=== PATIENT | female | born 1955 | race Caucasian/White ===

== ENCOUNTER 2019-03-24 08:15 | Outpatient (CLI) | payer MEDICARE, MEDICAID, SELFPAY ==
[2019-03-24 09:05] LABS: Basophils % 0.5 %; Eosinophils # 0.3 10^3/uL (0.0-0.8); Eosinophils % 5.1 %; Hematocrit 36.4 % (37.0-47.0); Hemoglobin 12.1 g/dL (11.5-15.3); Lymphocytes # 1.3 10^3/uL (0.8-4.8); Lymphocytes % 23.1 %; Mean Corpuscular HGB Conc 33.2 g/dL (30.0-36.0); Mean Corpuscular Hemoglobin 28.8 pg (28.0-34.0); Mean Corpuscular Volume 86.7 fL (81-99); Mean Platelet Volume 12.1 fL (7.4-10.4); Monocytes # 0.4 10^3/uL (0.2-0.9); Monocytes % 6.7 %; Neutrophils # 3.5 10^3/uL (1.8-7.7); Neutrophils % 64.4 %; Nucleated Red Blood Cells % 0 %; Platelet Count 80 10^3/cmm (130-400); Red Cell Distribution Width 13.5 % (12.1-15.1); White Blood Count 5.5 10^3/uL (4.0-10.0)
[2019-03-24 09:22] LABS: Creatinine Urine, Random 49 mg/dL (28-217)
[2019-03-24 09:24] LABS: Microalbum Creatinine Ratio Ur 20 mg/dL (0-20); Microalbumin Random Urine 1 ug/dL (0-20)
[2019-03-24 09:30] LABS: Alanine Aminotransferase 36 U/L (0-33); Albumin Level 3.7 g/dL (3.5-5.2); Alkaline Phosphatase 116 IU/L (35-105); Anion Gap 15.2 (5-19); Aspartate Amino Transferase 44 U/L (0-32); Blood Urea Nitrogen 9 mg/dL (8-23); Calcium 10.5 mg/Dl (8.8-10.2); Carbon Dioxide 25 mmol/L (22-29); Chloride 101 mmol/L (98-107); Chol HDL Ratio 4.71 mg/dL (0.0-4.40); Cholesterol 226 mg/dL (0-200); Globulin 3.2 g/dL (1.3-4.6); Glomerular Filtration Rate 125.4 mL/min (90-130); Glucose 188 mg/dL (74-106); HDL Cholesterol 48 mg/dL (60-100); LDL Cholesterol Calculated 142 mg/dL (50-129); LDL HDL Ratio 2.96 RATIO (0.00-3.22); Potassium 4.2 mmol/L (3.5-5.1); Sodium 137 mmol/L (136-145); Thyroid Stimulating Hormone 1.77 uIU/mL (0.27-4.20); Total Bilirubin 0.4 mg/dL (0.15-1.2); Total Protein 6.9 g/dL (6.6-8.7); Triglycerides 178 mg/dL (0-150)
[2019-03-25 09:23] LABS: Estmated Average Glucose 203; Hemoglobin A1C 8.7 % (4.0-6.0)
== END 2019-03-24 08:16 | disposition home or self-care (01) ==
LOC: LAB 08:20
PROVIDERS: Family Provider Family Medicine; PCP Family Medicine; Visit Provider Family Medicine
DX: D64.9 Anemia, unspecified (principal); E11.9 Type 2 diabetes mellitus without complications; E03.9 Hypothyroidism, unspecified; E78.00 Pure hypercholesterolemia, unspecified
CPT/HCPCS: 36415; 80053; 80061; 82044; 83036; 84443; 85025

== ENCOUNTER 2019-06-24 09:18 | Outpatient (CLI) | payer MEDICARE, MEDICAID, SELFPAY ==
[2019-06-24 10:08] LABS: Hematocrit 36.6 % (37.0-47.0); Hemoglobin 11.9 g/dL (11.5-15.3); Mean Corpuscular HGB Conc 32.5 g/dL (30.0-36.0); Mean Corpuscular Hemoglobin 29.7 pg (28.0-34.0); Mean Corpuscular Volume 91.3 fL (81-99); Mean Platelet Volume 12.6 fL (7.4-10.4); Platelet Count 79 10^3/cmm (130-400); Red Blood Count 4.01 10^6/uL (4.1-5.3); Red Cell Distribution Width 13.4 % (12.1-15.1); White Blood Count 5.8 10^3/uL (4.0-10.0)
[2019-06-24 10:30] LABS: Alanine Aminotransferase 32 U/L (0-33); Albumin Level 3.9 g/dL (3.5-5.2); Alkaline Phosphatase 91 IU/L (35-105); Anion Gap 15.3 (5-19); Aspartate Amino Transferase 48 U/L (0-32); Blood Urea Nitrogen 6 mg/dL (8-23); Calcium 9.6 mg/dL (8.5-10.5); Carbon Dioxide 24 mmol/L (22-29); Chloride 102 mmol/L (98-107); Chol HDL Ratio 4.44 mg/dL (0.0-4.40); Cholesterol 213 mg/dL (0-200); Globulin 3.2 g/dL (1.3-4.6); Glomerular Filtration Rate 125.4 mL/min (90-130); Glucose 171 mg/dL (65-115); HDL Cholesterol 48 mg/dL (60-100); LDL Cholesterol Calculated 140 mg/dL (50-129); Osmolality Calculated 284 mOsm/kg (285-295); Potassium 4.3 mmol/L (3.5-5.1); Sodium 137 mmol/L (136-145); Thyroid Stimulating Hormone 1.07 uIU/mL (0.27-4.20); Total Bilirubin 0.4 mg/dL (0.15-1.2); Total Protein 7.1 g/dL (6.6-8.7); Triglycerides 126 mg/dL (0-150); VLDL Cholestrol Calculation 25 mg/dL (0-30)
[2019-06-24 10:46] LABS: Absolute Eosinophils 0.1 10^3/cmm (0.0-0.7); Absolute Segmented Neutrophil 3.7 10/cmm (1.6-7.1); Eosinophils 3 %; Lymphocytes 32 %; Monocytes Absolute 0.1 10^3/cmm (0.1-0.6); Platelet Estimate Decreased (Normal); Segmented Neutrophils 64 %; Total Cells Counted 100 (0-100)
[2019-06-24 11:03] LABS: Estmated Average Glucose 163; Hemoglobin A1C 7.3 % (4.0-6.0)
== END 2019-06-24 09:19 | disposition home or self-care (01) ==
PROVIDERS: Family Provider Family Medicine; PCP Family Medicine; Visit Provider Family Medicine
DX: D64.9 Anemia, unspecified (principal); E11.9 Type 2 diabetes mellitus without complications; E03.9 Hypothyroidism, unspecified; E78.00 Pure hypercholesterolemia, unspecified
CPT/HCPCS: 80053; 80061; 83036; 84443; 85007; 85027

== ENCOUNTER 2019-07-21 09:53 | Outpatient (CLI) | payer MEDICARE, MEDICAID, SELFPAY ==
--- NOTE | 2019-07-21 10:02 | US_ITS ---
WS: [id number] ULTRASOUND ABDOMEN LIMITED CLINICAL INFORMATION: CIRRHOSIS OF LIVER COMPARISON: Ultrasound January 18, 2019 FINDINGS: Technically difficult examination. Hepatomegaly with trace perihepatic fluid. Size: Enlarged Craniocaudal length: 17.9 cm. Echogenicity: Coarse echogenicity Surface nodularity: Present Mass (size and location): 1.5 x 1.0 hypoechoic ill-defined nodule left hepatic lobe is unchanged. Bile ducts Intrahepatic ducts: Normal. Common bile duct diameter: 0.5 cm. Gallbladder Cholecystectomy Pancreas Normal as visualized. Right kidney: Normal. Hydronephrosis: None. Size: 10.1 cm x 4.1 cm x 5.1 cm. Abdominal aorta and IVC Visualized portions are normal. Ascites: None. US/US abdomen limited [id number] IMPRESSION: 1. Hepatomegaly with coarse hepatic echogenicity consistent with hepatocellula r disease. Slightly cirrhotic configuration. 2. Trace perihepatic ascites. 3. Stable small hypoechoic nodule along the left hepatic lobe measuring 1.5 x 1.0 cm again is ill-defined and not significantly changed. 4. Prior cholecystectomy. 5. Portal vein and splenic vein appear patent. 6. No hydronephrosis in right kidney.
== END 2019-07-21 09:54 | disposition home or self-care (01) ==
LOC: RAD 09:58
PROVIDERS: PCP Family Medicine; Visit Provider Internal Medicine Gastroenterology
DX: K74.60 Unspecified cirrhosis of liver (principal); R16.0 Hepatomegaly, not elsewhere classified
CPT/HCPCS: 76705

== ENCOUNTER 2019-12-24 09:53 | Outpatient (CLI) | payer MEDICARE, MEDICAID, SELFPAY ==
[2019-12-24 10:21] LABS: Basophils # 0.1 10^3/uL (0.0-0.1); Basophils % 0.7 %; Eosinophils # 0.3 10^3/uL (0.0-0.8); Eosinophils % 3.8 %; Hematocrit 38.1 % (37.0-47.0); Hemoglobin 12.2 g/dL (11.5-15.3); Lymphocytes # 1.2 10^3/uL (0.8-4.8); Lymphocytes % 17.1 %; Mean Corpuscular Hemoglobin 29.5 pg (28.0-34.0); Mean Platelet Volume 12.1 fL (7.4-10.4); Monocytes # 0.6 10^3/uL (0.2-0.9); Monocytes % 7.8 %; Neutrophils # 4.97 10^3/uL (1.8-7.7); Neutrophils % 70.3 %; Nucleated Red Blood Cells % 0 %; Platelet Count 97 10^3/cmm (130-400); Red Blood Count 4.14 10^6/uL (4.1-5.3); Red Cell Distribution Width 13.9 % (12.1-15.1); White Blood Count 7.1 10^3/uL (4.0-10.0)
[2019-12-24 10:41] LABS: Anion Gap 13.4 (5-19); Blood Urea Nitrogen 8 mg/dL (8-23); Calcium 9.7 mg/dL (8.5-10.5); Carbon Dioxide 24 mmol/L (22-29); Chloride 106 mmol/L (98-107); Glucose 128 mg/dL (65-115); Osmolality Calculated 288 mOsm/kg (285-295); Potassium 4.4 mmol/L (3.5-5.1); Sodium 139 mmol/L (136-145)
[2019-12-24 11:51] LABS: Estmated Average Glucose 154
== END 2019-12-24 09:54 | disposition home or self-care (01) ==
LOC: LAB 10:04
PROVIDERS: PCP Family Medicine; Visit Provider Family Medicine
DX: D64.9 Anemia, unspecified (principal); K74.60 Unspecified cirrhosis of liver; D61.818 Other pancytopenia; E11.9 Type 2 diabetes mellitus without complications
CPT/HCPCS: 36415; 80048; 83036; 85025

== ENCOUNTER 2020-01-14 17:50 | Emergency (ER) | payer MEDICARE, MEDICAID, SELFPAY ==
[2020-01-14 17:59] VITALS: BP 153/80; PULSE 72; RESP 16; TEMP 36.8; O2SAT 96; BMI 40.4
[2020-01-14 18:24] LABS: Basophils % 0.4 %; Eosinophils # 0.3 10^3/uL (0.0-0.8); Eosinophils % 3.4 %; Hematocrit 37.2 % (37.0-47.0); Hemoglobin 12.1 g/dL (11.5-15.3); Lymphocytes # 1.2 10^3/uL (0.8-4.8); Mean Corpuscular HGB Conc 32.5 g/dL (30.0-36.0); Mean Corpuscular Hemoglobin 29.2 pg (28.0-34.0); Mean Corpuscular Volume 89.9 fL (81-99); Mean Platelet Volume 11.3 fL (7.4-10.4); Monocytes # 0.6 10^3/uL (0.2-0.9); Monocytes % 6.9 %; Neutrophils # 6.04 10^3/uL (1.8-7.7); Neutrophils % 73.9 %; Nucleated Red Blood Cells % 0 %; Platelet Count 116 10^3/cmm (130-400); Red Blood Count 4.14 10^6/uL (4.1-5.3); Red Cell Distribution Width 13.6 % (12.1-15.1); White Blood Count 8.2 10^3/uL (4.0-10.0)
[2020-01-14 18:39] LABS: Alanine Aminotransferase 34 U/L (0-33); Albumin Level 4.1 g/dL (3.5-5.2); Alkaline Phosphatase 92 IU/L (35-105); Aspartate Amino Transferase 52 U/L (0-32); Blood Urea Nitrogen 9 mg/dL (8-23); Calcium 9.5 mg/dL (8.5-10.5); Carbon Dioxide 26 mmol/L (22-29); Chloride 102 mmol/L (98-107); Globulin 2.6 g/dL (1.3-4.6); Glomerular Filtration Rate 101.3 mL/min (90-130); Glucose 109 mg/dL (65-115); Lipase 40 U/L (13-60); Osmolality Calculated 283 mOsm/kg (285-295); Sodium 137 mmol/L (136-145); Total Bilirubin 0.7 mg/dL (0.15-1.2); Total Protein 6.7 g/dL (6.6-8.7)
--- NOTE | 2020-01-14 20:13 | W.ED.ABDPA2 ---
HPI - Abdominal Pain General: Chief Complaint: Abdominal Pain Stated Complaint: adominal pain, swelling Time Seen by Provider: 01/14/20 19:59 Source: patient Mode of arrival: ambulatory Limitations: no limitations History of Present Illness: HPI narrative: 64-year-old female states she has been having abdominal pain over the last month. States the pain is been diffuse and cramping and worsening over the last 3 days. She denies any fever. Patient denies any vomiting or diarrhea. She denies any worsening or improving factors. She states her pain is currently a 5 out of 10. MD elicited complaint: abdominal pain Associated Symptoms: Denies chills, dysuria and fever(s) Review of Systems Const: Denies: fever(s), chills, body aches or change in appetite Eyes: Denies: blurry vision or eye discomfort ENMT: Denies: throat pain or dental pain Card: Denies: chest pain Resp: Denies: dyspnea GI: Reports: abdominal pain : Denies: dysuria Musc: Denies: neck pain or back pain Skin/Breast: Denies: rash Neuro: Denies: headache(s) Psych: Denies: depression Prabhu/Lymph: Denies: easy bruising All/Imm: Denies: urticaria Physical Exam Const: COMMON NORMALS: no acute distress, patient oriented x3 and healthy appearing HENMT: COMMON NORMALS: normocephalic and atraumatic HEAD & SCALP: normocephalic and atraumatic Eye: COMMON NORMALS: Equal, round and reactive pupils present and EOMs intact bilaterally PUPIL: Yes Equal, round and reactive pupils present Neck/C-Spine: COMMON NORMALS: full ROM and supple Chest: COMMONS NORMALS: normal inspection of the chest and normal palpation of entire chest wall Resp: COMMON NORMALS: normal respiratory effort, No retractions, No use of accessory muscles and clear to auscultation bilaterally AUSCULTATION: clear to auscultation bilaterally Cardio: COMMON NORMALS: regular rate, regular rhythm and No murmurs present (Cardio) RATE: regular rate RHYTHM: regular rhythm GI: COMMON NORMALS: Normal to inspection, nondistended, normoactive bowel sounds present, non-tender and no masses PALPATION: Yes Tenderness to palpation present (GI) (Diffuse) Extremity: COMMON NORMALS: normal to inspection and full ROM Neuro: COMMON NORMALS: patient oriented x3, moves all extremities and no focal motor deficits Psych: COMMON NORMALS: mental status grossly normal, Normal thought process present and cooperative THOUGHT PROCESS: Normal thought process present Skin: COMMON NORMALS: no rashes or lesions noted and no wounds GENERAL SKIN EXAM: no rashes or lesions noted Course Vital Signs: Vital signs: Vital Signs Temperature 98.3 F 01/14/20 17:59 Pulse Rate 72 01/14/20 17:59 Respiratory Rate 18 01/14/20 20:24 Blood Pressure 153/80 01/14/20 17:59 Pulse Oximetry 96 01/14/20 17:59 MDM - Abdominal Pain MDM Narrative: Medical decision making narrative: Phyllis presents with abdominal pain for months. CT did show ascites along with lymphadenopathy and pulmonary nodules. I informed her she needs to follow-up with her primary care doctor along with surgery. With these findings I am concerned of a possible cancer as well. I informed her it is important she follows up as soon as possible. She is to return if worsening. Patient's pain is improved and she is stable for discharge. Lab Data: Labs: Lab Results 01/14/20 01/14/20 01/14/20 Range/Units 18:15 18:15 20:35 WBC 8.2 (4.0-10.0) 10^3/ uL RBC 4.14 (4.1-5.3) 10^6/u L Hgb 12.1 (11.5-15.3) g/dL Hct 37.2 (37.0-47.0) % MCV 89.9 (81-99) fL MCH 29.2 (28.0-34.0) pg MCHC 32.5 (30.0-36.0) g/dL RDW 13.6 (12.1-15.1) % Plt Count 116 L (130-400) 10^3/c mm MPV 11.3 H (7.4-10.4) fL Neut % (Auto) 73.9 % Lymph % (Auto) 15.0 % [place] % (Auto) 6.9 % Eos % (Auto) 3.4 % Baso % (Auto) 0.4 % Neut # (Auto) 6.04 (1.8-7.7) 10^3/u L Lymph # (Auto) 1.2 (0.8-4.8) 10^3/u L School[place] # (Auto) 0.6 (0.2-0.9) 10^3/u L Eos # (Auto) 0.3 (0.0-0.8) 10^3/u L Baso # (Auto) 0.0 (0.0-0.1) 10^3/u L Nucleated RBC % (a uto) 0 % Nucleated RBCs # 0.0 /100WBC Sodium 137 (136-145) mmol/L Potassium 4.0 (3.5-5.1) mmol/L Chloride 102 (98-107) mmol/L Carbon Dioxide 26 (22-29) mmol/L Anion Gap 13.0 (5-19) BUN 9 (8-23) mg/dL Creatinine 0.6 (0.5-0.9) mg/dL GFR Calculation 101.3 (90-130) mL/min Glucose 109 (65-115) mg/dL Calculated Osmolal ity 283 L (285-295) mOsm/k g Calcium 9.5 (8.5-10.5) mg/dL Total Bilirubin 0.7 (0.15-1.2) mg/dL AST 52 H (0-32) U/L ALT 34 H (0-33) U/L Alkaline Phosphata se 92 (35-105) IU/L Total Protein 6.7 (6.6-8.7) g/dL Albumin 4.1 (3.5-5.2) g/dL Globulin 2.6 (1.3-4.6) g/dL Lipase 40 (13-60) U/L Urine Color Yellow (Yellow) Urine Appearance Sl cloudy A (CLEAR) Urine pH 5 (5-7) Ur Specific Gravit y 1.015 (1.005-1.030) Urine Protein Neg (Negative) Urine Glucose (UA) Norm (Normal) Urine Ketones Negative (Negative) Urine Blood Neg (Negative) Urine Nitrate Negative (Negative) Urine Bilirubin Neg (Negative) Urine Urobilinogen Norm (Negative) mg/dL Ur Leukocyte Bessy ase 2+ H (Negative) Amorphous Sediment Not Reportable Imaging Data ^: CT Abd/Pel: Radiologist's impression: [address] [address] [address] Scan Report Signed Patient: Lexi Halln Margarette Unit #: [id number] : 1955 Age/Sex: 64 / F ADM Date: 01/14/20 Loc: ER Room/Bed: Attending Dr: Ordering Provider/Ordering MD: Sundeep Zuleta MD Date of Service: 01/14/20 Procedure(s): CT abdomen pelvis w con* [id number] Accession Number(s): [id number] Report Number: [id number] PROCEDURE INFORMATION: Exam: CT Abdomen And Pelvis With Contrast Exam date and time: 01/14/2020 8:34 PM Age: 64 years old Clinical indication: Mass, lump, or swelling; Generalized; Abdominal pain; Prior surgery; Surgery type: Appy, hysterectomy, cholecystectomy, back; Additional info: Abd pain TECHNIQUE: Imaging protocol: Computed tomography of the abdomen and pelvis with intravenous contrast. Radiation optimization: All CT scans at this facility use at least one of these dose optimization techniques: automated exposure control; mA and/or kV adjustment per patient size (includes targeted exams where dose is matched to clinical indication); or iterative reconstruction. Contrast material: OMNI 300; Contrast volume: 95 ml; Contrast route: INTRAVENOUS (IV); COMPARISON: CT abdomen pelvis w con* [id number] 03/19/2016 10:36 AM RADIATION DOSE METRICS: Total DLP (mGy-cm): 1533.47 FINDINGS: Lungs: Within the lung bases numerous small pulmonary nodules most under 4 mm. The largest measures 6.8 mm located in the right lower lobe series 2, image 7. Where comparison can be made there appears to be no significant overall change since 03/19/2016. Liver: Cirrhosis of the liver. No visible hepatic mass or cystic structure. Gallbladder and bile ducts: Status post cholecystectomy. Pancreas: Unremarkable. No ductal dilation. Spleen: Splenomegaly. Adrenal glands: Normal. No mass. Kidneys and ureters: Unremarkable. No hydronephrosis. Stomach and bowel: Diverticulosis coli, primarily the sigmoid colon, without visible evidence of acute diverticulitis. Nonobstructive bowel pattern. No visible adynamic or reactive ileus. Appendix: Status post appendectomy. Intraperitoneal space: Moderate volume intraperitoneal ascites. Diffuse mesenteric edema. Vasculature: Portal vein remains patent. Evidence of portal venous hypertension. The abdominal aorta is nonaneurysmal. Mild arterial sclerotic disease. Lymph nodes: Retroperitoneal pericaval and periaortic, para celiac, fausto hepatis, and perigastric lymphadenopathy. Largest para-aortic lymphadenopathy complex measures 31 mm x 25 mm. Rare prominent retrocrural lymph node. Urinary bladder: Unremarkable as visualized. Reproductive: Status post hysterectomy. Bones/joints: Advanced degenerative disc disease L4/5 with disc space height loss and vacuum disc phenomenon. No visible osteolytic or osteoblastic destructive process. Soft tissues: Bilateral inguinal hernias containing fat only. Other findings: Marked obesity. CT/CT abdomen pelvis w con* [id number] IMPRESSION: 1. Retroperitoneal, para celiac, fausto hepatis, perigastric, and retrocrural lymphadenopathy. 2. Moderate volume intraperitoneal ascites. 3. Portal venous hypertension. 4. Cirrhosis of the liver. 5. Splenomegaly. 6. Diverticulosis coli without evidence for acute diverticulitis. 7. Numerous pulmonary nodules within the lung bases that appear stable since 03/19/2016. For patients at low risk (minimal or absent history of smoking and of other known risk factors), no routine follow-up is indicated. For patients at high risk (history of smoking or of other known risk factors), consider optional CT Chest at 12 months. (Reference: Shani) Discharge Plan Discharge Patient Disposition: Home Clinical Impression: Abdominal ascites, Abdominal lymphadenopathy Abdominal pain Qualifiers: Abdominal location: generalized Qualified Code(s): R10.84 - Generalized abdominal pain Condition: Stable Prescriptions: New ondansetron 4 mg tablet,disintegrating 4 mg PO Q6H PRN (Reason: nausea and vomiting) Qty: 14 RF: 0 No Action metformin 500 mg tablet See Rx Instructions .ROUTE .COMPLEX RF: 0 glipizide 5 mg tablet extended release 24hr 10 mg PO DAILY RF: 0 levothyroxine 25 mcg tablet 25 mcg PO DAILY RF: 0 nadolol 20 mg tablet 20 mg PO DAILY RF: 0 iron 325 mg (65 mg iron) Tablet 325 mg PO DAILY RF: 0 Cinnamon 500 mg Capsule 500 mg PO DAILY RF: 0 lactulose 10 gram/15 mL solution See Rx Instructions .ROUTE .COMPLEX RF: 0 Januvia 50 mg tablet 50 mg PO DAILY RF: 0 Xifaxan 550 mg tablet 550 mg PO BID RF: 0 Probiotic 1 cap PO PRN RF: 0 Vitamin C 1 tab PO DAILY RF: 0 Super B Complex Tablet 1 tab PO DAILY PRN (Reason: unknown) RF: 0 Blm 1 cap PO DAILY PRN (Reason: unknown) RF: 0 Digest And Cleanse See Rx Instructions .ROUTE .COMPLEX RF: 0 Juvatone 1 cap PO DAILY PRN (Reason: unknown) RF: 0 Milkthistle 1 tab PO DAILY PRN (Reason: unknown) RF: 0 Thyromin 1 cap PO DAILY PRN (Reason: unknown) RF: 0 fenugreek seed extract 1 cap PO DAILY PRN (Reason: unknown) RF: 0 vitamin E 1 cap PO DAILY PRN (Reason: unknown) RF: 0 Discharge Orders: Discharge Order (Routine); Ordered 01/14/20 Ordered By: Sundeep Zuleta Referrals: Kami Mcgee MD [Primary Care Provider] - Discharge Diet: Advance as tolerated Discharge Activity: Resume usual activity Patient Instructions: Abdominal Pain (ED) Coding Level of Care Code ED Ammonia Still Operator for Chg Fwd Exam Comprehensive
[2020-01-14 20:24] VITALS: RESP 18
[2020-01-14] MEDS: morphine 4 mg/mL SDV 1 mL IVP (20:24)
[2020-01-14] MEDS: ondansetron 2 mg/ML SDV 2 mL 4 MG IVP (20:24)
[2020-01-14] MEDS: sodium chloride 0.9% 1,000 ML 999 ML IV (20:25)
[2020-01-14] MEDS: iohexol 300 mg/mL 100 mL Btl IV (21:02)
[2020-01-14 21:38] LABS: Add Urine Microscopic? YES; Bilirubin Urine Neg (Negative); Blood Urine Neg (Negative); Glucose Urine UA Norm (Normal); Ketones Urine Negative (Negative); Leukocyte Esterase Urine 2+ (Negative); Nitrate Urine Negative (Negative); Protein Urine Neg (Negative); Specific Gravity, Urine 1.015 (1.005-1.030); Urine Color Yellow (Yellow); Urobilinogen Urine Norm (Negative); pH Urine 5 (5-7)
[2020-01-14 21:42] LABS: Add Urine Culture? No; Bacteria Urine TRACE /hpf; Calcium Oxalate Crystals Urine 80-100 /hpf; RBC Urine 0-4 /hpf (0-2); Squamous Epithelial Cell Urine 15-25 /hpf (0-5)
[2020-01-14 21:47] VITALS: BP 169/83; PULSE 69; RESP 18; O2SAT 95
--- NOTE | 2020-01-17 10:44 | DCPLANNER ---
quantitative manager had message to schedule follow up appointment for patient with general surgery. quantitative manager e mailed Allison at [facility]. quantitative manager gave clinic patients information, patients information will be printed and reviewed. Clinic will call patient with appointment information.
--- NOTE | 2020-01-18 11:04 | DCPLANNER ---
Patient has a follow up appointment scheduled for Friday, January 20, 2020 at 9:[address] Ewing. Clinic will call patient with appointment information.
--- NOTE | 2020-02-02 13:25 | DCPLANNER ---
Patient had a follow up appointment scheduled for 01.20.[address] [facility] general surgery - patient did attend appointment.
== END 2020-01-14 21:55 | disposition home or self-care (01) ==
PROVIDERS: Emergency Provider Emergency Medicine; PCP Family Medicine
DX: R10.84 Generalized abdominal pain (principal); R18.8 Other ascites; R59.1 Generalized enlarged lymph nodes
CPT/HCPCS: 12345; 36415; 74177; 80053; 81001; 83690; 85025; 96361; 96374; 96375; 99282; 99283; J2270; J2405; J7030; Q9967

== ENCOUNTER 2020-01-28 08:39 | Outpatient (CLI) | payer MEDICARE, MEDICAID, SELFPAY ==
--- NOTE | 2020-01-28 09:30 | US_ITS ---
WS: [id number] Ultrasound, limited abdomen. HISTORY: Patient presents for paracentesis. Small to moderate amount of peritoneal fluid was noted on a CT from 01/14/2020. COMPARISON: CT 01/14/2020. There are a very few pockets of fluid within the peritoneal cavity. Insufficient amount for paracente sis to be performed safely. The amount of fluid has significantly decreased when compared to the CT. US/US abdomen lmt fluid [id number] IMPRESSION: Insufficient peritoneal fluid for paracentesis.
== END 2020-01-28 08:40 | disposition home or self-care (01) ==
LOC: RAD 08:43
PROVIDERS: PCP Family Medicine; Visit Provider Family Medicine
DX: K75.81 Nonalcoholic steatohepatitis (NASH) (principal); R18.8 Other ascites
CPT/HCPCS: 76705

== ENCOUNTER 2020-02-03 10:59 | Outpatient (CLI) | payer MEDICARE, MEDICAID, SELFPAY ==
--- NOTE | 2020-02-03 11:05 | MM_ITS ---
WS: [id number] BILATERAL DIGITAL SCREENING MAMMOGRAPHY WITH CAD CLINICAL INFORMATION: SCREENING HISTORY: Screening mammogram. No current complaints. COMPARISON: TECHNIQUE: Bilateral CC and MLO views. FINDINGS: Scattered fibroglandular densities bilaterally. No suspicious focal mass, asymmetry, calcifications, or architectural distortion. No evidence of malignancy. Punctate and lucent centered calcifications. MM/[place] [id number] IMPRESSION: BI-RADS: 2-Benign FOLLOW UP: 1 Year Follow-up Recommend return to annual screening mammography.
== END 2020-02-03 11:00 | disposition home or self-care (01) ==
LOC: RADSHAW 11:03
PROVIDERS: PCP Family Medicine; Visit Provider Family Medicine
DX: Z12.31 Encounter for screening mammogram for malignant neoplasm of breast (principal)
CPT/HCPCS: 77067

== ENCOUNTER 2020-02-23 08:54 | Outpatient (CLI) | payer MEDICARE, MEDICAID, SELFPAY ==
[2020-02-23 11:16] LABS: Basophils % 0.6 %; Eosinophils # 0.3 10^3/uL (0.0-0.8); Eosinophils % 4.3 %; Hematocrit 38.7 % (37.0-47.0); Hemoglobin 12.4 g/dL (11.5-15.3); Lymphocytes # 0.9 10^3/uL (0.8-4.8); Lymphocytes % 13.1 %; Mean Corpuscular Volume 90.4 fL (81-99); Mean Platelet Volume 12.6 fL (7.4-10.4); Monocytes # 0.6 10^3/uL (0.2-0.9); Monocytes % 8.4 %; Neutrophils # 4.96 10^3/uL (1.8-7.7); Neutrophils % 73.3 %; Nucleated Red Blood Cells % 0 %; Platelet Count 80 10^3/cmm (130-400); Red Blood Count 4.28 10^6/uL (4.1-5.3); Red Cell Distribution Width 13.4 % (12.1-15.1); White Blood Count 6.8 10^3/uL (4.0-10.0)
[2020-02-23 11:53] LABS: Alanine Aminotransferase 32 U/L (0-33); Albumin Level 3.9 g/dL (3.5-5.2); Alkaline Phosphatase 101 IU/L (35-105); Anion Gap 14.5 (5-19); Aspartate Amino Transferase 44 U/L (0-32); Blood Urea Nitrogen 11 mg/dL (8-23); Calcium 9.4 mg/dL (8.5-10.5); Carbon Dioxide 24 mmol/L (22-29); Chloride 101 mmol/L (98-107); Globulin 3.1 g/dL (1.3-4.6); Glomerular Filtration Rate 101.3 mL/min (90-130); Glucose 193 mg/dL (65-115); Lipase 48 U/L (13-60); Osmolality Calculated 285 mOsm/kg (285-295); Potassium 4.5 mmol/L (3.5-5.1); Sodium 135 mmol/L (136-145); Total Bilirubin 0.8 mg/dL (0.15-1.2)
[2020-02-23 12:14] LABS: Iron 64 ug/dL (37-145); Lactate Dehydrogenase 176 U/L (135-214); Percent Saturation 16.5 % (20-50); Total Iron Binding Capacity 386 mcg/dl; Unsaturated Iron Binding 322 ug/dL (112-347); Vitamin B12 443 pg/mL (232-1245)
[2020-02-23 12:51] LABS: Folate Level 16.5 ng/mL (4.8-37.3)
[2020-02-23 13:43] LABS: Carcinoembryonic Antigen 2.5 ng/mL (0.0-4.7)
[2020-02-23 13:44] LABS: Tumor Marker Alpha Fetoprotein 4.9 ng/mL (0-8.3)
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
== END 2020-02-23 08:55 | disposition home or self-care (01) ==
LOC: ONCMED 08:57
PROVIDERS: PCP Family Medicine; Visit Provider Internal Medicine Medical Oncology
DX: R59.0 Localized enlarged lymph nodes (principal); K74.60 Unspecified cirrhosis of liver; K76.6 Portal hypertension; R16.1 Splenomegaly, not elsewhere classified; I10 Essential (primary) hypertension; E11.9 Type 2 diabetes mellitus without complications; E03.9 Hypothyroidism, unspecified; G47.33 Obstructive sleep apnea (adult) (pediatric)
CPT/HCPCS: 36415; 80053; 82105; 82378; 82607; 82746; 83540; 83550; 83615; 83690; 85025; 99205

== ENCOUNTER 2020-05-19 09:05 | Outpatient (CLI) | payer MEDICARE, MEDICAID, SELFPAY ==
[2020-05-19 09:52] LABS: Basophils % 0.5 %; Eosinophils # 0.2 10^3/uL (0.0-0.8); Eosinophils % 3.7 %; Hematocrit 38.3 % (37.0-47.0); Hemoglobin 12.8 g/dL (11.5-15.3); Lymphocytes # 1.1 10^3/uL (0.8-4.8); Lymphocytes % 16.2 %; Mean Corpuscular HGB Conc 33.4 g/dL (30.0-36.0); Mean Corpuscular Hemoglobin 29.6 pg (28.0-34.0); Mean Corpuscular Volume 88.5 fL (81-99); Mean Platelet Volume 12.1 fL (7.4-10.4); Monocytes # 0.5 10^3/uL (0.2-0.9); Monocytes % 7.7 %; Neutrophils # 4.68 10^3/uL (1.8-7.7); Neutrophils % 71.6 %; Nucleated Red Blood Cells % 0 %; Platelet Count 86 10^3/cmm (130-400); Red Blood Count 4.33 10^6/uL (4.1-5.3); Red Cell Distribution Width 13.2 % (12.1-15.1); White Blood Count 6.5 10^3/uL (4.0-10.0)
[2020-05-19 10:06] LABS: Tumor Marker Alpha Fetoprotein 6.3 ng/mL (0-8.3)
[2020-05-19 10:18] LABS: Alanine Aminotransferase 32 U/L (0-33); Albumin Level 4.1 g/dL (3.5-5.2); Alkaline Phosphatase 109 IU/L (35-105); Anion Gap 14.2 (5-19); Aspartate Amino Transferase 35 U/L (0-32); Blood Urea Nitrogen 9 mg/dL (8-23); Calcium 9.5 mg/dL (8.5-10.5); Carbon Dioxide 24 mmol/L (22-29); Chloride 103 mmol/L (98-107); Globulin 3.1 g/dL (1.3-4.6); Glomerular Filtration Rate 101.3 mL/min (90-130); Glucose 138 mg/dL (65-115); Lactate Dehydrogenase 151 U/L (135-214); Osmolality Calculated 285 mOsm/kg (285-295); Potassium 4.2 mmol/L (3.5-5.1); Sodium 137 mmol/L (136-145); Total Bilirubin 0.6 mg/dL (0.15-1.2); Total Protein 7.2 g/dL (6.6-8.7)
--- NOTE | 2020-05-19 10:48 | CT_ITS ---
WS: [id number] CT ABDOMEN PELVIS TECHNIQUE: Contrast-enhanced CT of the abdomen and pelvis with coronal and sagittal reformatted image s. CLINICAL INFORMATION: CIRRHOSIS/LYMPHADENOPATHY/RUQ ABD PAIN COMPARISON: MRI February 07, 2020 CT January 14, 2020 DLP: 1693.[address] scans at [facility] use at least one of these dose optimization techniques: automat ed exposure control; mA and/or kV adjustment per patient size (includes targeted exams where dose is matched to clinical indication); or iterative reconstruction. FINDINGS: Diffuse hepatic heterogeneous enhancement. Normal portal vein and splenic vein. Cholecystectomy. Cirr hotic configuration to the liver. Mild diffuse fatty infiltration. Small amount of perihepatic ascite s improved from previous. Mild mesenteric edema and induration in the upper abdomen. Several stable subcentimeter noncalcified pulmonary nodules in the lung bases. Splenomegaly. Heteroge neous splenic enhancement. Splenic vein is patent. Normal pancreatic parenchymal enhancement. Multipl e enlarged upper abdominal lymph nodes including celiac, SMA, fausto hepatis, gastrosplenic, retrocrur al, periaortic and retroperitoneal. Lymphadenopathy is similar in appearance the prior CT. A few lymp h nodes appear slightly smaller today but overall no significant change. Adrenal glands are normal. Normal renal enhancement. No hydronephrosis. Normal caliber abdominal aor ta. Aortic calcification. Sigmoid diverticulosis. No evidence of acute diverticulitis. No free fluid in the pelvis. Disc space narrowing worse L4-L5 and L5-S1. CT/CT abdomen pelvis w con* [id number] IMPRESSION: 1. Cirrhotic configuration to the liver with diffuse fatty infiltration. 2. Evidence of portal venous hypertension with splenomegaly. 3. Multiple enlarged upper abdominal, fausto hepatis, and periaortic lymph node s persistent and overall not significant changed from previous. 4. Sigmoid diverticulosis. No evidence of acute diverticulitis. 5. Small volume perihepatic ascites. 6. Mesenteric induration and edema along the mesenteric root and upper abdomen .
[2020-05-19] MEDS: iohexol 300 mg/mL 50 mL Btl PO (10:58)
[2020-05-19] MEDS: iohexol 300 mg/mL 100 mL Btl IV (11:54)
== END 2020-05-19 09:06 | disposition home or self-care (01) ==
LOC: ONCMED 09:06
PROVIDERS: PCP Family Medicine; Visit Provider Internal Medicine Medical Oncology
DX: K74.60 Unspecified cirrhosis of liver (principal); R59.0 Localized enlarged lymph nodes; R10.11 Right upper quadrant pain; D50.8 Other iron deficiency anemias; D69.59 Other secondary thrombocytopenia; R16.1 Splenomegaly, not elsewhere classified; K76.0 Fatty (change of) liver, not elsewhere classified; K76.6 Portal hypertension; K57.30 Diverticulosis of large intestine without perforation or abscess without bleeding; R18.8 Other ascites
CPT/HCPCS: 74177; 80053; 82105; 83615; 85025; Q9967

== ENCOUNTER 2020-05-23 05:56 | Outpatient (CLI) | payer MEDICARE, MEDICAID, SELFPAY ==
--- NOTE | 2020-05-26 14:19 | ONC FU_ITS ---
Dr. Nicole Patient Follow-Up Note Patient: Phyllis Hall I Unit #: [id number]: 1955 Dicatated By: Rogelio Nicole M.D.Date of Visit:May 23, 2020 Onc Med Follow-up/Prog Note Chief Complaint: Lymphadenopathy. History of Present Illness: This 64 year-old woman with abdominal/retroperitoneal lymphadenopathy. She had been seen here initially in January 2016 with iron deficiency anemia. She also had mild thrombocytopenia association with cirrhosis of the liver and splenomegaly. Her anemia corrected with oral iron supplementation. As of her follow-up visit on 02/06/2017 her hemoglobin was normal at 13.1 g. Platelet count was just mildly decreased at 98,000. She was recommended to continue her regular follow-up with Dr. Mcgee. Her CT scans of the abdomen and pelvis at that time revealed the liver to be enlarged and somewhat nodular in appearance. Fatty infiltration was seen. There was evidence of a prior cholecystectomy. There was no biliary distention. Pancreas as well as both kidneys and adrenal glands were normal there was abnormal thickening in the descending colon, findings felt to be consistent with colitis. There was no mention of lymphadenopathy. She had seen by a cnc machine setter in [place] for the liver cirrhosis. She had a presumed diagnosis of ARELLANO. She had undergone EGD with banding of esophageal varices in August 2016. During her subsequent follow-up she had started treatment with Xifaxan and nadolol. An MRI of the abdomen from January 2019 reported prominent periportal lymph nodes, the largest measuring 1.4 cm. The liver had a cirrhotic appearance but with no focal mass noted. On 01/14/2020 she was seen in the emergency room with increased abdominal pain and swelling. Her CT abdomen/pelvis again showed cirrhosis of the liver and splenomegaly. There was no visible hepatic mass or cystic structure noted. There was a moderate volume of intraperitoneal ascites as well as diffuse mesenteric edema. Also noted was retroperitoneal pericaval and periaortic, periceliac, fausto hepatis, and perigastric lymphadenopathy. The largest periaortic lymphadenopathy complex measured 3.1 x 2.5 cm. I had seen her in regard to the lymphadenopathy on 02/23/2020. As the lymph nodes were not in a location which was very accessible for biopsy and as she was not overtly symptomatic, I opted to manage her expectantly. Her medical illnesses, in addition to the iron deficiency anemia and liver cirrhosis, include hypertension, type 2 diabetes, hypothyroidism, and obstructive sleep apnea. She is a non-smoker. INTERIM HISTORY: Repeat CT abdomen/pelvis on 05/19/2020 showed cirrhotic configuration to the liver with diffuse fatty infiltration. There was evidence of portal venous hypertension with splenomegaly. Multiple enlarged abdominal, fausto hepatis, and periaortic lymph nodes appeared overall unchanged from the previous study. There was mild mesenteric edema and induration noted in the upper abdomen. She is seen for a follow-up visit. She complains that she has been feeling tired, but she is able to do light work. ECOG score is 1. She does report having had a significant reaction following the contrast administration with her recent CT scan, which included chest pain for a few minutes followed by pretty severe itching. Her appetite is so-so. She does not have fever or night sweats. She was given antibiotic therapy for a terrible sinus infection. She then felt really good for about 2 weeks, but her symptoms then started back up again. She has shortness of breath with activity. She has started having cough again, productive of yellowish sputum. She has had a lot of nausea and she has occasional burning in her stomach. She has chronic constipation. She has frequent urination with her diuretic. She has joint pain, mainly in her knees, but also sometimes in her shoulders. She has had sinus headache. She has a foot drop on the right, which is getting better. She has no other focal neurologic symptoms. Medications: Advanced Probiotic 1 Capsule Oral daily PRN, BLM 1 Tablet daily, Cinnamon 1,500 (500 mg) Tablet Oral daily, EQL [place] 3 Fish Oil (1000 mg) Capsule Oral daily, glipiZIDE ER 1 Tablet (of 5 mg) Tablet SR 24 HR Oral b.i.d., Januvia 1 (50 mg) Tablet Oral daily, juvatene 1 Tablet daily PRN, Lactulose 15 mL (of 20 g) Pack Oral t.i.d. PRN, Levothyroxine Sodium 1 Tablet (of 25 mcg) Oral daily, Magnesium Glycinate (665 mg) Capsule Oral daily, MetFORMIN HCl 1 Tablet (of 500 mg) Oral t.i.d., Milk Thistle 1 Capsule (of 175 mg) Oral daily, NAC 1 Capsule (of 600 mg) Oral daily, Nadolol 1 Tablet (of 20 mg) Oral daily, Spironolactone 1 Tablet (of 25 mg) Oral daily, Super B Complex Maxi 1 Tablet Oral daily PRN, Super C-500 1 Tablet Oral daily PRN, tthyromin 1 Tablet daily, Turmeric & Tamarind Blend Tablet Oral daily, Xifaxan 1 Tablet (of 550 mg) Oral b.i.d., Zinc 1 Tablet (of 50 mg) Capsule Oral daily Allergies: Ceftin, Cipro, Codeine Sulfate, Contrast Allergy PreMed Pack, Daypro, Lipitor, Lyrica, Neurontin, NSAIDs, Percocet, Soma, Sulfa Antibiotics, Tylox, and Ultram. Vital Signs: Performed on May 23, 2020 09:08 Height - 57.00 in Weight - 178.4 lbs (LOW) BSA - 1.71 sq.m BMI - 38.61 (HIGH) Temperature - 96.6 F (LOW) Pulse - 65 /min Respiration - 18 /min BP - 111/73 mm(hg) O2 Sat - 96 % Pain - 5 Fatigue - 4 Physical Examination: Constitutional - She looks pretty good generally, Eyes - Sclerae nonicteric. Conjunctivae clear, ENMT - No lesions noted in the oral cavity, Hematologic/Lymphatic - No cervical, clavicular, or axillary adenopathy, Respiratory - Lungs are clear with good air movement bilaterally, Cardiovascular - Heart rhythm is regular. There is a I/ systolic murmur. There is no gallop or rub noted, Abdomen - Mildly distended. Liver does not appear enlarged. I am not able to palpate the spleen. There is no abdominal mass noted. There is no obvious ascites and there is no inguinal adenopathy, Extremities - No edema, Neurologic - No focal neurologic deficits noted. Lab/Imaging: CBC shows hemoglobin 12.8 g, white blood cell count 6500, and platelet count 86,000. Comprehensive metabolic profile shows normal renal function with BUN 9 and creatinine 0.6 mg/dL. Bilirubin is normal at 0.6 mg/dL. The SGOT and alkaline phosphatase levels are slightly elevated. LDH is normal at 151 U/L. The AFP level is normal at 6.3 ng/mL. Problem List: 1. Patient with abdominal and retroperitoneal lymphadenopathy. The cause is uncertain. 2. She has cirrhosis of the liver, presumably due to ARELLANO. She has associated portal hypertension and splenomegaly with mild thrombocytopenia. She also has had associated ascites. 3. She has a history of iron deficiency anemia which corrected with oral iron supplementation. 4. Hypertension. 5. Type 2 diabetes. 6. Hypothyroidism. 7. Obstructive sleep apnea. Problems Addressed with this Encounter and Plan: Patient with abdominal and retroperitoneal lymphadenopathy. It appeared to have developed and worsened over period of several years. The cause is uncertain, but the appearance was concerning for either lymphoma or metastatic involvement from other primary malignancy. She has underlying cirrhosis of the liver, but with no clinical evidence for hepatocellular carcinoma. As the lymph nodes were in a location which was not very accessible for biopsy and that she was not overtly symptomatic, I had initially opted for expectant management. During follow-up she has had some nausea and some GERD symptoms and she also has chronic constipation. Her overall clinical status, though, has remained stable and her repeat CT shows no progression of the lymphadenopathy. As such, she remains on observation/expectant management. She will be given a prescription for famotidine and she is also given instructions for bowel regimen with senna/docusate. She will be scheduled for follow-up visit and repeat CT of the abdomen/pelvis in 6 months. Signed By: Rogelio Nicole M.D. <<Signature on File>>
== END 2020-05-23 05:57 | disposition home or self-care (01) ==
LOC: ONCMED 05:56
PROVIDERS: PCP Family Medicine; Visit Provider Internal Medicine Medical Oncology
DX: R59.0 Localized enlarged lymph nodes (principal); K74.60 Unspecified cirrhosis of liver; K76.6 Portal hypertension; R16.1 Splenomegaly, not elsewhere classified; D69.6 Thrombocytopenia, unspecified; R18.8 Other ascites; D50.9 Iron deficiency anemia, unspecified; K21.9 Gastro-esophageal reflux disease without esophagitis; K59.09 Other constipation; I10 Essential (primary) hypertension; E11.9 Type 2 diabetes mellitus without complications; E03.9 Hypothyroidism, unspecified; G47.33 Obstructive sleep apnea (adult) (pediatric)
CPT/HCPCS: 99214

== ENCOUNTER 2020-06-22 11:15 | Outpatient (CLI) | payer MEDICARE, MEDICAID, SELFPAY ==
[2020-06-22 11:51] LABS: Hematocrit 39.8 % (37.0-47.0); Hemoglobin 13.3 g/dL (11.5-15.3); Mean Corpuscular HGB Conc 33.4 g/dL (30.0-36.0); Mean Corpuscular Hemoglobin 29.6 pg (28.0-34.0); Mean Corpuscular Volume 88.6 fL (81-99); Platelet Count 99 10^3/cmm (130-400); Red Blood Count 4.49 10^6/uL (4.1-5.3); Red Cell Distribution Width 13.1 % (12.1-15.1)
[2020-06-22 12:05] LABS: Estmated Average Glucose 180; Hemoglobin A1C 7.9 % (4.0-6.0)
[2020-06-22 12:10] LABS: Absolute Eosinophils 0.1 10^3/cmm (0.0-0.7); Absolute Neutrophil 5.9 10^3/cmm (1.4-6.5); Absolute Segmented Neutrophil 5.6 10/cmm (1.6-7.1); Anisocytosis Trace; Band Neutrophils Absolute 0.3 10^3/cmm (0.0-1.2); Eosinophils 2 %; Giant Platelets 1+; Lymphocytes 10 %; Lymphocytes Absolute 0.7 10^3/cmm (1.2-3.4); Monocytes Absolute 0.3 10^3/cmm (0.1-0.6); Platelet Estimate Decreased (Normal); Segmented Neutrophils 80 %; Total Cells Counted 100 (0-100)
[2020-06-22 12:22] LABS: Alanine Aminotransferase 24 U/L (0-33); Albumin Level 4.1 g/dL (3.5-5.2); Alkaline Phosphatase 94 IU/L (35-105); Anion Gap 11.5 (5-19); Aspartate Amino Transferase 35 U/L (0-32); Blood Urea Nitrogen 12 mg/dL (8-23); Calcium 9.3 mg/dL (8.5-10.5); Carbon Dioxide 26 mmol/L (22-29); Chloride 104 mmol/L (98-107); Chol HDL Ratio 3.31 mg/dL (0.0-4.40); Cholesterol 182 mg/dL (0-200); Globulin 2.7 g/dL (1.3-4.6); Glomerular Filtration Rate 84.8 mL/min (90-130); Glucose 151 mg/dL (65-115); HDL Cholesterol 55 mg/dL (60-100); LDL Cholesterol Calculated 109 mg/dL (50-129); Osmolality Calculated 287 mOsm/kg (285-295); Potassium 4.5 mmol/L (3.5-5.1); Sodium 137 mmol/L (136-145); Thyroid Stimulating Hormone 1.07 uIU/mL (0.27-4.20); Total Bilirubin 0.9 mg/dL (0.15-1.2); Total Protein 6.8 g/dL (6.6-8.7); Triglycerides 88 mg/dL (0-150); VLDL Cholestrol Calculation 18 mg/dL (0-30)
== END 2020-06-22 11:16 | disposition home or self-care (01) ==
LOC: LAB 11:23
PROVIDERS: PCP Family Medicine; Visit Provider Family Medicine
DX: E03.9 Hypothyroidism, unspecified (principal); K74.60 Unspecified cirrhosis of liver
CPT/HCPCS: 36415; 80053; 80061; 83036; 84443; 85007; 85027

== ENCOUNTER 2020-11-22 08:49 | Outpatient (CLI) | payer MEDICARE, MEDICAID, SELFPAY ==
[2020-11-22 09:52] LABS: Basophils % 0.5 %; Eosinophils # 0.3 10^3/uL (0.0-0.8); Eosinophils % 4.7 %; Hematocrit 36.6 % (37.0-47.0); Hemoglobin 12.1 g/dL (11.5-15.3); Lymphocytes # 0.6 10^3/uL (0.8-4.8); Lymphocytes % 9.6 %; Mean Corpuscular HGB Conc 33.1 g/dL (30.0-36.0); Mean Corpuscular Hemoglobin 29.3 pg (28.0-34.0); Mean Corpuscular Volume 88.6 fl (81-99); Monocytes # 0.6 10^3/uL (0.2-0.9); Monocytes % 10.1 %; Neutrophils # 4.45 10^3/uL (1.8-7.7); Neutrophils % 74.8 %; Nucleated Red Blood Cells % 0 %; Platelet Count 78 10^3/cmm (130-400); Red Blood Count 4.13 10^6/uL (4.1-5.3); Red Cell Distribution Width 13.2 % (12.1-15.1)
--- NOTE | 2020-11-22 10:00 | CT_ITS ---
WS: [id number] CT ABDOMEN PELVIS TECHNIQUE: Noncontrast CT of the abdomen and pelvis with coronal and sagittal reformatted images. CLINICAL INFORMATION: LYMPHADENOPATHY/CIRRHOSIS COMPARISON: CT May 19, 2020 DLP: 1607.[address] scans at [facility] use at least one of these dose optimization techniques: automated e xposure control; mA and/or kV adjustment per patient size (includes targeted exams where dose is matc hed to clinical indication); or iterative reconstruction. FINDINGS: Prior cholecystectomy. Prior hysterectomy. Small amount of perihepatic ascites. Hepatomegaly. Central mesenteric edema unchanged from previous. Cirrhotic Configuration to the liver with diffuse fatty in filtration unchanged from previous. Evidence of portal venous hypertension with splenomegaly. Again s een are multiple enlarged upper abdominal and fausto hepatis lymph nodes which are stable. Multiple en larged upper abdominal lymph nodes including celiac, SMA, fausto hepatis, gastrosplenic, retrocrural, periaortic and retroperitoneal Sigmoid diverticulosis. No evidence of acute diverticulitis. Scattered stool in the colon. No evidenc e of high-grade small or large bowel obstruction. Adrenal glands are normal. No hydronephrosis in eit her kidney. Normal caliber abdominal aorta. Disc space narrowing L4-L5 and L5-S1. Lungs bases are well aerated. A few noncalcified subcentimeter nodules in the lung bases and right up per lobe are unchanged. Largest nodule right upper lobe and right lower lobe measuring [address]/CT abdomen pelvis wo con [id number] IMPRESSION: 1. Cirrhotic configuration to the liver with diffuse fatty infiltration unchang ed. 2. Evidence of portal venous hypertension with splenomegaly. 3. Multiple enlarg ed upper abdominal, fausto hepatis, periaortic, and retroperitoneal lymph nodes persistent and not significantly changed from previous. 5. Tiny amount of perihepatic ascites. 6. Mesenteric induration and edema along the mesenteric root and upper and cent ral abdomen is unchanged. 7.Stable noncalcified nodules in the lung bases.
[2020-11-22 10:45] LABS: Tumor Marker Alpha Fetoprotein 6.9 ng/mL (0-8.3)
[2020-11-22 10:56] LABS: Alanine Aminotransferase 40 U/L (0-33); Albumin Level 3.9 g/dL (3.5-5.2); Alkaline Phosphatase 171 IU/L (35-105); Anion Gap 15.2 (5-19); Aspartate Amino Transferase 47 U/L (0-32); Blood Urea Nitrogen 9 mg/dL (8-23); Calcium 9.4 mg/dL (8.5-10.5); Carbon Dioxide 22 mmol/L (22-29); Chloride 100 mmol/L (98-107); Globulin 2.7 g/dL (1.3-4.6); Glomerular Filtration Rate 101.3 mL/min (90-130); Glucose 254 mg/dL (65-115); Lactate Dehydrogenase 193 U/L (135-214); Osmolality Calculated 283 mOsm/kg (285-295); Potassium 4.2 mmol/L (3.5-5.1); Sodium 133 mmol/L (136-145); Total Bilirubin 0.8 mg/dL (0.15-1.2); Total Protein 6.6 g/dL (6.6-8.7)
[2020-11-22] MEDS: iohexol 300 mg/mL 50 mL Btl IV (11:43)
== END 2020-11-22 08:50 | disposition home or self-care (01) ==
PROVIDERS: PCP Family Medicine; Visit Provider Internal Medicine Medical Oncology
DX: R59.0 Localized enlarged lymph nodes (principal); D50.9 Iron deficiency anemia, unspecified; D69.59 Other secondary thrombocytopenia; K74.60 Unspecified cirrhosis of liver; R16.1 Splenomegaly, not elsewhere classified; K76.0 Fatty (change of) liver, not elsewhere classified; K76.6 Portal hypertension; R18.8 Other ascites
CPT/HCPCS: 36415; 74176; 80053; 82105; 83615; 85025; Q9967

== ENCOUNTER 2020-11-28 06:51 | Outpatient (CLI) | payer MEDICARE, MEDICAID, SELFPAY ==
--- NOTE | 2020-11-28 17:12 | ONC FU_ITS ---
Dr. Nicole Patient Follow-Up Note Patient: Phyllis Hall I Unit #: [id number]: 1955 Dicatated By: Rogelio Nicole M.D.Date of Visit:Nov 28, 2020 Onc Med Follow-up/Prog Note Chief Complaint: Lymphadenopathy. History of Present Illness: This 64 year-old woman with abdominal/retroperitoneal lymphadenopathy. She had been seen here initially in January 2016 with iron deficiency anemia. She also had mild thrombocytopenia association with cirrhosis of the liver and splenomegaly. Her anemia corrected with oral iron supplementation. As of her follow-up visit on 02/06/2017 her hemoglobin was normal at 13.1 g. Platelet count was just mildly decreased at 98,000. She was recommended to continue her regular follow-up with Dr. Mcgee. Her CT scans of the abdomen and pelvis at that time revealed the liver to be enlarged and somewhat nodular in appearance. Fatty infiltration was seen. There was evidence of a prior cholecystectomy. There was no biliary distention. Pancreas as well as both kidneys and adrenal glands were normal there was abnormal thickening in the descending colon, findings felt to be consistent with colitis. There was no mention of lymphadenopathy. She had seen by a product technician in [place] for the liver cirrhosis. She had a presumed diagnosis of ARELLANO. She had undergone EGD with banding of esophageal varices in August 2016. During her subsequent follow-up she had started treatment with Xifaxan and nadolol. An MRI of the abdomen from January 2019 reported prominent periportal lymph nodes, the largest measuring 1.4 cm. The liver had a cirrhotic appearance but with no focal mass noted. On 01/14/2020 she was seen in the emergency room with increased abdominal pain and swelling. Her CT abdomen/pelvis again showed cirrhosis of the liver and splenomegaly. There was no visible hepatic mass or cystic structure noted. There was a moderate volume of intraperitoneal ascites as well as diffuse mesenteric edema. Also noted was retroperitoneal pericaval and periaortic, periceliac, fausto hepatis, and perigastric lymphadenopathy. The largest periaortic lymphadenopathy complex measured 3.1 x 2.5 cm. I had seen her in regard to the lymphadenopathy on 02/23/2020. As the lymph nodes were not in a location which was very accessible for biopsy and as she was not overtly symptomatic, I opted to manage her expectantly. Her medical illnesses, in addition to the iron deficiency anemia and liver cirrhosis, include hypertension, type 2 diabetes, hypothyroidism, and obstructive sleep apnea. She is a non-smoker. INTERIM HISTORY: Repeat CT abdomen/pelvis on 05/19/2020 showed cirrhotic configuration to the liver with diffuse fatty infiltration. There was evidence of portal venous hypertension with splenomegaly. Multiple enlarged abdominal, fausto hepatis, and periaortic lymph nodes appeared overall unchanged from the previous study. There was mild mesenteric edema and induration noted in the upper abdomen. With those findings she continued expectant management. Her CT scans of the abdomen/pelvis on 11/22/2020 again showed cirrhotic configuration to the liver with evidence of portal venous hypertension and splenomegaly, overall unchanged. Multiple enlarged upper abdominal, fausto hepatis, periaortic, and retroperitoneal lymph nodes were not significantly changed from previous studies. There is a tiny amount of perihepatic ascites. Mesenteric induration and edema along the mesenteric root and upper pole and central abdomen appeared unchanged. Noncalcified pulmonary nodules at the lung bases appeared stable. She is seen for a follow-up visit. She has been feeling pretty good generally, though her energy does fluctuate. She is able to do light work. Her appetite comes and goes. Her weight is up a few pounds. She does not have fever or night sweats. Her main complaint is that she has been having pretty frequent episodes of abdominal pain and nausea, which at times is severe enough to double her over. Bowel function remains adequate, though her stools have been loose. She has been having a lot of sinus drainage and she does have associated cough. She is sometimes short of breath. She does not complain of chest pain. She has frequent urination. She says she has been aching a lot. She has headache off and on. She sometimes gets lightheaded, which she thinks that may be related to her blood pressure medication. She has numbness in both feet, worse on the right. She complains of having painful knots under both feet. Medications: Advanced Probiotic 1 Capsule Oral daily PRN, Cinnamon 1,500 (500 mg) Tablet Oral daily, glipiZIDE ER 1 Tablet (of 5 mg) Tablet SR 24 HR Oral b.i.d., Januvia 1 (50 mg) Tablet Oral daily, juvatene 1 Tablet daily PRN, Lactulose 15 mL (of 20 g) Pack Oral t.i.d. PRN, Levothyroxine Sodium 1 Tablet (of 25 mcg) Oral daily, MetFORMIN HCl 1 Tablet (of 500 mg) Oral t.i.d., NAC 1 Capsule (of 600 mg) Oral daily, Nadolol 1 Tablet (of 20 mg) Oral daily, Spironolactone 1 Tablet (of 25 mg) Oral daily, Super C-500 1 Tablet Oral daily PRN, Xifaxan 1 Tablet (of 550 mg) Oral b.i.d., Zinc 1 Tablet (of 50 mg) Capsule Oral daily Allergies: Ceftin, Cipro, Codeine Sulfate, Contrast Allergy PreMed Pack, Daypro, Lipitor, Lyrica, Neurontin, NSAIDs, Percocet, Soma, Sulfa Antibiotics, Tylox, and Ultram. Vital Signs: Performed on Nov 28, 2020 17:04 Height - 57.00 in Weight - 181.4 lbs (HIGH) BSA - 1.73 sq.m BMI - 39.25 (HIGH) Temperature - 97.4 F (LOW) Pulse - 66 /min Respiration - 18 /min BP - 121/73 mm(hg) O2 Sat - 96 % Pain - 0 Fatigue - 2 Physical Examination: Constitutional - She looks pretty good generally, Eyes - Sclerae nonicteric. Conjunctivae clear, ENMT - No lesions noted in the oral cavity, Hematologic/Lymphatic - No cervical, clavicular, or axillary adenopathy, Respiratory - Lungs are clear with good air movement bilaterally, Cardiovascular - Heart rhythm is regular. There is a I/ systolic murmur. There is no gallop or rub noted, Abdomen - Mildly distended but soft. There is mild, generalized abdominal tenderness. Liver is not overtly enlarged. I am not able to palpate the spleen. There is no abdominal mass noted and there is no obvious ascites. There is no inguinal adenopathy noted, Extremities - No edema. She appears to be developing Dupuytren's contractures on the plantar aspect of both feet, Neurologic - No focal neurologic deficits noted. Lab/Imaging: Test performed on Nov 22, 2020 09:03 LDH (Total) 193 U/L Sodium 133 mmol/L Potassium 4.2 mmol/L Chloride 100 mmol/L CO2 22 mmol/L Anion Gap 15.2 BUN 9 mg/dL Creatinine 0.6 mg/dL Cr Clearance (Est) 124.1900 mL/min eGFR 101.3 mL/min Glucose 254 mg/dL Osmolality - Calculated 283 mOsm/kg Calcium 9.4 mg/dL Protein, Total 6.6 g/dL Albumin 3.9 g/dL Globulin 2.7 g/dL Bilirubin, Total 0.8 mg/dL ALT (SGPT) 40 U/L AST (SGOT) 47 U/L Alkaline Phosphatase 171 IU/L WBC 6.0 10 3/uL RBC 4.13 10 6/uL HGB 12.1 g/dL HCT 36.6 % MCV 88.6 fl MCH 29.3 pg MCHC 33.1 g/dL RDW 13.2 % Platelet Count 78 10 3/cmm MPV 13.0 fL Neutrophils 4.45 10 3/uL Lymphocytes 0.6 10 3/uL Monocytes 0.6 10 3/uL Eosinophils 0.3 10 3/uL Basophils 0.0 10 3/uL Neutrophil % 74.8 % Lymphocyte % 9.6 % Monocyte % 10.1 % Eosinophil % 4.7 % Basophils % 0.5 % NRBC % 0 % AFP 6.9 ng/mL Problem List: 1. Patient with abdominal and retroperitoneal lymphadenopathy. The cause is uncertain. 2. She has cirrhosis of the liver, presumably due to ARELLANO. She has associated portal hypertension and splenomegaly with mild thrombocytopenia, and she also has some ascites. 3. She has a history of iron deficiency anemia which corrected with oral iron supplementation. 4. Hypertension. 5. Type 2 diabetes. 6. Hypothyroidism. 7. Obstructive sleep apnea. Problems Addressed with this Encounter and Plan: 1. Patient with abdominal and retroperitoneal lymphadenopathy. It appeared to have developed and worsened over period of several years. The cause is uncertain, but the appearance was concerning for either lymphoma or metastatic involvement from other primary malignancy. She has underlying cirrhosis of the liver, but with no clinical evidence for hepatocellular carcinoma. As the lymph nodes were in a location which was not very accessible for biopsy and that she was not overtly symptomatic, I had initially opted for expectant management. During follow-up she has continued to have some fatigue, and recently she has been having intermittent episodes of significant nausea and abdominal pain. The cause of these is uncertain, as her CT scan shows no increase in abdominal or retroperitoneal lymphadenopathy and there are no other progressive findings. There is evidence of mesenteric induration and edema along the mesenteric root and upper and central abdomen, but those findings also are unchanged. I did suggest that she at least try avoiding any milk products. She will continue expectant management for the lymphadenopathy. I will tentatively plan a follow-up visit in 6 months. 2. She has painful knots under both feet and on exam she appears to have developing Dupuytren's contractures. I will arrange for referral to a tagman. Signed By: Rogelio Nicole M.D. <<Signature on File>>
== END 2020-11-28 06:52 | disposition home or self-care (01) ==
LOC: ONCMED 06:52
PROVIDERS: PCP Family Medicine; Visit Provider Internal Medicine Medical Oncology
DX: R59.1 Generalized enlarged lymph nodes (principal); K74.60 Unspecified cirrhosis of liver; K76.6 Portal hypertension; D50.9 Iron deficiency anemia, unspecified; E11.9 Type 2 diabetes mellitus without complications; I10 Essential (primary) hypertension; E03.9 Hypothyroidism, unspecified; G47.33 Obstructive sleep apnea (adult) (pediatric); M72.0 Palmar fascial fibromatosis [Dupuytren]; R53.83 Other fatigue; Z79.899 Other long term (current) drug therapy; Z79.84 Long term (current) use of oral hypoglycemic drugs; Z79.890 Hormone replacement therapy
CPT/HCPCS: 99214

== ENCOUNTER 2020-12-19 11:51 | Outpatient (CLI) | payer MEDICARE, MEDICAID, SELFPAY ==
[2020-12-19 12:22] LABS: Basophils % 0.7 %; Eosinophils # 0.2 10^3/uL (0.0-0.8); Eosinophils % 3.7 %; Hematocrit 36.8 % (37.0-47.0); Hemoglobin 12.4 g/dL (11.5-15.3); Lymphocytes # 0.8 10^3/uL (0.8-4.8); Lymphocytes % 13.3 %; Mean Corpuscular HGB Conc 33.7 g/dL (30.0-36.0); Mean Corpuscular Hemoglobin 29.7 pg (28.0-34.0); Mean Corpuscular Volume 88.2 fl (81-99); Monocytes # 0.5 10^3/uL (0.2-0.9); Neutrophils # 4.18 10^3/uL (1.8-7.7); Neutrophils % 74.1 %; Nucleated Red Blood Cells % 0 %; Platelet Count 88 10^3/cmm (130-400); Red Blood Count 4.17 10^6/uL (4.1-5.3); Red Cell Distribution Width 13.2 % (12.1-15.1); White Blood Count 5.6 10^3/uL (4.0-10.0)
[2020-12-19 12:56] LABS: Anion Gap 15.4 (5-19); Blood Urea Nitrogen 6 mg/dL (8-23); Calcium 9.8 mg/dL (8.5-10.5); Carbon Dioxide 24 mmol/L (22-29); Chloride 102 mmol/L (98-107); Glomerular Filtration Rate 101.3 mL/min (90-130); Glucose 193 mg/dL (65-115); Osmolality Calculated 287 mOsm/kg (285-295); Potassium 4.4 mmol/L (3.5-5.1); Sodium 137 mmol/L (136-145)
[2020-12-19 13:07] LABS: Estmated Average Glucose 217; Hemoglobin A1C 9.2 % (4.0-6.0)
== END 2020-12-19 11:52 | disposition home or self-care (01) ==
PROVIDERS: PCP Family Medicine; Visit Provider Family Medicine
DX: E11.9 Type 2 diabetes mellitus without complications (principal); Z79.899 Other long term (current) drug therapy
CPT/HCPCS: 36415; 80048; 83036; 85025

== ENCOUNTER → 2021-01-04 14:20 | Outpatient (BNVA) | payer MEDICARE, MEDICAID, SELFPAY | PROVIDERS: PCP Family Medicine; Referring Provider Internal Medicine Medical Oncology; Visit Provider Podiatrist Foot & Ankle Surgery | DX: M21.612 Bunion of left foot (principal); M79.672 Pain in left foot | CPT/HCPCS: 73630 ==

== ENCOUNTER 2021-01-04 15:32 | Outpatient (CLI) | payer MEDICARE, MEDICAID, SELFPAY | END 2021-01-04 15:33 | disposition home or self-care (01) | LOC: SPT 15:41 | PROVIDERS: PCP Family Medicine; Visit Provider Podiatrist Foot & Ankle Surgery | DX: Z46.89 Encounter for fitting and adjustment of other specified devices (principal); M72.2 Plantar fascial fibromatosis; E11.9 Type 2 diabetes mellitus without complications | CPT/HCPCS: 97760; L4397 ==

== ENCOUNTER 2021-01-05 10:33 | Outpatient (CLI) | payer MEDICARE, MEDICAID, SELFPAY ==
--- NOTE | 2021-01-05 10:41 | US_ITS ---
WS: [id number] Abdominal ultrasound, limited. History: Evaluate for ascites. Comparison: None. All 4 quadrants are imaged by ultrasound to evaluate for ascites. There is a tiny amount of free flui d in the RIGHT lower quadrant. US/US abdomen lmt fluid [id number] IMPRESSION: Very minimal ascites RIGHT lower quadrant.
== END 2021-01-05 10:34 | disposition home or self-care (01) ==
LOC: US 10:35
PROVIDERS: PCP Family Medicine; Visit Provider Family Medicine
DX: R18.8 Other ascites (principal); K75.81 Nonalcoholic steatohepatitis (NASH)
CPT/HCPCS: 76705

== ENCOUNTER 2021-02-05 10:48 | Outpatient (CLI) | payer MEDICARE, MEDICAID, SELFPAY ==
--- NOTE | 2021-02-05 10:55 | MM_ITS ---
WS: [id number] BILATERAL SCREENING DIGITAL MAMMOGRAM WITH CAD HISTORY: SCREENING COMPARISON: 02/03/2020, 05/27/2017 and 06/09/2018 Bilateral CC and MLO views submitted. Computer aided detection analyzed. Breast composition: There are scattered areas of fibroglandular density. No suspicious masses, microc alcifications or architectural distortion. Benign coarse calcifications in each breast. MM/[place] [id number] IMPRESSION: BI-RADS: 2-Benign FOLLOW UP: 1 Year Follow-up
== END 2021-02-05 10:49 | disposition home or self-care (01) ==
LOC: RADSHAW 10:50
PROVIDERS: PCP Family Medicine; Visit Provider Family Medicine
DX: Z12.31 Encounter for screening mammogram for malignant neoplasm of breast (principal)
CPT/HCPCS: 77067

== ENCOUNTER 2021-05-21 08:39 | Outpatient (CLI) | payer MEDICARE, MEDICAID, SELFPAY ==
--- NOTE | 2021-05-21 08:52 | CT_ITS ---
WS: [id number] CT ABDOMEN AND PELVIS WITH CONTRAST HISTORY: Cirrhosis and lymphadenopathy. TECHNIQUE: Imaging performed of the abdomen and pelvis with IV contrast. Single phase imaging of the abdomen. Coronal and sagittal reformats are submitted. All CT scans at [facility] use at [address] one of these dose optimization techniques: automated exposure control; mA and/or kV adjustment per patient size (includes targeted exams where dose is matched to clinical indication); or iterative re construction. IV CONTRAST: Omnipaque 300; 95 mL IV. Oral contrast: Yes. DLP: 1194.83 mGy.cm COMPARISON: 05/19/2020 and 01/14/2020 Lower thorax: Stable subcentimeter bilateral lower lung field nodules. Heart is normal size. Small hi atal hernia. Liver/biliary system: Liver is enlarged and heterogeneous. LEFT lobe is enlarged with only mild enlar gement the caudate. Surface of the liver is irregular suggestive of cirrhosis. No mass identified wit hin the liver. Portal vein is patent. SMV is patent. Gallbladder: Status post cholecystectomy. Pancreas: Normal size pancreas and pancreatic duct. No adjacent inflammation. Spleen: 16.2 cm in length. Similar to prior examinations. Probably related to portal venous hyperten davon. Adrenal glands: Normal. Right kidney: No change. No hydronephrosis or solid mass. Left kidney: Normal. Aorta: Mild atherosclerosis with no aneurysm. Lymphadenopathy: Numerous lymph nodes are reidentified. Gastrohepatic, celiac axis and fausto hepatis and small diffuse mesenteric lymph nodes are reidentified. These lymph nodes have actually decreased in size since 2019. The mesenteric stranding and edema has also improved. There is still diffuse mist ing throughout the mesentery. Small retroperitoneal lymph nodes decreased in size and number. Free fluid: There is a very small amount of thickening of fluid along the perirenal fascia. No large amount of ascites. GI tract: Stomach is not distended. No small bowel or colon obstruction. There is continued mild muco jessica thickening involving the cecum and ascending colon which was present on the prior studies. No pro gression. Could be related to the patient's cirrhosis and edema. Several small diverticula scattered throughout the distal colon with no acute diverticulitis. The appendix has been removed. Abdominal wall: Unremarkable abdominal wall. No hernia. Pelvis: No free fluid or adenopathy within the pelvis. Prior hysterectomy. Bones: Mild degenerative disc disease at L4-5 and L5-S1. CT/CT abdomen pelvis w con* [id number] IMPRESSION: 1. Continued slow improvement in the mesenteric misting and lymphadenopathy as described above. 2. Changes of cirrhosis and portal venous hypertension. Moderate splenomegaly but stable. 3. Prior cholecystectomy and appendectomy. 4. Stable nodules at the lung bases. 5. Sigmoid diverticulosis without acute diverticulitis. 6. There is wall thickening and edema in the cecum and ascending colon similar to prior studies. May be related to patient's edema and cirrhosis.
[2021-05-21] MEDS: iohexol 300 mg/mL 50 mL Btl PO (09:07)
[2021-05-21] MEDS: iohexol 300 mg/mL 100 mL Btl IV (10:11)
[2021-05-21 10:54] LABS: Blood Urea Nitrogen 7 mg/dL (8-23); Glomerular Filtration Rate 72.4 mL/min (90-130)
== END 2021-05-21 08:40 | disposition home or self-care (01) ==
LOC: RAD 08:40
PROVIDERS: PCP Family Medicine; Visit Provider Internal Medicine Medical Oncology
DX: K74.60 Unspecified cirrhosis of liver (principal); R59.0 Localized enlarged lymph nodes; K76.6 Portal hypertension; R91.8 Other nonspecific abnormal finding of lung field; K57.30 Diverticulosis of large intestine without perforation or abscess without bleeding; R60.0 Localized edema
CPT/HCPCS: 74177; 82565; 84520

== ENCOUNTER 2021-05-27 19:41 | Emergency (ER) | payer MEDICARE, MEDICAID, SELFPAY ==
[2021-05-27 20:17] VITALS: BP 151/82; PULSE 94; RESP 20; TEMP 38.4; O2SAT 95; BMI 37.6
--- NOTE | 2021-05-27 21:59 | XRR_ITS ---
PROCEDURE INFORMATION: Exam: XR Chest Exam date and time: 05/28/2021 1:06 AM Age: 65 years old Clinical indication: Dyspnea and fever; Additional info: Dyspnea, fever TECHNIQUE: Imaging protocol: XR of the chest. Views: 1 view. COMPARISON: CR Chest 1 [place] [id number] 03/26/2015 11:59 AM FINDINGS: Lungs: Unremarkable. No consolidation. Pleural spaces: Unremarkable. No pleural effusion. No pneumothorax. Heart/Mediastinum: Unremarkable. No cardiomegaly. Bones/joints: Moderate thoracic spondylosis. XR/XR chest 1V portable [id number] IMPRESSION: No acute findings.
[2021-05-27 22:54] VITALS: BP 145/78; PULSE 88; RESP 16; TEMP 37.6; O2SAT 95
[2021-05-27 23:03] LABS: Basophils % 0.6 %; Eosinophils # 0.1 10^3/uL (0.0-0.8); Hematocrit 36.6 % (37.0-47.0); Hemoglobin 12.7 g/dL (11.5-15.3); Lymphocytes # 0.6 10^3/uL (0.8-4.8); Mean Corpuscular HGB Conc 34.7 g/dL (30.0-36.0); Mean Corpuscular Hemoglobin 30.7 pg (28.0-34.0); Mean Corpuscular Volume 88.4 fl (81-99); Mean Platelet Volume 12.4 fL (7.4-10.4); Monocytes # 0.9 10^3/uL (0.2-0.9); Monocytes % 12.7 %; Neutrophils # 5.33 10^3/uL (1.8-7.7); Neutrophils % 76.3 %; Nucleated Red Blood Cells % 0 %; Platelet Count 73 10^3/cmm (130-400); Red Blood Count 4.14 10^6/uL (4.1-5.3); Red Cell Distribution Width 13.7 % (12.1-15.1)
[2021-05-27 23:27] LABS: Anion Gap 16.5 (5-19); Blood Urea Nitrogen 10 mg/dL (8-23); Calcium 10.5 mg/dL (8.5-10.5); Carbon Dioxide 20 mmol/L (22-29); Chloride 100 mmol/L (98-107); Glomerular Filtration Rate 84.5 mL/min (90-130); Glucose 100 mg/dL (65-115); Osmolality Calculated 273 mOsm/kg (285-295); Potassium 4.5 mmol/L (3.5-5.1); Sodium 132 mmol/L (136-145)
[2021-05-28 00:44] LABS: Adenovirus Not Detected (NOT DETECT); Chlamydia Pneumoniae Not Detected (NOT DETECT); Coronavirus 229E,HKU1,NL63,OC4 Not Detected (NOT DETECT); Human Metapneumovirus Not Detected (NOT DETECT); Human Rhinovirus/Enterovirus Not Detected (NOT DETECT); Influenza A Detected (NOT DETECT); Influenza A H1 Not Detected (NOT DETECT); Influenza A H1-2009 Not Detected (NOT DETECT); Influenza A H3 Detected (NOT DETECT); Influenza B Not Detected (NOT DETECT); Mycoplasma Pneumoniae Not Detected (NOT DETECT); Parainfluenza Virus Type 1 Not Detected (NOT DETECT); Parainfluenza Virus Type 2 Not Detected (NOT DETECT); Parainfluenza Virus Type 3 Not Detected (NOT DETECT); Parainfluenza Virus Type 4 Not Detected (NOT DETECT); Respiratory Syncytial Virus A Not Detected (NOT DETECT); Respiratory Syncytial Virus B Not Detected (NOT DETECT); SARS-COV-2 Not Detected (NOT DETECT)
--- NOTE | 2021-05-28 00:51 | W.ED.FEVER ---
Documented by User: LOUISA Henley 05/28/21 01:13 HPI - Fever General: Chief Complaint: Fever Stated Complaint: Fever/SOB Time Seen by Provider: 05/28/21 00:51 History of Present Illness: 65-year-old female comes in today with fever starting last night. Patient has been ill with cough and fever for the last 24 hours. Patient appears mildly unwell. Patient appears nontoxic. Patient has a history of diabetes mellitus type 2, and hypertension. Patient does not take her flu shot and has not had a COVID vaccine. Patient responds appropriately to questions. MD elicited complaint: fever Pertinent past history: diabetes Onset (ago): hour(s) Associated symptoms: Deny chest pain or vomiting Review of Systems General: Reports: 10 or more systems reviewed and unremarkable except in HPI and below Const: Reports: fever(s) and malaise Card: Denies: chest pain Resp: Reports: non-productive cough GI: Denies: vomiting Musc: Reports: muscle cramps PFS ED PFSH: Family History Denies family history of Anesthesia complication Bleeding disorder Physical Exam Const: COMMON NORMALS: alert HENMT: COMMON NORMALS: normocephalic HEAD & SCALP: normocephalic NOSE: No nasal discharge present MOUTH: Normal oral and palatal mucosa present Neck/C-Spine: COMMON NORMALS: full ROM Resp: COMMON NORMALS: normal respiratory effort and clear to auscultation bilaterally AUSCULTATION: clear to auscultation bilaterally Cardio: COMMON NORMALS: regular rate and regular rhythm RATE: regular rate RHYTHM: regular rhythm GI: COMMON NORMALS: Soft to palpation AUSCULTATION: Yes normoactive bowel sounds PALPATION: Yes Soft to palpation and No Tenderness to palpation present (GI) Extremity: COMMON NORMALS: no pedal edema Neuro: SENSORIUM/ORIENTATION: Yes alert Skin: COMMON NORMALS: no rashes or lesions noted GENERAL SKIN EXAM: no rashes or lesions noted Course Vital Signs: Vital signs: Vital Signs Temperature 99.7 F H 05/27/21 22:54 Pulse Rate 88 05/28/21 01:12 Respiratory Rate 16 05/28/21 01:12 Blood Pressure 145/78 05/27/21 22:54 Pulse Oximetry 95 05/28/21 01:12 MDM - Fever Medical Decision Making Patient presents today with cough and fever for last 24 hours. On exam patient appears mildly unwell but not toxic. Lungs are clear to auscultation. Abdomen soft nontender. Vital signs note a elevation in temperature of 101. Differential diagnosis includes pneumonia, influenza, COVID-19, other viral syndrome. COVID-19 test was negative. Influenza was positive for type A. Chest x-ray was normal. CBC and CMP were unremarkable. Encourage patient drink plenty of fluids and continue routine medications as directed. Follow-up with primary care as needed. Return to ER for worsening symptoms. Patient and family member both reported understanding. Lab Data : 05/27/21 22:51 05/27/21 22:51 Laboratory Results WBC 7.0 10^3/uL (4.0-10.0) 05/27/21 22:51 RBC 4.14 10^6/uL (4.1-5.3) 05/27/21 22:51 Hgb 12.7 g/dL (11.5-15.3) 05/27/21 22:51 Hct 36.6 % (37.0-47.0) L 05/27/21 22:51 MCV 88.4 fl (81-99) 05/27/21 22: MCH 30.7 pg (28.0-34.0) 05/27/21 22: MCHC 34.7 g/dL (30.0-36.0) 05/27/21 22: RDW 13.7 % (12.1-15.1) 05/27/21 22:51 Plt Count 73 10^3/cmm (130-400) L 05/27/21:51 MPV 12.4 fL (7.4-10.4) H 05/27/21 22:51 Neut % (Auto) 76.3 % 05/27/21 22: Lymph % (Auto) 9.0 % 05/27/21 22:51 Carlisle % (Auto) 12.7 % 05/27/21 22:51 Eos % (Auto) 1.0 % 05/27/21 22:51 Baso % (Auto) 0.6 % 05/27/21 22:51 Neut # (Auto) 5.33 10^3/uL (1.8-7.7) 05/27/21 22:51 Lymph # (Auto) 0.6 10^3/uL (0.8-4.8) L 05/27/21 22:51 Carlisle # (Auto) 0.9 10^3/uL (0.2-0.9) 05/27/21 22:51 Eos # (Auto) 0.1 10^3/uL (0.0-0.8) 05/27/21 22:51 Baso # (Auto) 0.0 10^3/uL (0.0-0.1) 05/27/21 22:51 Nucleated RBC % (auto) 0 % 05/27/21 22:51 Nucleated RBCs # 0.0 /100WBC 05/27/21 22:51 Sodium 132 mmol/L (136-145) L 05/27/21 22:51 Potassium 4.5 mmol/L (3.5-5.1) 05/27/21 22:51 Chloride 100 mmol/L (98-107) 05/27/21 22:51 Carbon Dioxide 20 mmol/L (22-29) L 05/27/21 22:51 Anion Gap 16.5 (5-19) 05/27/21 22:51 BUN 10 mg/dL (8-23) 05/27/21 22:51 Creatinine 0.7 mg/dL (0.5-0.9) 05/27/21 22:51 GFR Calculation 84.5 mL/min (90-130) L 05/27/21 22:51 Glucose 100 mg/dL (65-115) 05/27/21 22:51 Calculated Osmolality 273 mOsm/kg (285-295) L 05/27/21 22:51 Calcium 10.5 mg/dL (8.5-10.5) 05/27/21 22:51 Nasal Influ A H1 2009 PCR Not detected (NOT DETECT) 05/28/21 00:59 Coronavirus 229E (PCR) Not detected (NOT DETECT) 05/27/21 22:51 Influenza A (H1) PCR Not detected (NOT DETECT) 05/28/21 00:59 Influenza A (H3) PCR Detected (NOT DETECT) A 05/28/21 00:59 Influenza Type A (PCR) Detected (NOT DETECT) A 05/28/21 00:59 Influenza Type B (PCR) Not detected (NOT DETECT) 05/28/21 00:59 SARS-CoV-2 (PCR) Not detected (NOT DETECT) 05/27/21 22:51 Discharge Plan Discharge Patient Disposition: Home Clinical Impression: Influenza Condition: Stable Prescriptions: No Action spironolactone 50 mg tablet 50 mg PO BID 0RF (DME) Night Splint to the left See Rx Instructions .Route .MEDSUPPLY Qty: 1 0RF Rx Instructions: As directed metformin 500 mg tablet See Rx Instructions .ROUTE .COMPLEX 0RF Rx Instructions: 500mg po qam and 1000mg po bedtime glipizide 5 mg tablet extended release 24hr 10 mg PO DAILY 0RF levothyroxine 25 mcg tablet 25 mcg PO DAILY 0RF nadolol 20 mg tablet 20 mg PO DAILY 0RF lactulose 10 gram/15 mL solution See Rx Instructions .ROUTE .COMPLEX 0RF Rx Instructions: 2 tablespoons po prn Januvia 50 mg tablet 50 mg PO DAILY 0RF Xifaxan 550 mg tablet 550 mg PO BID 0RF Probiotic 1 cap PO PRN 0RF Blm 1 cap PO DAILY PRN (Reason: unknown) 0RF Digest And Cleanse See Rx Instructions .ROUTE .COMPLEX 0RF Rx Instructions: prn Juvatone 1 cap PO DAILY PRN (Reason: unknown) 0RF fenugreek seed extract 1 cap PO DAILY PRN (Reason: unknown) 0RF ondansetron 4 mg tablet,disintegrating 4 mg PO Q6H PRN (Reason: nausea and vomiting) Qty: 14 0RF Discharge Orders: Discharge ED (Routine); Ordered 05/28/21 Ordered By: Feliberto Slater Referrals: Kami Mcgee MD [Primary Care Provider] - Discharge Diet: Usual diet Discharge Activity: Increase activity as tolerated Patient Instructions: Influenza (ED) Activity Restrictions/Additional Instructions: Drink plenty of fluids. Use [id number] Delsym to help with cough. Use acetaminophen and ibuprofen for pain and fever. Make sure to drink plenty of water and fluids. Get plenty of rest. Follow-up with primary care as needed. Most often the flu will run its course within 5 to 7 days. Return to emergency department for worsening symptoms or new concerns. Coding Level of Care Code ED Boiler Tenders Supervisor for Chg Fwd Exam Comprehensive Documented by User: Michael Benedict DO [place] 05/28/21 01:29 HPI - Fever General: Chief Complaint: Fever Stated Complaint: Fever/SOB Time Seen by Provider: 05/28/21 00:51 PFSH ED PFSH: Family History Denies family history of Anesthesia complication Bleeding disorder Course Vital Signs: Vital signs: Vital Signs Temperature 99.7 F H 05/27/21 22:54 Pulse Rate 88 05/28/21 01:12 Respiratory Rate 16 05/28/21 01:12 Blood Pressure 145/78 05/27/21 22:54 Pulse Oximetry 95 05/28/21 01:12 MDM - Fever Medical Decision Making Patient presents today with cough and fever for last 24 hours. On exam patient appears mildly unwell but not toxic. Lungs are clear to auscultation. Abdomen soft nontender. Vital signs note a elevation in temperature of 101. Differential diagnosis includes pneumonia, influenza, COVID-19, other viral syndrome. COVID-19 test was negative. Influenza was positive for type A. Chest x-ray was normal. CBC and CMP were unremarkable. Encourage patient drink plenty of fluids and continue routine medications as directed. Follow-up with primary care as needed. Return to ER for worsening symptoms. Patient and family member both reported understanding. This patient was originally seen by LOUISA Saxena.? I agree with his history, evaluation, and treatment. Lab Data : 05/27/21 22:51 05/27/21 22:51 Laboratory Results WBC 7.0 10^3/uL (4.0-10.0) 05/27/21 22:51 RBC 4.14 10^6/uL (4.1-5.3) 05/27/21 22:51 Hgb 12.7 g/dL (11.5-15.3) 05/27/21 22:51 Hct 36.6 % (37.0-47.0) L 05/27/21 22:51 MCV 88.4 fl (81-99) 05/27/21 22:51 MCH 30.7 pg (28.0-34.0) 05/27/21 22:51 MCHC 34.7 g/dL (30.0-36.0) 05/27/21 22:51 RDW 13.7 % (12.1-15.1) 05/27/21 22:51 Plt Count 73 10^3/cmm (130-400) L 05/27/21 22:51 MPV 12.4 fL (7.4-10.4) H 05/27/21 22:51 Neut % (Auto) 76.3 % 05/27/21 22:51 Lymph % (Auto) 9.0 % 05/27/21 22:51 Carlisle % (Auto) 12.7 % 05/27/21 22:51 Eos % (Auto) 1.0 % 05/27/21 22:51 Baso % (Auto) 0.6 % 05/27/21 22:51 Neut # (Auto) 5.33 10^3/uL (1.8-7.7) 05/27/21 22:51 Lymph # (Auto) 0.6 10^3/uL (0.8-4.8) L 05/27/21 22:51 Carlisle # (Auto) 0.9 10^3/uL (0.2-0.9) 05/27/21 22:51 Eos # (Auto) 0.1 10^3/uL (0.0-0.8) 05/27/21 22:51 Baso # (Auto) 0.0 10^3/uL (0.0-0.1) 05/27/21 22:51 Nucleated RBC % (auto) 0 % 05/27/21 22: Nucleated RBCs # 0.0 /100WBC 05/27/21 22:51 Sodium 132 mmol/L (136-145) L 05/27/21 22:51 Potassium 4.5 mmol/L (3.5-5.1) 05/27/21 22:51 Chloride 100 mmol/L (98-107) 05/27/21 22:51 Carbon Dioxide 20 mmol/L (22-29) L 05/27/21 22:51 Anion Gap 16.5 (5-19) 05/27/21 22:51 BUN 10 mg/dL (8-23) 05/27/21 22:51 Creatinine 0.7 mg/dL (0.5-0.9) 05/27/21 22:51 GFR Calculation 84.5 mL/min (90-130) L 05/27/21 22:51 Glucose 100 mg/dL (65-115) 05/27/21 22:51 Calculated Osmolality 273 mOsm/kg (285-295) L 05/27/21 22:51 Calcium 10.5 mg/dL (8.5-10.5) 05/27/21 22:51 Nasal Influ A H1 2009 PCR Not detected (NOT DETECT) 05/28/21 00:59 Coronavirus 229E (PCR) Not detected (NOT DETECT) 05/27/21 22:51 Influenza A (H1) PCR Not detected (NOT DETECT) 05/28/21 00:59 Influenza A (H3) PCR Detected (NOT DETECT) A 05/28/21 00:59 Influenza Type A (PCR) Detected (NOT DETECT) A 05/28/21 00:59 Influenza Type B (PCR) Not detected (NOT DETECT) 05/28/21 00:59 SARS-CoV-2 (PCR) Not detected (NOT DETECT) 05/27/21 22:51 Discharge Plan Discharge Patient Disposition: Home Clinical Impression: Influenza Condition: Stable Prescriptions: No Action spironolactone 50 mg tablet 50 mg PO BID 0RF (DME) Night Splint to the left See Rx Instructions .Route .MEDSUPPLY Qty: 1 0RF Rx Instructions: As directed metformin 500 mg tablet See Rx Instructions .ROUTE .COMPLEX 0RF Rx Instructions: 500mg po qam and 1000mg po bedtime glipizide 5 mg tablet extended release 24hr 10 mg PO DAILY 0RF levothyroxine 25 mcg tablet 25 mcg PO DAILY 0RF nadolol 20 mg tablet 20 mg PO DAILY 0RF lactulose 10 gram/15 mL solution See Rx Instructions .ROUTE .COMPLEX 0RF Rx Instructions: 2 tablespoons po prn Januvia 50 mg tablet 50 mg PO DAILY 0RF Xifaxan 550 mg tablet 550 mg PO BID 0RF Probiotic 1 cap PO PRN 0RF Blm 1 cap PO DAILY PRN (Reason: unknown) 0RF Digest And Cleanse See Rx Instructions .ROUTE .COMPLEX 0RF Rx Instructions: prn Juvatone 1 cap PO DAILY PRN (Reason: unknown) 0RF fenugreek seed extract 1 cap PO DAILY PRN (Reason: unknown) 0RF ondansetron 4 mg tablet,disintegrating 4 mg PO Q6H PRN (Reason: nausea and vomiting) Qty: 14 0RF Discharge Orders: Discharge ED (Routine); Ordered 05/28/21 Ordered By: Feliberto Slater Referrals: Kami Mcgee MD [Primary Care Provider] - Discharge Diet: Usual diet Discharge Activity: Increase activity as tolerated Patient Instructions: Influenza (ED) Activity Restrictions/Additional Instructions: Drink plenty of fluids. Use [id number] Delsym to help with cough. Use acetaminophen and ibuprofen for pain and fever. Make sure to drink plenty of water and fluids. Get plenty of rest. Follow-up with primary care as needed. Most often the flu will run its course within 5 to 7 days. Return to emergency department for worsening symptoms or new concerns. Coding Level of Care Code ED Boiler Tenders Supervisor for Roberta Fwjamel Exam Comprehensive
[2021-05-28 01:00] LABS: Influenza A Detected (NOT DETECT); Influenza A H1 Not Detected (NOT DETECT); Influenza A H1-2009 Not Detected (NOT DETECT); Influenza A H3 Detected (NOT DETECT); Influenza B Not Detected (NOT DETECT); Results from Genmark
[2021-05-28 01:12] VITALS: PULSE 88; RESP 16; O2SAT 95
== END 2021-05-28 01:43 | disposition home or self-care (01) ==
PROVIDERS: Emergency Medicine; Emergency Provider Nurse Practitioner Family; PCP Family Medicine
DX: J10.1 Influenza due to other identified influenza virus with other respiratory manifestations (principal); E11.21 Type 2 diabetes mellitus with diabetic nephropathy; I10 Essential (primary) hypertension; Z79.84 Long term (current) use of oral hypoglycemic drugs; Z28.21 Immunization not carried out because of patient refusal
CPT/HCPCS: 71045; 80048; 85025; 87631; 87635; 99283

== ENCOUNTER 2021-06-19 10:11 | Outpatient (CLI) | payer MEDICARE, MEDICAID, SELFPAY ==
[2021-06-19 11:31] LABS: Basophils % 0.3 %; Eosinophils # 0.2 10^3/uL (0.0-0.8); Eosinophils % 2.8 %; Hematocrit 36.2 % (37.0-47.0); Lymphocytes # 0.8 10^3/uL (0.8-4.8); Lymphocytes % 13.2 %; Mean Corpuscular HGB Conc 33.1 g/dL (30.0-36.0); Mean Corpuscular Hemoglobin 30.2 pg (28.0-34.0); Mean Platelet Volume 12.3 fL (7.4-10.4); Monocytes # 0.5 10^3/uL (0.2-0.9); Monocytes % 8.3 %; Neutrophils # 4.53 10^3/uL (1.8-7.7); Neutrophils % 75.1 %; Nucleated Red Blood Cells % 0 %; Platelet Count 80 10^3/cmm (130-400); Red Blood Count 3.98 10^6/uL (4.1-5.3); Red Cell Distribution Width 13.5 % (12.1-15.1)
[2021-06-19 11:41] LABS: Erythrocyte Sedimentation Rate 16 mm/hr (0-15)
[2021-06-19 11:43] LABS: Alanine Aminotransferase 31 U/L (0-33); Albumin Level 4.2 g/dL (3.5-5.2); Alkaline Phosphatase 99 IU/L (35-105); Anion Gap 14.4 (5-19); Aspartate Amino Transferase 30 U/L (0-32); Blood Urea Nitrogen 7 mg/dL (8-23); Calcium 10.2 mg/dL (8.5-10.5); Carbon Dioxide 22 mmol/L (22-29); Chloride 104 mmol/L (98-107); Globulin 2.4 g/dL (1.3-4.6); Glomerular Filtration Rate 84.5 mL/min (90-130); Glucose 132 mg/dL (65-115); Lactate Dehydrogenase 186 U/L (135-214); Osmolality Calculated 282 mOsm/kg (285-295); Potassium 4.4 mmol/L (3.5-5.1); Sodium 136 mmol/L (136-145); Total Bilirubin 0.9 mg/dL (0.15-1.2); Total Protein 6.6 g/dL (6.6-8.7)
--- NOTE | 2021-06-19 15:31 | ONC FU_ITS ---
Nora Cota Progress Note Patient: Phyllis Hall I Unit #: [id number]: 1955 Dicatated By: Nora Cota N.P.Date of Visit:Jun 19, 2021 Onc MED Follow-up/Prog Note Chief Complaint: Lymphadenopathy. History of Present Illness: This 64 year-old woman with abdominal/retroperitoneal lymphadenopathy. She had been seen here initially in January 2016 with iron deficiency anemia. She also had mild thrombocytopenia association with cirrhosis of the liver and splenomegaly. Her anemia corrected with oral iron supplementation. As of her follow-up visit on 02/06/2017 her hemoglobin was normal at 13.1 g. Platelet count was just mildly decreased at 98,000. She was recommended to continue her regular follow-up with Dr. Mcgee. Her CT scans of the abdomen and pelvis at that time revealed the liver to be enlarged and somewhat nodular in appearance. Fatty infiltration was seen. There was evidence of a prior cholecystectomy. There was no biliary distention. Pancreas as well as both kidneys and adrenal glands were normal there was abnormal thickening in the descending colon, findings felt to be consistent with colitis. There was no mention of lymphadenopathy. She had seen by a neuropsychology division chief in [place] for the liver cirrhosis. She had a presumed diagnosis of ARELLANO. She had undergone EGD with banding of esophageal varices in August 2016. During her subsequent follow-up she had started treatment with Xifaxan and nadolol. An MRI of the abdomen from January 2019 reported prominent periportal lymph nodes, the largest measuring 1.4 cm. The liver had a cirrhotic appearance but with no focal mass noted. On 01/14/2020 she was seen in the emergency room with increased abdominal pain and swelling. Her CT abdomen/pelvis again showed cirrhosis of the liver and splenomegaly. There was no visible hepatic mass or cystic structure noted. There was a moderate volume of intraperitoneal ascites as well as diffuse mesenteric edema. Also noted was retroperitoneal pericaval and periaortic, periceliac, fausto hepatis, and perigastric lymphadenopathy. The largest periaortic lymphadenopathy complex measured 3.1 x 2.5 cm. I had seen her in regard to the lymphadenopathy on 02/23/2020. As the lymph nodes were not in a location which was very accessible for biopsy and as she was not overtly symptomatic, I opted to manage her expectantly. Her medical illnesses, in addition to the iron deficiency anemia and liver cirrhosis, include hypertension, type 2 diabetes, hypothyroidism, and obstructive sleep apnea. She is a non-smoker. INTERIM HISTORY: Repeat CT abdomen/pelvis on 05/19/2020 showed cirrhotic configuration to the liver with diffuse fatty infiltration. There was evidence of portal venous hypertension with splenomegaly. Multiple enlarged abdominal, fausto hepatis, and periaortic lymph nodes appeared overall unchanged from the previous study. There was mild mesenteric edema and induration noted in the upper abdomen. With those findings she continued expectant management. Her CT scans of the abdomen/pelvis on 11/22/2020 again showed cirrhotic configuration to the liver with evidence of portal venous hypertension and splenomegaly, overall unchanged. Multiple enlarged upper abdominal, fausto hepatis, periaortic, and retroperitoneal lymph nodes were not significantly changed from previous studies. There is a tiny amount of perihepatic ascites. Mesenteric induration and edema along the mesenteric root and upper pole and central abdomen appeared unchanged. Noncalcified pulmonary nodules at the lung bases appeared stable. Patient presents today for follow-up. She states she has been feeling pretty good. She continues to have some fatigue. She has been working a part-time job at a [employer] and has really enjoyed it. 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 Her appetite has been good. She denies fever, chills, night sweats. No sinus drainage or mouth sores. No shortness of breath, cough, chest pain. No GI or problems. No joint or bone pain. No headaches or dizziness. Review Of Symptoms: See above. Past Medical History: Hyperlipidemia Hypertension Hypothyroidism ARELLANO with cirrhosis and portal hypertension Obstructive sleep apnea Type II diabetes Past Surgical History: Back surgery x 5 Caesarean section x 3 EGD in 2019 Colonoscopy in 2019 EGD with banding of esophageal varices in 2017 Foot surgery in 2007 Cholecystectomy in 2006 Hysterectomy/bilateral salpingectomy-oophorectomy in 2001 Carpal tunnel release bilaterally in 1987 Appendectomy in 1972 Allergies: Ceftin, Cipro, Codeine Sulfate, Contrast Allergy PreMed Pack, Daypro, Lipitor, Lyrica, Neurontin, NSAIDs, Percocet, Soma, Sulfa Antibiotics, Tylox, and Ultram. Medications: Advanced Probiotic 1 Capsule Oral daily PRN Cinnamon 1,500 (500 mg) Tablet Oral daily glipiZIDE ER 1 Tablet (of 5 mg) Tablet SR 24 HR Oral b.i.d. Januvia 1 (50 mg) Tablet Oral daily juvatene 1 Tablet daily PRN Lactulose 15 mL (of 20 g) Pack Oral t.i.d. PRN Levothyroxine Sodium 1 Tablet (of 25 mcg) Oral daily MetFORMIN HCl 1 Tablet (of 500 mg) Oral t.i.d. NAC 1 Capsule (of 600 mg) Oral daily Nadolol 1 Tablet (of 20 mg) Oral daily Spironolactone 1 Tablet (of 25 mg) Oral daily Super C-500 1 Tablet Oral daily PRN Xifaxan 1 Tablet (of 550 mg) Oral b.i.d. Zinc 1 Tablet (of 50 mg) Capsule Oral daily Family History: Ms. Hall's mother at age 78: heart attack. Ms. Hall's father is alive: hypertension. Ms. Hall has 1 brother who is alive: hypertension. She has 2 sisters: 2 alive. Ms. Hall's first sister's hypertension. Another sister's hypertension. Father had diabetes, strokes, and heart attack. He at age 87. Mother of heart attack at age 78. A brother and a sister also have diabetes. Maternal grandmother had cancer, type unknown to the patient. Social History: Ms. Hall is and she is a disabled. Ms. Hall has never smoked. She has no history of drinking. She is disabled. She is a non-smoker. She does not drink alcohol. Physical Examination: Performed on Jun 19, 2021 12:39: Height - 57.00 in, Weight - 182.4 lbs (HIGH), BSA - 1.73 sq.m, BMI - 39.47 (HIGH), Temperature - 97.2 F (LOW), Pulse - 77 /min, Respiration - 18 /min, BP - 131/76 mm(hg), O2 Sat - 98 %, Pain - 0, and Fatigue - 6. Performance Status: 1 - No physically strenuous activity, but ambulatory and able to carry out light or sedentary work (e.g. office work, light house work). (ECOG) Constitutional Alert, cooperative, oriented. Mood and affect appropriate. Appears close to chronological age. Well nourished. Well developed. Head Normocephalic; no scars. Respiratory Lungs are clear to auscultation without rhonchi or wheezing. Cardiovascular Regular rate and rhythm of heart without murmurs, gallops or rubs. Abdomen Non-tender, non-distended, no masses, ascites or hepatosplenomegaly. Good bowel sounds. No guarding or rebound tenderness. Extremities No visible deformities, no cyanosis, clubbing or edema. Pulses 3+ and equal bilaterally. Musculoskeletal No tenderness or swelling, normal range of motion without obvious weakness. Psychiatric Alert and oriented times three. Coherent speech. Verbalizes understanding of our discussions today. Laboratory: Test performed on Jun 19, 2021 11:10 LDH (Total) 186 U/L Sodium 136 mmol/L Potassium 4.4 mmol/L Chloride 104 mmol/L CO2 22 mmol/L Anion Gap 14.4 BUN 7 mg/dL Creatinine 0.7 mg/dL Cr Clearance (Est) 107.44 mL/min eGFR 84.5 mL/min Glucose 132 mg/dL Osmolality - Calculated 282 mOsm/kg Calcium 10.2 mg/dL Protein, Total 6.6 g/dL Albumin 4.2 g/dL Globulin 2.4 g/dL Bilirubin, Total 0.9 mg/dL ALT (SGPT) 31 U/L AST (SGOT) 30 U/L Alkaline Phosphatase 99 IU/L ESR (Sed Rate) 16 mm/hr WBC 6.0 10 3/uL RBC 3.98 10 6/uL HGB 12.0 g/dL HCT 36.2 % MCV 91.0 fl MCH 30.2 pg MCHC 33.1 g/dL RDW 13.5 % Platelet Count 80 10 3/cmm MPV 12.3 fL Neutrophils 4.53 10 3/uL Lymphocytes 0.8 10 3/uL Monocytes 0.5 10 3/uL Eosinophils 0.2 10 3/uL Basophils 0.0 10 3/uL Neutrophil % 75.1 % Lymphocyte % 13.2 % Monocyte % 8.3 % Eosinophil % 2.8 % Basophils % 0.3 % NRBC % 0 % Impression: 1. Patient with abdominal and retroperitoneal lymphadenopathy. The cause is uncertain. 2. She has cirrhosis of the liver, presumably due to ARELLANO. She has associated portal hypertension and splenomegaly with mild thrombocytopenia, and she also has some ascites. 3. She has a history of iron deficiency anemia which corrected with oral iron supplementation. 4. Hypertension. 5. Type 2 diabetes. 6. Hypothyroidism. 7. Obstructive sleep apnea. Plan: 1. Patient with abdominal and retroperitoneal lymphadenopathy. It appeared to have developed and worsened over period of several years. The cause is uncertain, but the appearance was concerning for either lymphoma or metastatic involvement from other primary malignancy. She has underlying cirrhosis of the liver, but with no clinical evidence for hepatocellular carcinoma. As the lymph nodes were in a location which was not very accessible for biopsy and that she was not overtly symptomatic, I had initially opted for expectant management. Patient appears to be doing. She did not complain of any nausea or recurring abdominal pain. We discussed her CT scan that was performed on 05/21/2021. It indicated continued slow improvement in the mesenteric misting and lymphadenopathy as described above. Changes of cirrhosis and portal venous hypertension. Moderate splenomegaly but stable. Stable nodules at the lung bases. Sigmoid diverticulosis without acute diverticulitis. Wall thickening and edema in the cecum and ascending colon similar to prior studies. May be related to the patient's edema and cirrhosis Patient was glad to hear about her CT scan with a mild improvement. She will follow-up in [address] PET scan. 2. She has painful knots under both feet and she is being followed by commercial lines sales executive. 3. Patient has liver cirrhosis due to ARELLANO and is being followed by customer leader in [place]. Signed By: Nora Cota N.P. <<Signature on File>>
== END 2021-06-19 10:12 | disposition home or self-care (01) ==
PROVIDERS: PCP Family Medicine; Visit Provider Nurse Practitioner Family
DX: R59.0 Localized enlarged lymph nodes (principal); K75.81 Nonalcoholic steatohepatitis (NASH); K74.60 Unspecified cirrhosis of liver; K76.6 Portal hypertension; R16.1 Splenomegaly, not elsewhere classified; K57.30 Diverticulosis of large intestine without perforation or abscess without bleeding
CPT/HCPCS: 36415; 80053; 83615; 85025; 85651; 99214

== ENCOUNTER 2021-06-26 09:39 | Outpatient (CLI) | payer MEDICARE, MEDICAID, SELFPAY ==
[2021-06-26 10:50] LABS: Basophils % 0.4 %; Eosinophils # 0.2 10^3/uL (0.0-0.8); Eosinophils % 4.1 %; Hematocrit 35.6 % (37.0-47.0); Hemoglobin 11.6 g/dL (11.5-15.3); Lymphocytes # 0.7 10^3/uL (0.8-4.8); Lymphocytes % 12.7 %; Mean Corpuscular HGB Conc 32.6 g/dL (30.0-36.0); Mean Corpuscular Hemoglobin 30.5 pg (28.0-34.0); Mean Corpuscular Volume 93.7 fl (81-99); Mean Platelet Volume 12.2 fL (7.4-10.4); Monocytes # 0.5 10^3/uL (0.2-0.9); Monocytes % 8.6 %; Neutrophils # 4.14 10^3/uL (1.8-7.7); Neutrophils % 73.7 %; Nucleated Red Blood Cells % 0 %; Platelet Count 72 10^3/cmm (130-400); Red Cell Distribution Width 13.8 % (12.1-15.1); White Blood Count 5.6 10^3/uL (4.0-10.0)
[2021-06-26 11:21] LABS: Alanine Aminotransferase 32 U/L (0-33); Albumin Level 3.8 g/dL (3.5-5.2); Alkaline Phosphatase 135 IU/L (35-105); Anion Gap 16.4 (5-19); Aspartate Amino Transferase 39 U/L (0-32); Blood Urea Nitrogen 12 mg/dL (8-23); Calcium 9.4 mg/dL (8.5-10.5); Carbon Dioxide 20 mmol/L (22-29); Chloride 105 mmol/L (98-107); Chol HDL Ratio 3.77 mg/dL (0.0-4.40); Cholesterol 215 mg/dL (0-200); Globulin 3.3 g/dL (1.3-4.6); Glomerular Filtration Rate 72.4 mL/min (90-130); Glucose 181 mg/dL (65-115); HDL Cholesterol 57 mg/dL (60-100); LDL Cholesterol Calculated 140 mg/dL (50-129); LDL HDL Ratio 2.46 RATIO (0.00-3.22); Osmolality Calculated 288 mOsm/kg (285-295); Potassium 4.4 mmol/L (3.5-5.1); Sodium 137 mmol/L (136-145); Thyroid Stimulating Hormone 1.97 uIU/mL (0.27-4.20); Total Bilirubin 0.6 mg/dL (0.15-1.2); Total Protein 7.1 g/dL (6.6-8.7); Triglycerides 90 mg/dL (0-150)
[2021-06-26 12:09] LABS: Estmated Average Glucose 169; Hemoglobin A1C 7.5 % (4.0-6.0)
== END 2021-06-26 09:40 | disposition home or self-care (01) ==
LOC: LAB 09:43
PROVIDERS: PCP Family Medicine; Visit Provider Family Medicine
DX: E11.9 Type 2 diabetes mellitus without complications (principal); K74.60 Unspecified cirrhosis of liver; E78.00 Pure hypercholesterolemia, unspecified; E03.9 Hypothyroidism, unspecified
CPT/HCPCS: 36415; 80053; 80061; 83036; 84443; 85025

== ENCOUNTER 2021-07-02 09:35 | Emergency (ER) | payer MEDICARE, MEDICAID, SELFPAY ==
[2021-07-02] VITALS (7 sets, daily range): BP systolic 153–177; BP diastolic 70–82; PULSE 66–90; RESP 16–21; TEMP 36.1–36.6; O2SAT 92–95; BMI 37.6
--- NOTE | 2021-07-02 09:54 | W.ED.ABDPA2 ---
Documented by User: ADI Rubi 07/02/21 14:50 HPI - Abdominal Pain General: Chief Complaint: Abdominal Pain Stated Complaint: N/V, ABD PAIN Time Seen by Provider: 07/02/21 09:49 Source: patient Mode of arrival: ambulatory Limitations: no limitations History of Present Illness: Patient is a 65-year-old female presents to ED today with a complaint of diffuse abdominal pain, diarrhea, and vomiting. Patient tells me she began feeling unwell approximately 48 hours ago and states she was up all night with nonbloody diarrhea. Patient states she would have approximately 8 diarrhea stools in a 24-hour period. She states she began having abdominal pains yesterday and states throughout the evening and into the night they continue to worsen. She states early this morning she began vomiting. Patient states she does have a history of diverticulitis and states this feels similar to a previous flare however she has never had vomiting with her diverticulitis flares before. Patient is not running fevers. She has no urinary complaints. Previous abdominal surgeries include a cholecystectomy, appendectomy that was performed during an exploratory laparoscopy, hysterectomy, and 3 sections. Patient also tells me she has a diagnosis of ARELLANO, ascities and nonspecific abdominal lymphadenopathy that is being watched by oncology/Dr. Morgan. ORTEGA elicited complaint: abdominal pain Pain Consistency: constant Location: Diffuse Radiation: none Migration to: no migration Exacerbating factors: eating Relieving factors: nothing Associated Symptoms: Reports diarrhea, nausea and vomiting; Denies chills, dysuria, fever(s), hematochezia, hematemesis, melena and syncope Related Data: Patient : No Review of Systems Const: Denies: fever(s), chills, body aches, fatigue or malaise Card: Denies: chest pain, palpitations, irregular heart rhythm, lightheadedness, syncope or dyspnea on exertion Resp: Denies: dyspnea, productive cough or pain on inspiration GI: Reports: abdominal pain, nausea, vomiting and diarrhea; Denies: hematemesis, hematochezia or melena : Denies: flank pain, difficulty voiding, dysuria, urinary frequency or urinary urgency Musc: Denies: neck pain, back pain, extremity pain or joint pain Skin/Breast: Denies: rash Neuro: Denies: headache(s) or dizziness PFS ED PFSH: Medical History (Updated 07/02/21 @ 14:13 by ADI Rubi) Diabetes Hypertension Surgical History (Updated 07/02/21 @ 10:07 by ADI Rubi) History of appendectomy History of back surgery History of History of carpal tunnel release of both wrists History of colonoscopy (~07/2019) History of hysterectomy History of laparoscopic cholecystectomy Family History Denies family history of Anesthesia complication Bleeding disorder Physical Exam Const: COMMON NORMALS: patient oriented x3, no limitations and alert GENERAL APPEARANCE: cooperative and in distress (mildly uncomfortable secondary to pain) NUTRITIONAL APPEARANCE: obese ORIENTATION/CONSCIOUSNESS: Yes awake, Yes oriented to person, Yes oriented to place and Yes oriented to time HENMT: COMMON NORMALS: normocephalic and atraumatic HEAD & SCALP: normocephalic and atraumatic Resp: COMMON NORMALS: normal respiratory effort and clear to auscultation bilaterally AUSCULTATION: clear to auscultation bilaterally Cardio: COMMON NORMALS: regular rate and regular rhythm RATE: regular rate RHYTHM: regular rhythm GI: COMMON NORMALS: Soft to palpation and no masses INSPECTION: Yes normal to inspection AUSCULTATION: Yes Hypoactive bowel sounds present PALPATION: Yes Soft to palpation, Yes Tenderness to palpation present (GI) (diffusely), Yes Guarding due to palpation present (GI) and No Rigid due to palpation : COMMON NORMALS: Yes no CVA tenderness BLADDER/KIDNEY EXAM: Yes no CVA tenderness Back/Pelvis: COMMON NORMALS: no CVA tenderness Extremity: COMMON NORMALS: normal to inspection Neuro: WILLIE COMA SCALE: document GCS findings Willie coma scale eye opening: Spontaneous [place] coma scale verbal response: Orientated [place] coma scale motor response: Obey commands [place] coma scale total score: 15 COMMON NORMALS: patient oriented x3, moves all extremities, no focal motor deficits and no sensory deficits noted SENSORIUM/ORIENTATION: Yes alert, Yes oriented to person, Yes oriented to place and Yes oriented to time Skin: COMMON NORMALS: no rashes or lesions noted GENERAL SKIN EXAM: no rashes or lesions noted Course Vital Signs: Vital signs: Vital Signs Temperature 98 F 07/02/21 14:45 Pulse Rate 66 07/02/21 14:45 Respiratory Rate 16 07/02/21 14:45 Blood Pressure 156/70 05/02/22 14:45 Pulse Oximetry 94 07/02/21 14:45 MDM - Abdominal Pain Medical Decision Making Patient has not had any episodes of vomiting or diarrhea during her stay. Her vital signs are stable. Lab work did show a white count of 13.7 with an initial lactate of 3.5. This is improving after IV fluids and is now down to 2.8. Patient is a diabetic with sugars in the 300s. I do not have any concerns for DKA at this time. Serum ketones negative. She does have chronically elevated LFTs that are stable compared to baseline labs today. CT scan shows some findings suspicious for enteritis, colitis, gastroduodenitis. She has chronic findings to her liver and abdominal lymph nodes that are unchanged compared to recent imaging are being followed with her oncologist. Patient was given IV antibiotics here and will be sent home with oral antibiotics. Strict return to ED precautions given. Recommend bland liquid diet over the next 48 hours and advance as tolerated. Lab Data : 07/02/21 09:45 07/02/21 09:45 Labs/Radiology: Radiology Impressions Abdomen/Pelvis CT 07/02/21 10:02 IMPRESSION: 1. Thickening with submucosal enhancement involving the RIGHT colon and proximal transverse colon suspicious for colitis. 2. Additional enhancing dilated loops of fluid-filled small bowel in the RIGHT lower quadrant suspicious for small bowel enteritis. 3. Gastric and duodenal wall thickening with enhancement compatible with gastroduodenitis. 4. Again seen are multiple enlarged upper abdominal and fausto hepatis lymph nodes as well as periaortic and retroperitoneal unchanged. Diffuse induration in the central mesentery is unchanged in appearance. 5. Cirrhosis and portal venous hypertension. Splenomegaly. 6. Multiple noncalcified nodules lung bases are unchanged. 7. Sigmoid diverticulosis. No evidence of acute diverticulitis. Laboratory Results WBC 13.7 10^3/uL (4.0-10.0) H 07/02/21 09:45 RBC 4.27 10^6/uL (4.1-5.3) 07/02/21 09:45 Hgb 13.2 g/dL (11.5-15.3) 07/02/21 09:45 Hct 38.8 % (37.0-47.0) 07/02/21 09:45 MCV 90.9 fl (81-99) 07/02/21 09:45 MCH 30.9 pg (28.0-34.0) 07/02/21 09:45 MCHC 34.0 g/dL (30.0-36.0) 07/02/21 09:45 RDW 13.6 % (12.1-15.1) 07/02/21 09:45 Plt Count 108 10^3/cmm (130-400) L 07/02/21 09:45 MPV 12.5 fL (7.4-10.4) H 07/02/21 09:45 Neut % (Auto) 89.6 % 07/02/21 09:45 Lymph % (Auto) 3.6 % 07/02/21 09:45 Childress % (Auto) 4.4 % 07/02/21 09:45 Eos % (Auto) 1.4 % 07/02/21 09:45 Baso % (Auto) 0.4 % 07/02/21 09:45 Neut # (Auto) 12.29 10^3/uL (1.8-7.7) H 07/02/21 09:45 Lymph # (Auto) 0.5 10^3/uL (0.8-4.8) L 07/02/21 09:45 Childress # (Auto) 0.6 10^3/uL (0.2-0.9) 07/02/21 09:45 Eos # (Auto) 0.2 10^3/uL (0.0-0.8) 07/02/21 09:45 Baso # (Auto) 0.1 10^3/uL (0.0-0.1) 07/02/21 09:45 Nucleated RBC % (auto) 0 % 07/02/21 09:45 Nucleated RBCs # 0.0 /100WBC 07/02/21 09:45 Sodium 132 mmol/L (136-145) L 07/02/21 09:45 Potassium 5.2 mmol/L (3.5-5.1) H 07/02/21 09:45 Chloride 96 mmol/L (98-107) L 07/02/21 09:45 Carbon Dioxide 19 mmol/L (22-29) L 07/02/21 09:45 Anion Gap 22.2 (5-19) H 07/02/21 09:45 BUN 15 mg/dL (8-23) 07/02/21 09:45 Creatinine 0.8 mg/dL (0.5-0.9) 07/02/21 09:45 GFR Calculation 72.4 mL/min (90-130) L 07/02/21 09:45 Glucose 319 mg/dL (65-115) H 07/02/21 09:45 Calculated Osmolality 287 mOsm/kg (285-295) 07/02/21 09:45 Lactic Acid 3.5 mmol/L (0.5-2.2) H 07/02/21 10:35 Lactic Acid (Sepsis) 2.8 mmol/L (0.5-2.2) H 07/02/21 12:50 Calcium 9.4 mg/dL (8.5-10.5) 07/02/21 09:45 Total Bilirubin 1.2 mg/dL (0.15-1.2) 07/02/21 09:45 AST 45 U/L (0-32) H 07/02/21 09:45 ALT 38 U/L (0-33) H 07/02/21 09:45 Alkaline Phosphatase 122 IU/L (35-105) H 07/02/21 09:45 Total Protein 7.3 g/dL (6.6-8.7) 07/02/21 09:45 Albumin 4.5 g/dL (3.5-5.2) 07/02/21 09:45 Globulin 2.8 g/dL (1.3-4.6) 07/02/21 09:45 Lipase 43 U/L (13-60) 07/02/21 09:45 Urine Color Yellow (Yellow) 07/02/21 10:45 Urine Appearance Clear (CLEAR) 07/02/21 10:45 Urine pH 5 (5-7) 07/02/21 10:45 Ur Specific [place] 1.015 (1.005-1.030) 07/02/21 10:45 Urine Protein Neg (Negative) 07/02/21 10:45 Urine Glucose (UA) 2+ (Normal) H 07/02/21 10:45 Urine Ketones 1+ (Negative) H 07/02/21 10:45 Urine Blood Neg (Negative) 07/02/21 10:45 Urine Nitrate Negative (Negative) 07/02/21 10:45 Urine Bilirubin 1+ (Negative) H 07/02/21 10:45 Urine Urobilinogen Norm mg/dL (Negative) 07/02/21 10:45 Ur Leukocyte Esterase Negative (Negative) 07/02/21 10:45 Serum Ketones Negative (Negative) 07/02/21 10:35 Discharge Plan Discharge Patient Disposition: Home Clinical Impression: Enterocolitis Condition: Stable Prescriptions: New ondansetron 4 mg tablet,disintegrating 4 mg PO Q8H PRN (Reason: nausea and vomiting) Qty: 14 0RF amoxicillin-pot clavulanate 875-125 mg tablet 1 tab PO BID Qty: 14 0RF hydrocodone-acetaminophen 5-325 mg tablet 1 tab PO Q6H PRN (Reason: pain) Qty: 10 0RF No Action spironolactone 50 mg tablet 50 mg PO BID 0RF metformin 500 mg tablet See Rx Instructions .ROUTE .COMPLEX 0RF Rx Instructions: 500mg po qam and 1000mg po bedtime glipizide 5 mg tablet extended release 24hr 10 mg PO DAILY 0RF levothyroxine 25 mcg tablet 25 mcg PO DAILY 0RF lactulose 10 gram/15 mL solution See Rx Instructions .ROUTE .COMPLEX 0RF Rx Instructions: 2 tablespoons po prn Januvia 50 mg tablet 50 mg PO DAILY 0RF Xifaxan 550 mg tablet 550 mg PO BID 0RF Probiotic 1 cap PO DAILY PRN (Reason: gut health) 0RF ondansetron 4 mg tablet,disintegrating 4 mg PO Q6H PRN (Reason: nausea and vomiting) Qty: 14 0RF penicillin V potassium 500 mg tablet 500 mg PO QID 0RF Rx Instructions: x 7 days Discharge Orders: Discharge ED (Routine); Ordered 07/02/21 Ordered By: Macrina Ramsey Referrals: Kami Mcgee MD [Primary Care Provider] - Patient Instructions: Gastroenteritis (DC), Colitis (ED) Activity Restrictions/Additional Instructions: As we discussed begin your antibiotics immediately. Do a bland/liquid diet over the next 48 hours and slowly advance as tolerated. You need to return to the emergency department for worsening or uncontrollable abdominal pain, repetitive episodes of vomiting or diarrhea, fevers greater than 100.4,, or any other concerns you may have. Hope you begin to feel better soon. Coding Level of Care Code ED Behavioral Instructor for Chg Fwd Exam Comprehensive Documented by User: Yves Reed DO 07/03/21 08:08 HPI - Abdominal Pain General: Chief Complaint: Abdominal Pain Stated Complaint: N/V, ABD PAIN Time Seen by Provider: 07/02/21 09:49 PFSH ED PFSH: Medical History (Updated 07/02/21 @ 14:13 by ADI Rubi) Diabetes Hypertension Surgical History (Updated 07/02/21 @ 10:07 by ADI Rubi) History of appendectomy History of back surgery History of History of carpal tunnel release of both wrists History of colonoscopy (~07/2019) History of hysterectomy History of laparoscopic cholecystectomy Family History Denies family history of Anesthesia complication Bleeding disorder Physical Exam Neuro: WILLIE COMA SCALE: document GCS findings Willie coma scale total score: 15 Course Vital Signs: Vital signs: Vital Signs Temperature 98 F 07/02/21 14:45 Pulse Rate 66 07/02/21 14:45 Respiratory Rate 16 07/02/21 14:45 Blood Pressure 156/70 07/02/21 14:45 Pulse Oximetry 94 07/02/21 14:45 MDM - Abdominal Pain Medical Decision Making Patient has not had any episodes of vomiting or diarrhea during her stay. Her vital signs are stable. Lab work did show a white count of 13.7 with an initial lactate of 3.5. This is improving after IV fluids and is now down to 2.8. Patient is a diabetic with sugars in the 300s. I do not have any concerns for DKA at this time. Serum ketones negative. She does have chronically elevated LFTs that are stable compared to baseline labs today. CT scan shows some findings suspicious for enteritis, colitis, gastroduodenitis. She has chronic findings to her liver and abdominal lymph nodes that are unchanged compared to recent imaging are being followed with her oncologist. Patient was given IV antibiotics here and will be sent home with oral antibiotics. Strict return to ED precautions given. Recommend bland liquid diet over the next 48 hours and advance as tolerated. Chart reviewed and patient discussed with midlevel. Agree with assessment and plan. Lab Data : 07/02/21 09:45 07/02/21 09:45 Labs/Radiology: Radiology Impressions Abdomen/Pelvis CT 07/02/21 10:02 IMPRESSION: 1. Thickening with submucosal enhancement involving the RIGHT colon and proximal transverse colon suspicious for colitis. 2. Additional enhancing dilated loops of fluid-filled small bowel in the RIGHT lower quadrant suspicious for small bowel enteritis. 3. Gastric and duodenal wall thickening with enhancement compatible with gastroduodenitis. 4. Again seen are multiple enlarged upper abdominal and fausto hepatis lymph nodes as well as periaortic and retroperitoneal unchanged. Diffuse induration in the central mesentery is unchanged in appearance. 5. Cirrhosis and portal venous hypertension. Splenomegaly. 6. Multiple noncalcified nodules lung bases are unchanged. 7. Sigmoid diverticulosis. No evidence of acute diverticulitis. Laboratory Results WBC 13.7 10^3/uL (4.0-10.0) H 07/02/21 09:45 RBC 4.27 10^6/uL (4.1-5.3) 07/02/21 09:45 Hgb 13.2 g/dL (11.5-15.3) 07/02/21 09:45 Hct 38.8 % (37.0-47.0) 07/02/21 09:45 MCV 90.9 fl (81-99) 07/02/21 09:45 MCH 30.9 pg (28.0-34.0) 07/02/21 09:45 MCHC 34.0 g/dL (30.0-36.0) 07/02/21 09:45 RDW 13.6 % (12.1-15.1) 07/02/21 09:45 Plt Count 108 10^3/cmm (130-400) L 07/02/21 09:45 MPV 12.5 fL (7.4-10.4) H 07/02/21 09:45 Neut % (Auto) 89.6 % 07/02/21 09:45 Lymph % (Auto) 3.6 % 07/02/21 09:45 [place] % (Auto) 4.4 % 07/02/21 09:45 Eos % (Auto) 1.4 % 07/02/21 09:45 Baso % (Auto) 0.4 % 07/02/21 09:45 Neut # (Auto) 12.29 10^3/uL (1.8-7.7) H 07/02/21 09:45 Lymph # (Auto) 0.5 10^3/uL (0.8-4.8) L 07/02/21 09:45 [place] # (Auto) 0.6 10^3/uL (0.2-0.9) 07/02/21 09:45 Eos # (Auto) 0.2 10^3/uL (0.0-0.8) 07/02/21 09:45 Baso # (Auto) 0.1 10^3/uL (0.0-0.1) 07/02/21 09:45 Nucleated RBC % (auto) 0 % 07/02/21 09:45 Nucleated RBCs # 0.0 /100WBC 07/02/21 09:45 Sodium 132 mmol/L (136-145) L 07/02/21 09:45 Potassium 5.2 mmol/L (3.5-5.1) H 07/02/21 09:45 Chloride 96 mmol/L (98-107) L 07/02/21 09:45 Carbon Dioxide 19 mmol/L (22-29) L 07/02/21 09:45 Anion Gap 22.2 (5-19) H 07/02/21 09:45 BUN 15 mg/dL (8-23) 07/02/21 09:45 Creatinine 0.8 mg/dL (0.5-0.9) 07/02/21 09:45 GFR Calculation 72.4 mL/min (90-130) L 07/02/21 09:45 Glucose 319 mg/dL (65-115) H 07/02/21 09:45 Calculated Osmolality 287 mOsm/kg (285-295) 07/02/21 09:45 Lactic Acid 3.5 mmol/L (0.5-2.2) H 07/02/21 10:35 Lactic Acid (Sepsis) 2.8 mmol/L (0.5-2.2) H 07/02/21 12:50 Calcium 9.4 mg/dL (8.5-10.5) 07/02/21 09:45 Total Bilirubin 1.2 mg/dL (0.15-1.2) 07/02/21 09:45 AST 45 U/L (0-32) H 07/02/21 09:45 ALT 38 U/L (0-33) H 07/02/21 09:45 Alkaline Phosphatase 122 IU/L (35-105) H 07/02/21 09:45 Total Protein 7.3 g/dL (6.6-8.7) 07/02/21 09:45 Albumin 4.5 g/dL (3.5-5.2) 07/02/21 09:45 Globulin 2.8 g/dL (1.3-4.6) 07/02/21 09:45 Lipase 43 U/L (13-60) 07/02/21 09:45 Urine Color Yellow (Yellow) 07/02/21 10:45 Urine Appearance Clear (CLEAR) 07/02/21 10:45 Urine pH 5 (5-7) 07/02/21 10:45 Ur Specific [place] 1.015 (1.005-1.030) 07/02/21 10:45 Urine Protein Neg (Negative) 07/02/21 10:45 Urine Glucose (UA) 2+ (Normal) H 07/02/21 10:45 Urine Ketones 1+ (Negative) H 07/02/21 10:45 Urine Blood Neg (Negative) 07/02/21 10:45 Urine Nitrate Negative (Negative) 07/02/21 10:45 Urine Bilirubin 1+ (Negative) H 07/02/21 10:45 Urine Urobilinogen Norm mg/dL (Negative) 07/02/21 10:45 Ur Leukocyte Esterase Negative (Negative) 07/02/21 10:45 Serum Ketones Negative (Negative) 07/02/21 10:35 Discharge Plan Discharge Patient Disposition: Home Clinical Impression: Enterocolitis Condition: Stable Prescriptions: New ondansetron 4 mg tablet,disintegrating 4 mg PO Q8H PRN (Reason: nausea and vomiting) Qty: 14 0RF amoxicillin-pot clavulanate 875-125 mg tablet 1 tab PO BID Qty: 14 0RF hydrocodone-acetaminophen 5-325 mg tablet 1 tab PO Q6H PRN (Reason: pain) Qty: 10 0RF No Action spironolactone 50 mg tablet 50 mg PO BID 0RF metformin 500 mg tablet See Rx Instructions .ROUTE .COMPLEX 0RF Rx Instructions: 500mg po qam and 1000mg po bedtime glipizide 5 mg tablet extended release 24hr 10 mg PO DAILY 0RF levothyroxine 25 mcg tablet 25 mcg PO DAILY 0RF lactulose 10 gram/15 mL solution See Rx Instructions .ROUTE .COMPLEX 0RF Rx Instructions: 2 tablespoons po prn Januvia 50 mg tablet 50 mg PO DAILY 0RF Xifaxan 550 mg tablet 550 mg PO BID 0RF Probiotic 1 cap PO DAILY PRN (Reason: gut health) 0RF ondansetron 4 mg tablet,disintegrating 4 mg PO Q6H PRN (Reason: nausea and vomiting) Qty: 14 0RF penicillin V potassium 500 mg tablet 500 mg PO QID 0RF Rx Instructions: x 7 days Discharge Orders: Discharge ED (Routine); Ordered 07/02/21 Ordered By: Macrina Ramsey Referrals: Kami Mcgee MD [Primary Care Provider] - Patient Instructions: Gastroenteritis (DC), Colitis (ED) Activity Restrictions/Additional Instructions: As we discussed begin your antibiotics immediately. Do a bland/liquid diet over the next 48 hours and slowly advance as tolerated. You need to return to the emergency department for worsening or uncontrollable abdominal pain, repetitive episodes of vomiting or diarrhea, fevers greater than 100.4,, or any other concerns you may have. Hope you begin to feel better soon. Coding Level of Care Code ED Behavioral Instructor for Roberta Fwd Exam Comprehensive
--- NOTE | 2021-07-02 10:02 | CT_ITS ---
WS: [id number] CT ABDOMEN PELVIS TECHNIQUE: Contrast-enhanced CT of the abdomen and pelvis with coronal and sagittal reformatted image s. CLINICAL INFORMATION: diffuse abdominal pain, N/V COMPARISON: May 21, 2021 DLP: 1620.[address] scans at [facility] use at least one of these dose optimization techniques: automated e xposure control; mA and/or kV adjustment per patient size (includes targeted exams where dose is matc hed to clinical indication); or iterative reconstruction. FINDINGS: Prior cholecystectomy. Prior hysterectomy. Hepatomegaly. Central mesenteric edema with lymphadenopath y along the mesenteric root in the upper abdomen unchanged from previous. Cirrhotic configuration to the liver with splenomegaly. Evidence of portal venous hypertension. Multiple enlarged upper abdomina l and fausto hepatis lymph nodes are unchanged. Enlarged lymph nodes along the celiac and SMA fausto he patis are unchanged. Additional enlarged lymph nodes periaortic and retroperitoneal. Multiple noncalcified nodules in the lung bases partially visualized largest measuring 9 mm in the RI GHT lower lobe. These are similar to previous. Diffuse fatty infiltration liver. Normal portal vein and splenic vein. Normal pancreatic parenchymal enhancement. Adrenal glands are normal. Normal renal parenchymal enhancement. No hydronephrosis. Renee ac and SMA are patent. Normal caliber abdominal aorta. Sigmoid diverticulosis. No evidence of acute diverticulitis. Edema with submucosal enhancement involv ing the RIGHT colon and proximal transverse colon can be seen with colitis. This appears progressed c ompared to previous. Prominent loops of small bowel in the RIGHT lower quadrant with enhancement susp icious for small bowel enteritis. Enhancement with gastric wall and duodenal wall thickening suspicio us for gastroduodenitis. CT/CT abdomen pelvis w con* [id number] IMPRESSION: 1. Thickening with submucosal enhancement involving the RIGHT colon and proxim al transverse colon suspicious for colitis. 2. Additional enhancing dilated loops of fluid-filled small bowel in the RIGHT lower quadrant suspicious for small bowel enteritis. 3. Gastric and duodenal wall thickening with enhancement compatible with gastr oduodenitis. 4. Again seen are multiple enlarged upper abdominal and fausto hepatis lymph no tanvi as well as periaortic and retroperitoneal unchanged. Diffuse induration in the central mesentery is unchanged in appearance. 5. Cirrhosis and portal venous hypertension. Splenomegaly. 6. Multiple noncalcified nodules lung bases are unchanged. 7. Sigmoid diverticulosis. No evidence of acute diverticulitis.
[2021-07-02 10:06] LABS: Basophils # 0.1 10^3/uL (0.0-0.1); Basophils % 0.4 %; Eosinophils # 0.2 10^3/uL (0.0-0.8); Eosinophils % 1.4 %; Hematocrit 38.8 % (37.0-47.0); Hemoglobin 13.2 g/dL (11.5-15.3); Lymphocytes # 0.5 10^3/uL (0.8-4.8); Lymphocytes % 3.6 %; Mean Corpuscular Hemoglobin 30.9 pg (28.0-34.0); Mean Corpuscular Volume 90.9 fl (81-99); Mean Platelet Volume 12.5 fL (7.4-10.4); Monocytes # 0.6 10^3/uL (0.2-0.9); Monocytes % 4.4 %; Neutrophils # 12.29 10^3/uL (1.8-7.7); Neutrophils % 89.6 %; Nucleated Red Blood Cells % 0 %; Platelet Count 108 10^3/cmm (130-400); Red Blood Count 4.27 10^6/uL (4.1-5.3); Red Cell Distribution Width 13.6 % (12.1-15.1); White Blood Count 13.7 10^3/uL (4.0-10.0)
[2021-07-02] MEDS: sodium chloride 0.9% 1,000 ML 999 ML IV ×2 (10:08→12:08)
[2021-07-02] MEDS: morphine 4 mg/mL SDV 1 mL IVP (10:08)
[2021-07-02] MEDS: ondansetron 2 mg/ML SDV 2 mL 4 MG IVP (10:08)
[2021-07-02 10:17] LABS: Alanine Aminotransferase 38 U/L (0-33); Albumin Level 4.5 g/dL (3.5-5.2); Alkaline Phosphatase 122 IU/L (35-105); Anion Gap 22.2 (5-19); Aspartate Amino Transferase 45 U/L (0-32); Blood Urea Nitrogen 15 mg/dL (8-23); Calcium 9.4 mg/dL (8.5-10.5); Carbon Dioxide 19 mmol/L (22-29); Chloride 96 mmol/L (98-107); Globulin 2.8 g/dL (1.3-4.6); Glomerular Filtration Rate 72.4 mL/min (90-130); Glucose 319 mg/dL (65-115); Lipase 43 U/L (13-60); Osmolality Calculated 287 mOsm/kg (285-295); Potassium 5.2 mmol/L (3.5-5.1); Sodium 132 mmol/L (136-145); Total Bilirubin 1.2 mg/dL (0.15-1.2); Total Protein 7.3 g/dL (6.6-8.7)
[2021-07-02] MEDS: iohexol 350 mg/mL 100 mL Btl IV (10:24)
[2021-07-02 10:50] LABS: Add Urine Microscopic? NO; Charge for UA Resulting for Rev
[2021-07-02 10:58] LABS: Protein Urine Neg (Negative); Specific Gravity, Urine 1.015 (1.005-1.030); Urine Appearance Clear (CLEAR); Urine Color Yellow (Yellow); pH Urine 5 (5-7)
[2021-07-02 10:59] LABS: Bilirubin Urine 1+ (Negative); Blood Urine Neg (Negative); Glucose Urine UA 2+ (Normal); Ketones Urine 1+ (Negative); Leukocyte Esterase Urine Negative (Negative); Nitrate Urine Negative (Negative); Urobilinogen Urine Norm (Negative)
[2021-07-02 11:19] LABS: Lactic Sepsis W/Reflex 3.5 mmol/L (0.5-2.2)
[2021-07-02 11:27] LABS: Ketone (Acetest) Serum Negative (Negative)
[2021-07-02] MEDS: piperacillin-tazobactam 3.375 GM in sodium chloride 0.9% (plus) 50 ML IV (12:08)
[2021-07-02 12:37] LABS: Reflex Lactate Order REFLEX LACTIC ORDERD
[2021-07-02 13:12] LABS: Lactic Acid level (Lactate) 2.8 mmol/L (0.5-2.2)
== END 2021-07-02 14:40 | disposition home or self-care (01) ==
PROVIDERS: Emergency Provider Physician Assistant; PCP Family Medicine
DX: K52.9 Noninfective gastroenteritis and colitis, unspecified (principal); R94.5 Abnormal results of liver function studies; R59.0 Localized enlarged lymph nodes; E11.9 Type 2 diabetes mellitus without complications; I10 Essential (primary) hypertension; Z79.84 Long term (current) use of oral hypoglycemic drugs; Z90.49 Acquired absence of other specified parts of digestive tract; Z90.710 Acquired absence of both cervix and uterus
CPT/HCPCS: 74177; 80053; 81003; 82009; 83605; 83690; 85025; 96361; 96374; 96375; 99284; J2270; J2405; J2543; J7030; Q9967

== ENCOUNTER 2021-07-03 19:59 | Emergency (ER) | payer MEDICARE, MEDICAID, SELFPAY ==
[2021-07-03 20:16] VITALS: BP 152/75; PULSE 82; RESP 15; TEMP 37.6; O2SAT 93; BMI 38.4
[2021-07-03 22:07] LABS: Basophils % 0.6 %; Eosinophils # 0.2 10^3/uL (0.0-0.8); Eosinophils % 3.1 %; Hematocrit 38.5 % (37.0-47.0); Hemoglobin 13.1 g/dL (11.5-15.3); Lymphocytes # 0.4 10^3/uL (0.8-4.8); Mean Corpuscular Hemoglobin 30.8 pg (28.0-34.0); Mean Corpuscular Volume 90.4 fl (81-99); Mean Platelet Volume 11.9 fL (7.4-10.4); Monocytes # 0.6 10^3/uL (0.2-0.9); Monocytes % 11.2 %; Neutrophils # 3.94 10^3/uL (1.8-7.7); Neutrophils % 77.1 %; Nucleated Red Blood Cells % 0 %; Platelet Count 79 10^3/cmm (130-400); Red Blood Count 4.26 10^6/uL (4.1-5.3); Red Cell Distribution Width 13.7 % (12.1-15.1); White Blood Count 5.1 10^3/uL (4.0-10.0)
[2021-07-03 22:22] LABS: Lactate (Lactic Acid level) 1.6 mmol/L (0.5-2.2)
[2021-07-03 22:23] LABS: Alanine Aminotransferase 53 U/L (0-33); Albumin Level 4.2 g/dL (3.5-5.2); Alkaline Phosphatase 88 IU/L (35-105); Anion Gap 17.2 (5-19); Aspartate Amino Transferase 94 U/L (0-32); Blood Urea Nitrogen 10 mg/dL (8-23); Carbon Dioxide 21 mmol/L (22-29); Chloride 95 mmol/L (98-107); Globulin 3.2 g/dL (1.3-4.6); Glomerular Filtration Rate 84.5 mL/min (90-130); Glucose 182 mg/dL (65-115); Lipase 39 U/L (13-60); Osmolality Calculated 272 mOsm/kg (285-295); Potassium 4.2 mmol/L (3.5-5.1); Sodium 129 mmol/L (136-145); Total Bilirubin 0.9 mg/dL (0.15-1.2); Total Protein 7.4 g/dL (6.6-8.7)
[2021-07-03 22:24] LABS: Alcohol Level < 10 mg/dL (0-10)
--- NOTE | 2021-07-03 22:28 | ED_ITS ---
HPI - Abdominal Pain General: Chief Complaint: Abdominal Pain Stated Complaint: ABD pain Time Seen by Provider: 07/03/21 21:48 Source: patient Mode of arrival: ambulatory Limitations: no limitations History of Present Illness: 67-year-old female states she been having some nausea vomiting diarrhea and abdominal pain over the last 3 days she states she started penicillin for tooth infection on Friday started having some diarrhea and abdominal pain after that she was seen here yesterday had a CT scan that showed duodenitis along with a colitis and started on Augmentin [place] and Zofran she states that she is continue to have the diarrhea that is been mucousy in nature along with diffuse abdominal cramping she rates a 5 out of 10 she denies any fever denies any worsening proving factors any blood in her stool. Associated Symptoms: Reports nausea and vomiting; Denies chills, dysuria and fever(s) Review of Systems 2 Const: Denies: fever(s), chills, body aches or change in appetite Eyes: Denies: blurry vision or eye discomfort ENMT: Denies: throat pain or dental pain Card: Denies: chest pain Resp: Denies: dyspnea GI: Reports: abdominal pain, nausea and vomiting : Denies: dysuria Musc: Denies: neck pain or back pain Skin/Breast: Denies: rash Neuro: Denies: headache(s) Psych: Denies: depression Prabhu/Lymph: Denies: easy bruising All/Imm: Denies: urticaria PFSH ED PFSH: Medical History Diabetes Hypertension Surgical History History of appendectomy History of back surgery History of History of carpal tunnel release of both wrists History of colonoscopy (~07/2019) History of hysterectomy History of laparoscopic cholecystectomy Family History Denies family history of Anesthesia complication Bleeding disorder Physical Exam Const: COMMON NORMALS: no acute distress, patient oriented x3 and healthy appearing HENMT: COMMON NORMALS: normocephalic and atraumatic HEAD & SCALP: normocephalic and atraumatic Eye: COMMON NORMALS: Equal, round and reactive pupils present and EOMs intact bilaterally PUPIL: Yes Equal, round and reactive pupils present Neck/C-Spine: COMMON NORMALS: full ROM and supple Chest: COMMONS NORMALS: normal inspection of the chest and normal palpation of entire chest wall Resp: COMMON NORMALS: normal respiratory effort, No retractions, No use of accessory muscles and clear to auscultation bilaterally AUSCULTATION: clear to auscultation bilaterally Cardio: COMMON NORMALS: regular rate, regular rhythm and No murmurs present (Cardio) RATE: regular rate RHYTHM: regular rhythm GI: COMMON NORMALS: Normal to inspection, nondistended, normoactive bowel sounds present, Soft to palpation, non-tender and no masses PALPATION: Yes Soft to palpation Extremity: COMMON NORMALS: normal to inspection and full ROM Neuro: COMMON NORMALS: patient oriented x3, moves all extremities and no focal motor deficits Psych: COMMON NORMALS: mental status grossly normal, Normal thought process present and cooperative THOUGHT PROCESS: Normal thought process present Skin: COMMON NORMALS: no rashes or lesions noted and no wounds GENERAL SKIN EXAM: no rashes or lesions noted Course Vital Signs: Vital signs: Vital Signs Temperature 99.7 F H 07/03/21 20:16 Pulse Rate 81 07/03/21 23:41 Respiratory Rate 18 07/03/21 23:41 Blood Pressure 147/70 07/03/21 23:41 Pulse Oximetry 95 07/03/21 23:41 MDM - Abdominal Pain Medical Decision Making Patient presents here with abdominal pain likely a gastritis along with colitis stool samples were sent we will follow the cultures she feels much improved here. We will start her on Flagyl along with Protonix as well she is to stop the penicillin and continue the Augmentin she is to follow-up with her GI specialist as scheduled return if worsening she understands agrees plan. Abdominal exam at discharge is benign Lab Data : 07/03/21 22:01 07/03/21 22:01 Labs/Radiology: Laboratory Results WBC 5.1 10^3/uL (4.0-10.0) 07/03/21 22:01 RBC 4.26 10^6/uL (4.1-5.3) 07/03/21 22:01 Hgb 13.1 g/dL (11.5-15.3) 07/03/21 22: Hct 38.5 % (37.0-47.0) 07/03/21 22: MCV 90.4 fl (81-99) 07/03/21 22: MCH 30.8 pg (28.0-34.0) 07/03/21 22: MCHC 34.0 g/dL (30.0-36.0) 07/03/21 22: RDW 13.7 % (12.1-15.1) 07/03/21: Plt Count 79 10^3/cmm (130-400) L 07/03/21 22: MPV 11.9 fL (7.4-10.4) H 07/03/21 22: Neut % (Auto) 77.1 % 07/03/21 22: Lymph % (Auto) 7.0 % 07/03/21: [place] % (Auto) 11.2 % 07/03/21: Eos % (Auto) 3.1 % 07/03/21 22: Baso % (Auto) 0.6 % 07/03/21: Neut # (Auto) 3.94 10^3/uL (1.8-7.7) 07/03/21 22: Lymph # (Auto) 0.4 10^3/uL (0.8-4.8) L 07/03/21 22: [place] # (Auto) 0.6 10^3/uL (0.2-0.9) 07/03/21 22: Eos # (Auto) 0.2 10^3/uL (0.0-0.8) 07/03/21 22: Baso # (Auto) 0.0 10^3/uL (0.0-0.1) 07/03/21 22: Nucleated RBC % (auto) 0 % 07/03/21 22: Nucleated RBCs # 0.0 /100WBC 07/03/21 22: Sodium 129 mmol/L (136-145) L 07/03/21: Potassium 4.2 mmol/L (3.5-5.1) 07/03/21 22: Chloride 95 mmol/L (98-107) L 07/03/21 22: Carbon Dioxide 21 mmol/L (22-29) L 07/03/21:01 Anion Gap 17.2 (5-19) 07/03/21 22:01 BUN 10 mg/dL (8-23) 07/03/21 22:01 Creatinine 0.7 mg/dL (0.5-0.9) 07/03/21 22: GFR Calculation 84.5 mL/min (90-130) L 07/03/21 22:01 Glucose 182 mg/dL (65-115) H 07/03/21 22: Calculated Osmolality 272 mOsm/kg (285-295) L 07/03/21 22:01 Lactate 1.6 mmol/L (0.5-2.2) 07/03/21 22:01 Calcium 9.0 mg/dL (8.5-10.5) 07/03/21 22: Total Bilirubin 0.9 mg/dL (0.15-1.2) 07/03/21 22:01 AST 94 U/L (0-32) H 07/03/21 22:01 ALT 53 U/L (0-33) H 07/03/21 22: Alkaline Phosphatase 88 IU/L (35-105) 07/03/21 22:01 Total Protein 7.4 g/dL (6.6-8.7) 07/03/21 22: Albumin 4.2 g/dL (3.5-5.2) 07/03/21 22: Globulin 3.2 g/dL (1.3-4.6) 07/03/21 22: Lipase 39 U/L (13-60) 07/03/21 22: Ethyl Alcohol < 10 mg/dL (0-10) 07/03/21 22:01 Discharge Plan Discharge Patient Disposition: Home Clinical Impression: Diarrhea Abdominal pain Qualifiers: Abdominal location: generalized Qualified Code(s): R10.84 - Generalized abdominal pain Condition: Stable Prescriptions: New Protonix 40 mg tablet,delayed release (DR/EC) 40 mg PO DAILY Qty: 60 0RF metronidazole 500 mg tablet 500 mg PO BID 7 Days Qty: 14 0RF No Action spironolactone 50 mg tablet 50 mg PO BID 0RF metformin 500 mg tablet See Rx Instructions .ROUTE .COMPLEX 0RF Rx Instructions: 500mg po qam and 1000mg po bedtime glipizide 5 mg tablet extended release 24hr 10 mg PO DAILY 0RF levothyroxine 25 mcg tablet 25 mcg PO DAILY 0RF lactulose 10 gram/15 mL solution See Rx Instructions .ROUTE .COMPLEX 0RF Rx Instructions: 2 tablespoons po prn Januvia 50 mg tablet 50 mg PO DAILY 0RF Xifaxan 550 mg tablet 550 mg PO BID 0RF Probiotic 1 cap PO DAILY PRN (Reason: gut health) 0RF ondansetron 4 mg tablet,disintegrating 4 mg PO Q6H PRN (Reason: nausea and vomiting) Qty: 14 0RF penicillin V potassium 500 mg tablet 500 mg PO QID 0RF Rx Instructions: x 7 days ondansetron 4 mg tablet,disintegrating 4 mg PO Q8H PRN (Reason: nausea and vomiting) Qty: 14 0RF amoxicillin-pot clavulanate 875-125 mg tablet 1 tab PO BID Qty: 14 0RF hydrocodone-acetaminophen 5-325 mg tablet 1 tab PO Q6H PRN (Reason: pain) Qty: 10 0RF Discharge Orders: Discharge ED (Routine); Ordered 07/03/21 Ordered By: Sundeep Zuleta Referrals: Kami Mcgee MD [Primary Care Provider] - 1-3 days Discharge Diet: Advance as tolerated Discharge Activity: Resume usual activity Patient Instructions: Abdominal Pain (ED) Coding Level of Care Code ED Production Engineer for Chg Fwd Exam Comprehensive
[2021-07-03] MEDS: lidocaine 2% viscous 15 ML, aluminum-mag hydrox-simethicon 30 ML, sucralfate oral liq 1 GM PO (22:29)
[2021-07-03] MEDS: pantoprazole 40 mg SDV IVP (22:29)
[2021-07-03] MEDS: ondansetron 2 mg/ML SDV 2 mL 4 MG IVP (22:29)
[2021-07-03 22:30] VITALS: BP 145/57; PULSE 8; RESP 15; O2SAT 94
[2021-07-03 23:15] VITALS: BP 124/54; PULSE 81; RESP 16; O2SAT 93
[2021-07-03 23:41] VITALS: BP 147/70; PULSE 81; RESP 18; O2SAT 95
== END 2021-07-03 23:43 | disposition home or self-care (01) ==
PROVIDERS: Emergency Provider Emergency Medicine; PCP Family Medicine
DX: R19.7 Diarrhea, unspecified (principal); R10.84 Generalized abdominal pain; Z79.2 Long term (current) use of antibiotics; E11.9 Type 2 diabetes mellitus without complications; I10 Essential (primary) hypertension; Z79.84 Long term (current) use of oral hypoglycemic drugs
CPT/HCPCS: 80053; 80307; 83605; 83690; 85025; 87493; 87506; 96374; 96375; 99284; C9113; J2405

== ENCOUNTER → 2021-11-14 09:51 | Outpatient (BNVA) | payer MEDICARE, MEDICAID, SELFPAY | PROVIDERS: PCP Family Medicine; Visit Provider Podiatrist Foot & Ankle Surgery | DX: M72.2 Plantar fascial fibromatosis (principal); M21.371 Foot drop, right foot | CPT/HCPCS: 20550; 73630; J1100; J3301; J3490 ==

== ENCOUNTER 2021-12-17 14:21 | Outpatient (CLI) | payer MEDICARE, MEDICAID, SELFPAY ==
[2021-12-17] MEDS: iohexol 350 mg/mL 100 mL Btl PO (14:48)
[2021-12-17] MEDS: iohexol 350 mg/mL 100 mL Btl IV (16:00)
--- NOTE | 2021-12-17 16:00 | CT_ITS ---
WS: [id number] CT ABDOMEN AND PELVIS WITH CONTRAST HISTORY: lymphadenopathy TECHNIQUE: Imaging performed of the abdomen and pelvis with IV contrast. Single phase imaging of the abdomen. Coronal and sagittal reformats are submitted. All CT scans at [facility] use at [address] [facility] one of these dose optimization techniques: automated exposure control; mA and/or kV adjustment per patient size (includes targeted exams where dose is matched to clinical indication); or iterative re construction. IV CONTRAST: Omnipaque 350; 95 mL IV. Oral contrast: Yes. DLP: 1148.97 mGy.cm COMPARISON: 2021, 05/21/2021 Lower thorax: Multiple noncalcified subcentimeter pulmonary nodules at the lung bases are stable sinc e at least 08/05/2019. Heart is normal size. Small hiatal hernia. Liver/biliary system: RIGHT lobe of the liver is shrunken. LEFT lobe is enlarged. Mild enlargement of the caudate lobe. Surface of the liver is nodular and irregular. No mass or bile duct dilatation. Gallbladder: Status post cholecystectomy. Pancreas: Normal size pancreas and pancreatic duct. No adjacent inflammation. Spleen: Spleen is enlarged measuring 15.3 cm in length. There are a few small low-attenuation nodule towards are stable. Adrenal glands: Normal. Right kidney: Low normal size kidney. No obstruction or mass. Left kidney: Normal size kidney with no obstruction or mass. Aorta: Mild atherosclerosis with no aneurysm. Lymphadenopathy: Central mesenteric and gastrohepatic lymph nodes are reidentified. Largest lymph nod e measures 11 mm. These lymph nodes have continued to slowly decrease in size and number over several prior examinations. There are a few small shoddy retroperitoneal lymph nodes measuring up to 12 mm. No new or increasing lymphadenopathy. The mesenteric misting and stranding persists but not progresse d. Free fluid: There is a small amount of ascites adjacent to the liver and spleen. There is also small amount of fluid just superior to the urinary bladder. GI tract: Normally distended stomach with oral contrast. Mild fluid distention of the small bowel but no obstruction. Previously described increased fluid in the small bowel is no longer present. No sig nificant wall thickening throughout the colon. There is constipation and evidence for mild chronic di verticulosis. Abdominal wall: Unremarkable abdominal wall. No hernia. Pelvis: Small amount of fluid adjacent to the urinary bladder. No adenopathy. Bones: No osteoblastic or osteolytic bone disease. CT/CT abdomen pelvis w con* [id number] IMPRESSION: 1. Improvement in the diffuse colitis and gastroduodenitis since the prior clair dy. 2. Cirrhotic configuration of the liver with a small amount of ascites in the abdomen and pelvis. The ascites is new. 3. No change or progression of the gastrohepatic, mesenteric or retroperitonea l lymph nodes. Slight improvement in the mesenteric misting. 4. Splenomegaly and changes of portal venous hypertension. 5. Stable noncalcified nodules at the lung bases.
== END 2021-12-17 14:22 | disposition home or self-care (01) ==
PROVIDERS: PCP Family Medicine; Visit Provider Internal Medicine Medical Oncology
DX: R59.0 Localized enlarged lymph nodes (principal); R91.8 Other nonspecific abnormal finding of lung field; R16.1 Splenomegaly, not elsewhere classified; K76.6 Portal hypertension
CPT/HCPCS: 74177

== ENCOUNTER → 2021-12-26 08:58 | Outpatient (BNVA) | payer MEDICARE, MEDICAID, SELFPAY | PROVIDERS: PCP Family Medicine; Visit Provider Podiatrist Foot & Ankle Surgery | DX: M72.2 Plantar fascial fibromatosis (principal); M21.371 Foot drop, right foot | CPT/HCPCS: 99213 ==

== ENCOUNTER 2021-12-28 06:54 | Outpatient (CLI) | payer MEDICARE, MEDICAID, SELFPAY ==
--- NOTE | 2021-12-28 | US_ITS ---
WS: [id number] Complete ABDOMINAL ULTRASOUND HISTORY: ABD PAIN/ARELLANO COMPARISON: 01/05/[address] 12/17/2021 Liver: 14.2 cm in length. Surface of the liver is nodular. Coarse echotexture throughout both lobes. The LEFT lobe of the liver is larger than the RIGHT. No mass or bile duct dilatation. Portal Vein: Normal hepatopetal flow with monophasic waveform. Gallbladder: Prior cholecystectomy. Pancreas: Normal size and echogenicity. CBD: 0.4 cm. Right kidney: 8.6 cm x 5.7 cm x 4.4 cm. No mass, cortical thickening or hydronephrosis. Left kidney: 8.9 cm x 4.1 cm x 4.1 cm. No mass, cortical thickening or hydronephrosis. Spleen: 15.9 cm in length. Spleen is moderately enlarged. No mass. No adjacent ascites. Abdominal aorta and IVC are within normal limits. No ascites. US/US abdomen complete* [id number] IMPRESSION: 1. Cirrhotic liver with changes of portal venous hypertension. 2. Mild hepatic steatosis. 3. Moderately enlarged spleen at 15.9 cm. 4. Prior cholecystectomy.
== END 2021-12-28 06:55 | disposition home or self-care (01) ==
LOC: RAD 06:54
PROVIDERS: PCP Family Medicine; Visit Provider Family Medicine
DX: R10.9 Unspecified abdominal pain (principal); K75.81 Nonalcoholic steatohepatitis (NASH); R18.8 Other ascites; R16.1 Splenomegaly, not elsewhere classified; Z90.49 Acquired absence of other specified parts of digestive tract
CPT/HCPCS: 76700

== ENCOUNTER 2022-01-01 14:06 | Oncology outpatient (recurring) (ONCR) | payer MEDICARE, MEDICAID, SELFPAY | END 2022-01-30 23:59 | disposition home or self-care (01) | LOC: ONCMED 14:08 | PROVIDERS: PCP Family Medicine; Visit Provider Internal Medicine Medical Oncology | DX: R59.0 Localized enlarged lymph nodes; K74.60 Unspecified cirrhosis of liver; R53.83 Other fatigue; D64.9 Anemia, unspecified | CPT/HCPCS: 36415; 80053; 83540; 83550; 85025; 99214 ==

== ENCOUNTER 2022-01-07 10:54 | Outpatient (CLI) | payer MEDICARE, MEDICAID, SELFPAY | END 2022-01-07 10:55 | disposition home or self-care (01) | LOC: LAB 10:57 | PROVIDERS: PCP Family Medicine; Visit Provider Family Medicine | DX: N39.0 Urinary tract infection, site not specified (principal) | CPT/HCPCS: 87086 ==

== ENCOUNTER → 2022-02-06 07:52 | Outpatient (BNVA) | payer MEDICARE, MEDICAID, SELFPAY | PROVIDERS: PCP Family Medicine; Visit Provider Podiatrist Foot & Ankle Surgery | DX: M72.2 Plantar fascial fibromatosis (principal); M21.371 Foot drop, right foot | CPT/HCPCS: 20550; J1100; J3301 ==

== ENCOUNTER 2022-04-15 07:45 | Outpatient (CLI) | payer MEDICARE, MEDICAID, SELFPAY ==
--- NOTE | 2022-04-15 08:04 | MR_ITS ---
WS: [id number] MRI OF THE ABDOMEN WITHOUT AND WITH GADOLINIUM ENHANCEMENT INDICATION: Abdominal pain with nausea TECHNIQUE: Axial T2, dual echo, 2-D fiesta, coronal 2-D fiesta, post gadolinium imaging was obtained with fat saturation technique COMPARISON: CT December 17, 2021 FINDINGS: Liver cirrhosis. Splenomegaly with evidence of portal venous hypertension. Small amount of perihepatic and perisplenic fluid. Mesenteric edema. Splenic vein and portal vein appear patent. No h ydronephrosis in either kidney. Upper abdominal varices and lymphadenopathy similar to the prior CT. Lung bases appear well aerated. Normal caliber partially visualized upper abdominal aorta. Spleen gerald sures 16.0 cm [id number]. Heterogeneous liver parenchymal enhancement. No focal lesions. Normal pancreatic parenchymal enhancement. Visualized common bile duct appears normal. Prior cholecys tectomy. Adrenal glands are normal. Tiny esophageal hiatal hernia. MR/MR abdomen wo/w con* [id number] IMPRESSION: Some images degraded by patient motion 1. Cirrhotic liver with splenomegaly and evidence of portal venous hypertensio n. 2. Small amount of perihepatic and perisplenic ascites. Mesenteric edema. 3. Upper abdominal varices and lymphadenopathy similar to the prior CT 4. Portal vein and splenic vein appear patent. 5. Splenomegaly measures 16.0 cm [id number]. 6. Diffuse heterogeneous hepatic enhancement. No focal lesions. 7. Visualized bile duct appears normal. Prior cholecystectomy.
[2022-04-15] MEDS: gadobenate dimeglumine 20 mL vial IV (08:46)
== END 2022-04-15 07:46 | disposition home or self-care (01) ==
LOC: RAD 07:51
PROVIDERS: PCP Family Medicine; Visit Provider Internal Medicine Gastroenterology
DX: K74.60 Unspecified cirrhosis of liver (principal); R11.2 Nausea with vomiting, unspecified; R68.81 Early satiety; K76.9 Liver disease, unspecified; I85.00 Esophageal varices without bleeding; R16.1 Splenomegaly, not elsewhere classified; R18.8 Other ascites; R59.1 Generalized enlarged lymph nodes; Z90.49 Acquired absence of other specified parts of digestive tract
CPT/HCPCS: 74183; A9577

== ENCOUNTER → 2022-04-24 10:39 | Outpatient (BNVA) | payer MEDICARE, MEDICAID, SELFPAY | PROVIDERS: PCP Family Medicine; Visit Provider Podiatrist Foot & Ankle Surgery | DX: M72.2 Plantar fascial fibromatosis (principal); M21.371 Foot drop, right foot | CPT/HCPCS: 20550; J1100; J3301 ==

== ENCOUNTER 2022-05-19 12:36 | Emergency (ER) | payer MEDICARE, MEDICAID, SELFPAY ==
[2022-05-19 12:52] VITALS: BP 174/98; PULSE 79; RESP 17; TEMP 36.9; O2SAT 96; BMI 36.3
--- NOTE | 2022-05-19 12:53 | XRR_ITS ---
PROCEDURE INFORMATION: Exam: XR Right Forearm Exam date and time: 05/19/2022 12:58 PM Age: 66 years old Clinical indication: Pain; Lower or forearm; Right; Additional info: Injury TECHNIQUE: Imaging protocol: Radiologic exam of the right forearm. Views: 2 views. COMPARISON: No relevant prior studies available. FINDINGS: Bones/joints: Normal. Soft tissues: Normal. XR/XR forearm RT 2V [id number] IMPRESSION: No acute findings.
--- NOTE | 2022-05-19 13:16 | XRR_ITS ---
PROCEDURE INFORMATION: Exam: XR Right Wrist Exam date and time: 05/19/2022 1:22 PM Age: 66 years old Clinical indication: Injury or trauma; Fall; Blunt trauma (contusions or hematomas); Wrist; Right TECHNIQUE: Imaging protocol: Radiologic exam of the right wrist. Views: 3 or more views. COMPARISON: CR (UP EX, ) 05/19/2022 12:58 PM FINDINGS: Bones/joints: Alignment is normal. No acute fracture. Soft tissues: Visible soft tissues are unremarkable. XR/XR wrist RT min 3V* [id number] IMPRESSION: No acute fracture.
--- NOTE | 2022-05-19 13:17 | W.ED.EXTPRO ---
HPI - Extremity Problem General: Chief complaint: Extremity Injury, Upper Stated complaint: Right Arm Injury Time Seen by Provider: 05/19/22 12:38 Source: patient Mode of arrival: ambulatory Limitations: no limitations History of Present Illness: 66-year-old female states that she fell just prior to arrival states she tripped over a rug and tried to catch herself with her left hand she has left wrist pain she states. Some pain going down her forearm as well states the pain is a 3 out of 10 worse with movement improved with rest denies any other injuries. Associated symptoms: Deny chest pain, fever(s) or rash Review of Systems Const: Denies: fever(s), chills, body aches or change in appetite Eyes: Denies: blurry vision or eye discomfort ENMT: Denies: throat pain or dental pain Card: Denies: chest pain Resp: Denies: dyspnea GI: Denies: abdominal pain, nausea, vomiting or diarrhea : Denies: dysuria Musc: Reports: extremity pain Skin/Breast: Denies: rash Neuro: Denies: headache(s) Psych: Denies: depression Prabhu/Lymph: Denies: easy bruising All/Imm: Denies: urticaria PFSH ED PFSH: Medical History Hyperlipidemia Hypertension Hypothyroidism Iron deficiency anemia 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 Obstructive sleep apnea Type 2 diabetes mellitus Surgical History History of appendectomy History of back surgery x 5 History of x 3 History of carpal tunnel release of both wrists History of colonoscopy (~07/2019) History of esophagogastroduodenoscopy EGD with esophageal banding History of hysterectomy with unilateral oophorectomy History of laparoscopic cholecystectomy Family History Denies family history of Anesthesia complication Bleeding disorder Social History Smoking and tobacco status: never smoked Physical Exam Const: COMMON NORMALS: no acute distress, patient oriented x3 and healthy appearing HENMT: COMMON NORMALS: normocephalic and atraumatic HEAD & SCALP: normocephalic and atraumatic Eye: COMMON NORMALS: conjunctivae normal CONJUNCTIVA: Yes conjunctivae normal Neck/C-Spine: COMMON NORMALS: supple Chest: COMMONS NORMALS: normal inspection of the chest Resp: COMMON NORMALS: normal respiratory effort Cardio: COMMON NORMALS: regular rate and No murmurs present (Cardio) RATE: regular rate GI: INSPECTION: Yes normal to inspection Extremity: COMMON NORMALS: normal to inspection and full ROM NARRATIVE EXTREMITY EXAM: Slight tenderness over left wrist no obvious deformity Neuro: COMMON NORMALS: patient oriented x3, moves all extremities and no focal motor deficits Psych: COMMON NORMALS: mental status grossly normal, Normal thought process present and cooperative THOUGHT PROCESS: Normal thought process present Skin: COMMON NORMALS: no rashes or lesions noted and no wounds GENERAL SKIN EXAM: no rashes or lesions noted Course Vital Signs: Vital signs: Vital Signs Temperature 98.4 F 05/19/22 12:52 Pulse Rate 79 05/19/22 12:52 Respiratory Rate 17 05/19/22 12:52 Blood Pressure 174/98 05/19/22 12:52 Pulse Oximetry 96 05/19/22 12:52 Oxygen Delivery Me thod 05/19/22 12:52 MDM - Extremity (Nontraumatic) Medical Decision Making Patient presents here with wrist sprain from a fall x-ray here is negative exam is benign we will Geovani wrap she is to ice she is stable for discharge she is to follow-up PCP and return if worsening. Lab Data Radiology Impressions Forearm X-Ray 05/19/22 12:53 IMPRESSION: No acute findings. Wrist X-Ray 05/19/22 13:16 IMPRESSION: No acute fracture. Discharge Plan Discharge Patient Disposition: Home Clinical Impression: Sprain and strain of wrist Condition: Stable Prescriptions: No Action spironolactone 50 mg tablet 50 mg PO BID pantoprazole [Protonix] 40 mg tablet,delayed release (DR/EC) 40 mg PO DAILY PRN omeprazole 10 mg capsule,delayed release(DR/EC) 10 mg PO DAILY metformin 500 mg tablet See Rx Instructions .ROUTE .COMPLEX Rx Instructions: 500mg po qam and 1000mg po bedtime levothyroxine 25 mcg tablet 25 mcg PO DAILY lactulose 10 gram/15 mL solution See Rx Instructions .ROUTE .COMPLEX Rx Instructions: 2 tablespoons po prn Januvia 50 mg tablet 50 mg PO DAILY Xifaxan 550 mg tablet 550 mg PO BID Probiotic 1 cap PO DAILY PRN (Reason: gut health) ondansetron 4 mg tablet,disintegrating 4 mg PO Q6H PRN (Reason: nausea and vomiting) Qty: 14 0RF glipizide 5 mg tablet extended release 24hr 5 mg PO DAILY hydrocodone-acetaminophen 5-325 mg tablet 1 tab PO Q6H PRN (Reason: pain) Qty: 10 0RF Discharge Orders: Discharge ED (Routine); Ordered 05/19/22 Ordered By: Sundeep Zuleta Referrals: Kami Mcgee MD [Primary Care Provider] - 1-3 days Discharge Diet: Advance as tolerated Discharge Activity: Resume usual activity Patient Instructions: Wrist Sprain (ED) Coding Level of Care Code ED Industrial Security Analyst for Roberta Valdes
[2022-05-19 13:58] VITALS: BP 165/70
== END 2022-05-19 13:59 | disposition home or self-care (01) ==
PROVIDERS: Emergency Provider Emergency Medicine; PCP Family Medicine
DX: S63.501A Unspecified sprain of right wrist, initial encounter (principal); S66.911A Strain of unspecified muscle, fascia and tendon at wrist and hand level, right hand, initial encounter; Z79.84 Long term (current) use of oral hypoglycemic drugs; E78.5 Hyperlipidemia, unspecified; I10 Essential (primary) hypertension; E11.9 Type 2 diabetes mellitus without complications; W18.09XA Striking against other object with subsequent fall, initial encounter
CPT/HCPCS: 73090; 73110; 99283

== ENCOUNTER 2022-06-24 13:26 | Outpatient (CLI) | payer MEDICARE, MEDICAID, SELFPAY ==
--- NOTE | 2022-06-24 13:38 | MM_ITS ---
WS: [id number] BILATERAL 3D TOMOSYNTHESIS DIGITAL SCREENING MAMMOGRAPHY WITH CAD CLINICAL INFORMATION: SCREENING HISTORY: Screening mammogram. No current complaints. COMPARISON: February 05, 2021 TECHNIQUE: Bilateral CC and MLO views. FINDINGS: Scattered fibroglandular densities bilaterally. No suspicious focal mass, asymmetry, calcifications, or architectural distortion. No evidence of malignancy. Punctate and lucent centered calcifications. MM/[place] [id number] IMPRESSION: BI-RADS: 2-Benign FOLLOW UP: 1 Year Follow-up Recommend return to annual screening mammography.
== END 2022-06-24 13:27 | disposition home or self-care (01) ==
PROVIDERS: PCP Family Medicine; Visit Provider Family Medicine
DX: Z12.11 Encounter for screening for malignant neoplasm of colon (principal)
CPT/HCPCS: 77063; 77067

== ENCOUNTER → 2022-07-03 08:04 | Outpatient (BNVA) | payer MEDICARE, MEDICAID, SELFPAY | PROVIDERS: PCP Family Medicine; Visit Provider Podiatrist Foot & Ankle Surgery | DX: M72.2 Plantar fascial fibromatosis (principal); M21.371 Foot drop, right foot | CPT/HCPCS: 20550; J1100; J3301 ==

== ENCOUNTER 2022-07-26 11:36 | Outpatient (CLI) | payer MEDICARE, MEDICAID, SELFPAY ==
[2022-07-26 12:48] LABS: Basophils % 0.5 %; Eosinophils # 0.2 10^3/uL (0.0-0.8); Eosinophils % 1.8 %; Hematocrit 35.2 % (37.0-47.0); Hemoglobin 11.2 g/dL (11.5-15.3); Lymphocytes # 0.9 10^3/uL (0.8-4.8); Lymphocytes % 10.3 %; Mean Corpuscular HGB Conc 31.8 g/dL (30.0-36.0); Mean Corpuscular Hemoglobin 29.4 pg (28.0-34.0); Mean Corpuscular Volume 92.4 fl (81-99); Mean Platelet Volume 11.7 fL (7.4-10.4); Monocytes # 0.6 10^3/uL (0.2-0.9); Monocytes % 6.8 %; Neutrophils # 6.79 10^3/uL (1.8-7.7); Neutrophils % 80.1 %; Nucleated Red Blood Cells % 0 %; Platelet Count 100 10^3/cmm (130-400); Red Blood Count 3.81 10^6/uL (4.1-5.3); Red Cell Distribution Width 14.1 % (12.1-15.1); White Blood Count 8.5 10^3/uL (4.0-10.0)
[2022-07-26 13:23] LABS: Alanine Aminotransferase 48 U/L (0-33); Albumin Level 3.7 g/dL (3.5-5.2); Alkaline Phosphatase 127 U/L (35-105); Anion Gap 16.4 (5-19); Aspartate Amino Transferase 34 U/L (0-32); Blood Urea Nitrogen 10 mg/dL (8-23); Calcium 9.4 mg/dL (8.5-10.5); Carbon Dioxide 21 mmol/L (22-29); Chloride 102 mmol/L (98-107); Chol HDL Ratio 2.93 mg/dL (0.0-4.40); Cholesterol 205 mg/dL (0-200); Glomerular Filtration Rate 72.2 mL/min (90-130); Glucose 137 mg/dL (65-115); HDL Cholesterol 70 mg/dL (60-100); LDL Cholesterol Calculated 122 mg/dL (50-129); LDL HDL Ratio 1.74 RATIO (0.00-3.22); Osmolality Calculated 281 mOsm/kg (285-295); Potassium 4.4 mmol/L (3.5-5.1); Sodium 135 mmol/L (136-145); Total Bilirubin 0.8 mg/dL (0.15-1.2); Total Protein 6.7 g/dL (6.6-8.7); Triglycerides 63 mg/dL (0-150)
[2022-07-26 13:53] LABS: Creatinine Urine, Random 107 mg/dL (28-217); Microalbum Creatinine Ratio Ur 9 mg/dL (0-20); Microalbumin Random Urine 1 ug/dL (0-20)
[2022-07-26 13:56] LABS: Estmated Average Glucose 174; Hemoglobin A1C 7.7 % (4.0-6.0)
== END 2022-07-26 11:37 | disposition home or self-care (01) ==
PROVIDERS: PCP Family Medicine; Visit Provider Family Medicine
DX: E11.9 Type 2 diabetes mellitus without complications (principal); K74.60 Unspecified cirrhosis of liver; E78.00 Pure hypercholesterolemia, unspecified; E03.9 Hypothyroidism, unspecified
CPT/HCPCS: 80053; 80061; 82044; 83036; 84443; 85025

== ENCOUNTER → 2022-09-11 10:02 | Outpatient (BNVA) | payer MEDICARE, MEDICAID, SELFPAY | PROVIDERS: PCP Family Medicine; Visit Provider Podiatrist Foot & Ankle Surgery | DX: M72.2 Plantar fascial fibromatosis (principal); M21.371 Foot drop, right foot | CPT/HCPCS: 99213 ==

== ENCOUNTER 2022-10-15 15:51 | Outpatient (CLI) | payer MEDICARE, MEDICAID, SELFPAY | END 2022-10-15 15:52 | disposition home or self-care (01) | LOC: SPT 15:52 | PROVIDERS: PCP Family Medicine; Visit Provider Podiatrist Foot & Ankle Surgery | DX: Z46.89 Encounter for fitting and adjustment of other specified devices (principal); M72.2 Plantar fascial fibromatosis; M21.371 Foot drop, right foot | CPT/HCPCS: 97760; L3030 ==

== ENCOUNTER 2022-10-18 07:00 | Outpatient (CLI) | payer MEDICARE, MEDICAID, SELFPAY ==
--- NOTE | 2022-10-18 | USR_ITS ---
PROCEDURE INFORMATION: Exam: US Abdomen; Limited Exam date and time: 10/18/2022 7:12 AM Age: 66 years old Clinical indication: Condition or disease; Liver condition; Cirrhosis TECHNIQUE: Imaging protocol: Real time ultrasound of the abdomen with image documentation. Limited exam focused on the region of clinical interest. COMPARISON: US abdomen complete* [id number] 12/28/2021 7:05 AM FINDINGS: Liver: The liver demonstrates a heterogenous coarse echotexture with a nodular contour. No ultrasound evident mass identified. Gallbladder: Gallbladder is surgically absent. Pancreas: Partially visualized pancreas is unremarkable. Right kidney: The right kidney is unremarkable. Aorta: The aorta is not well visualized due to overlying bowel gas. Portal venous: Portal vein is patent with appropriate hepatopetal flow. US/US abdomen limited [id number] IMPRESSION: Hepatic cirrhosis.
== END 2022-10-18 07:01 | disposition home or self-care (01) ==
LOC: RAD 07:02
PROVIDERS: PCP Family Medicine; Visit Provider Internal Medicine Gastroenterology
DX: K74.60 Unspecified cirrhosis of liver (principal); I85.00 Esophageal varices without bleeding; R18.8 Other ascites; K21.9 Gastro-esophageal reflux disease without esophagitis; K72.90 Hepatic failure, unspecified without coma
CPT/HCPCS: 76705

== ENCOUNTER → 2022-12-11 09:58 | Outpatient (BNVA) | payer MEDICARE, MEDICAID, SELFPAY | PROVIDERS: PCP Family Medicine; Visit Provider Podiatrist Foot & Ankle Surgery | DX: M72.2 Plantar fascial fibromatosis (principal) | CPT/HCPCS: 99213 ==

== ENCOUNTER → 2023-01-22 09:43 | Outpatient (BNVA) | payer MEDICARE, MEDICAID, SELFPAY | PROVIDERS: PCP Family Medicine; Visit Provider Podiatrist Foot & Ankle Surgery | DX: M72.2 Plantar fascial fibromatosis (principal) | CPT/HCPCS: 99213 ==

== ENCOUNTER 2023-01-28 09:17 | Outpatient (CLI) | payer MEDICARE, MEDICAID, SELFPAY ==
[2023-01-28 09:37] LABS: Basophils % 0.6 %; Eosinophils # 0.3 10^3/uL (0.0-0.8); Eosinophils % 3.9 %; Hematocrit 33.5 % (36-47); Lymphocytes # 0.8 10^3/uL (0.8-4.8); Lymphocytes % 12.8 %; Mean Corpuscular HGB Conc 33.1 g/dL (30-55); Mean Corpuscular Hemoglobin 28.7 pg (27-33); Mean Corpuscular Volume 86.6 fl (85-98); Mean Platelet Volume 12.6 fL (7.4-10.4); Monocytes # 0.5 10^3/uL (0.2-0.9); Monocytes % 8.2 %; Neutrophils # 4.71 10^3/uL (1.8-7.7); Neutrophils % 74.3 %; Nucleated Red Blood Cells % 0 %; Platelet Count 84 10^3/cmm (157-399); Red Blood Count 3.87 10^6/uL (3.85-5.65); Red Cell Distribution Width 13.8 % (12.1-15.1); White Blood Count 6.34 10^3/uL (3.29-11.43)
[2023-01-28 10:04] LABS: Alanine Aminotransferase 31 U/L (0-33); Albumin Level 4.1 g/dL (3.5-5.2); Alkaline Phosphatase 137 U/L (35-105); Anion Gap 16.6 (5-19); Aspartate Amino Transferase 32 U/L (0-32); Blood Urea Nitrogen 13 mg/dL (8-23); Calcium 10.4 mg/dL (8.5-10.5); Carbon Dioxide 24 mmol/L (22-29); Chloride 103 mmol/L (98-107); Chol HDL Ratio 5.09 mg/dL (0.0-4.40); Cholesterol 219 mg/dL (0-200); Globulin 2.7 g/dL (1.3-4.6); Glucose 184 mg/dL (65-115); HDL Cholesterol 43 mg/dL (60-100); LDL Cholesterol Calculated 148 mg/dL (50-129); Osmolality Calculated 293 mOsm/kg (285-295); Potassium 4.6 mmol/L (3.5-5.1); Sodium 139 mmol/L (136-145); Thyroid Stimulating Hormone 2.07 uIU/mL (0.27-4.20); Total Bilirubin 0.7 mg/dL (0.15-1.2); Total Protein 6.8 g/dL (6.6-8.7); Triglycerides 141 mg/dL (0-150); VLDL Cholestrol Calculation 28 mg/dL (0-30)
[2023-01-28 10:04] LABS: Creatinine Urine, Random 80 mg/dL (28-217); Microalbum Creatinine Ratio Ur 13 mg/dL (0-20); Microalbumin Random Urine 1 ug/dL (0-20)
[2023-01-28 10:06] LABS: Estmated Average Glucose 220; Hemoglobin A1C 9.3 % (4.0-6.0)
== END 2023-01-28 09:18 | disposition home or self-care (01) ==
LOC: LAB 09:18
PROVIDERS: PCP Family Medicine; Visit Provider Family Medicine
DX: E11.9 Type 2 diabetes mellitus without complications (principal); K75.81 Nonalcoholic steatohepatitis (NASH); D64.9 Anemia, unspecified; E03.9 Hypothyroidism, unspecified
CPT/HCPCS: 36415; 80053; 80061; 82044; 83036; 84443; 85025

== ENCOUNTER → 2023-04-09 11:10 | Outpatient (BNVA) | payer MEDICARE, MEDICAID, SELFPAY | PROVIDERS: PCP Family Medicine; Visit Provider Podiatrist Foot & Ankle Surgery | DX: M72.2 Plantar fascial fibromatosis (principal) | CPT/HCPCS: 99213 ==

== ENCOUNTER 2023-08-14 16:50 | Emergency (ER) | payer MEDICARE, MEDICAID, SELFPAY ==
[2023-08-14 16:51] VITALS: BP 158/64; PULSE 71; RESP 16; TEMP 36.8; O2SAT 95; BMI 39.9
--- NOTE | 2023-08-14 18:29 | ED_ITS ---
HPI - Abdominal Pain 2 General: Chief Complaint: Abdominal Pain Stated Complaint: abd pain Time Seen by Provider: 08/14/23 18:26 History of Present Illness: 67-year-old female comes in today for co mplaints of generalized abdominal pain. Patient reports worsening pain over the last 4 to 5 days. Patient states that she had been on amoxicillin for urinary tract infection last week when the pain started. On exam patient appears nontoxic. Patient appears no acute distress. Patient has had a cholecystectomy, appendectomy, and hysterectomy. Patient does report a history of diverticulosis. Patient denies any other complaints at this time. Patient reports no diarrhea or constipation. Patient reports no vomiting but some nausea. 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 Obstructive sleep apnea Type 2 diabetes mellitus Surgical History History of appendectomy History of back surgery x 5 History of x 3 History of carpal tunnel release of both wrists History of colonoscopy (~07/2019) History of esophagogastroduodenoscopy EGD with esophageal banding History of hysterectomy with unilateral oophorectomy History of laparoscopic cholecystectomy Family History Denies family history of Anesthesia complication Bleeding disorder Social History Smoking and tobacco/nicotine status: never used tobacco/nicotine Physical Exam 2 Const: COMMON NORMALS: alert HENMT: COMMON NORMALS: normocephalic HEAD & SCALP: normocephalic Neck/C-Spine: COMMON NORMALS: full ROM Resp: COMMON NORMALS: normal respiratory effort and clear to auscultation bilaterally AUSCULTATION: clear to auscultation bilaterally Cardio: COMMON NORMALS: regular rate and regular rhythm RATE: regular rate RHYTHM: regular rhythm GI: COMMON NORMALS: Soft to palpation AUSCULTATION: Yes normoactive bowel sounds PALPATION: Yes Soft to palpation and Yes Tenderness to palpation present (GI) Back/Pelvis: COMMON NORMALS: thoracic and lumbar spine normal to inspection Extremity: COMMON NORMALS: full ROM Neuro: SENSORIUM/ORIENTATION: Yes alert Skin: COMMON NORMALS: turgor normal GENERAL SKIN EXAM: turgor normal Course 2 Vital Signs: Vital signs: Vital Signs Temperature 98.2 F 08/14/23 16:51 Pulse Rate 71 08/14/23 20:30 Respiratory Rate 16 08/14/23 20:30 Blood Pressure 160/69 08/14/23 20:30 Pulse Oximetry 97 08/14/23 20:30 Oxygen Delivery Me thod Room Air 08/14/23 20:30 MDM - Abdominal Pain Medical Decision Making 67-year-old female comes in today for complaints of generalized abdominal pain. On exam patient's abdomen is soft with generalized tenderness. Bowel sounds are active. Skin is warm and dry. Vital signs are normal except for some mild elevation of blood pressure. Differential diagnosis includes not limited to bowel obstruction, diverticulitis, pyelonephritis, pancreatitis. CBC noted a hemoglobin of 10.1. CMP showed a sodium 133 and glucose of 234. CT of the abdomen pelvis noted some edema to the duodenum and gastric folds may be suggesting a duodenitis with gastritis. Patient also has some significant cirrhosis with portal hypertension. Reviewed exam with patient recommended pantoprazole for the next 2 weeks and then recommended EGD for further evaluation of endoscopy. Patient reports that she is scheduled to have one done at 01 October. I discussed need for pantoprazole and recommended follow-up with primary care in 2 weeks to discuss other options and earlier endoscopy if necessary. Patient reported understanding agreed to plan. Lab Data 08/14/23 18:50 08/14/23 18:50 Labs/Radiology: Radiology Impressions Abdomen/Pelvis CT 08/14/23 18:36 IMPRESSION: 1. Exam demonstrates severe edema the entire duodenum suggesting duodenitis. In addition, there is gastric fold thickening which may reflect gastritis. No visible ulcer or mass. 2. Cirrhosis with features of portal hypertension including splenomegaly. No significant esophageal or gastric varices are appreciated. Laboratory Results WBC 7.91 10^3/uL (3.29-11.43) 08/14/23 18:50 RBC 3.76 10^6/uL (3.85-5.65) L 08/14/23 18:50 Hgb 10.10 g/dL (11.27-16.99) L 08/14/23 18:50 Hct 31.3 % (36-47) L 08/14/23 18:50 MCV 83.2 fl (85-98) L 08/14/23 18:50 MCH 26.9 pg (27-33) L 08/14/23 18:50 MCHC 32.3 g/dL (30-55) 08/14/23 18:50 RDW 15.8 % (12.1-15.1) H 08/14/23 18:50 Plt Count 93 10^3/cmm (157-399) L 08/14/23 18:50 MPV 12.6 fL (7.4-10.4) H 08/14/23 18:50 Neut % (Auto) 74.8 % 08/14/23 18:50 Lymph % (Auto) 12.0 % 08/14/23 18:50 Long % (Auto) 7.6 % 08/14/23 18:50 Eos % (Auto) 4.6 % 08/14/23 18:50 Baso % (Auto) 0.5 % 08/14/23 18:50 Neut # (Auto) 5.92 10^3/uL (1.8-7.7) 08/14/23 18:50 Lymph # (Auto) 1.0 10^3/uL (0.8-4.8) 08/14/23 18:50 Long # (Auto) 0.6 10^3/uL (0.2-0.9) 08/14/23 18:50 Eos # (Auto) 0.4 10^3/uL (0.0-0.8) 08/14/23 18:50 Baso # (Auto) 0.0 10^3/uL (0.0-0.1) 08/14/23 18:50 Nucleated RBC % (auto) 0 % 08/14/23 18:50 Nucleated RBCs # 0.0 /100WBC 08/14/23 18:50 Sodium 133 mmol/L (136-145) L 08/14/23 18:50 Potassium 5.0 mmol/L (3.5-5.1) 08/14/23 18:50 Chloride 99 mmol/L (98-107) 08/14/23 18:50 Carbon Dioxide 19 mmol/L (22-29) L 08/14/23 18:50 Anion Gap 20.0 (5-19) H 08/14/23 18:50 BUN 9 mg/dL (8-23) 08/14/23 18:50 Creatinine 0.8 mg/dL (0.5-0.9) 08/14/23 18:50 GFR Calculation 72.0 mL/min (90-130) L 08/14/23 18:50 Glucose 234 mg/dL (65-115) H 08/14/23 18:50 Calculated Osmolality 282 mOsm/kg (285-295) L 08/14/23 18:50 Calcium 10.0 mg/dL (8.5-10.5) 08/14/23 18:50 Total Bilirubin 1.0 mg/dL (0.15-1.2) 08/14/23 18:50 AST 47 U/L (0-32) H 08/14/23 18:50 ALT 37 U/L (0-33) H 08/14/23 18:50 Alkaline Phosphatase 149 U/L (35-105) H 08/14/23 18:50 Total Protein 7.2 g/dL (6.6-8.7) 08/14/23 18:50 Albumin 4.0 g/dL (3.5-5.2) 08/14/23 18:50 Globulin 3.2 g/dL (1.3-4.6) 08/14/23 18:50 Lipase 62 U/L (13-60) H 08/14/23 18:50 All radiology interpretation(s) finalized by discharge Discharge Plan Discharge Patient Disposition: Home Clinical Impression: Duodenitis Condition: Stable Prescriptions: No Action spironolactone 50 mg tablet 50 mg PO BID pantoprazole [Protonix] 40 mg tablet,delayed release (DR/EC) 40 mg PO DAILY PRN omeprazole 10 mg capsule,delayed release(DR/EC) 10 mg PO DAILY (DME) Custom Insoles See Rx Instructions .Route .MEDSUPPLY Qty: 1 0RF Rx Instructions: As directed metformin 500 mg tablet See Rx Instructions .ROUTE .COMPLEX Rx Instructions: 500mg po qam and 1000mg po bedtime levothyroxine 25 mcg tablet 25 mcg PO DAILY lactulose 10 gram/15 mL solution See Rx Instructions .ROUTE .COMPLEX Rx Instructions: 2 tablespoons po prn Januvia 50 mg tablet 50 mg PO DAILY Xifaxan 550 mg tablet 550 mg PO BID Probiotic 1 cap PO DAILY PRN (Reason: gut health) ondansetron 4 mg tablet,disintegrating 4 mg PO Q6H PRN (Reason: nausea and vomiting) Qty: 14 0RF glipizide 5 mg tablet extended release 24hr 5 mg PO DAILY hydrocodone-acetaminophen 5-325 mg tablet 1 tab PO Q6H PRN (Reason: pain) Qty: 10 0RF Discharge Orders: Discharge ED (Routine); Ordered 08/14/23 Ordered By: Feliberto Slater Referrals: Kami Mcgee MD [Primary Care Provider] - Discharge Diet: Usual diet Discharge Activity: Increase activity as tolerated Patient Instructions: Duodenitis (ED) Activity Restrictions/Additional Instructions: Take pantoprazole 40 mg daily for the next 2 weeks. Follow-up with primary care. You need to have a upper endoscopy procedure done for further evaluation and treatment. Return to ED for new concerns or worsening symptoms such as high fever, blood in vomit or stool. Coding Level of Care Code ED Wound Care Coordinator for Roberta Valdes
--- NOTE | 2023-08-14 18:36 | CTR_ITS ---
PROCEDURE INFORMATION: Exam: CT Abdomen And Pelvis With Contrast Exam date and time: 08/14/2023 7:49 PM Age: 67 years old Clinical indication: Abdominal pain; Generalized; Prior surgery; Surgery date: 6+ months; Surgery type: Appy, gb, csections, hyst, 5 low back surgeries; Additional info: Diffuse abd pain TECHNIQUE: Imaging protocol: Computed tomography of the abdomen and pelvis with contrast. Radiation optimization: All CT scans at this facility use at least one of these dose optimization techniques: automated exposure control; mA and/or kV adjustment per patient size (includes targeted exams where dose is matched to clinical indication); or iterative reconstruction. Contrast material: OMNI 350; Contrast volume: 100 ml; Contrast route: INTRAVENOUS (IV); COMPARISON: CT abdomen pelvis w con* [id number] 01/14/2020 8:51 PM RADIATION DOSE METRICS: Total DLP (mGy-cm): 852.42 FINDINGS: Lungs: Clear basilar lung parenchyma. Pleural spaces: No pleural fluid. Heart: Normal heart size. Diaphragm: Small sliding hiatal hernia. Liver: Cirrhotic morphology of the liver. No discrete hepatic mass. Liver measures 14.3 cm in length. Gallbladder and bile ducts: Prior cholecystectomy. No biliary tree dilation or high-density retained stones appreciated. Pancreas: Pancreas is normal in contour without visible edema, mass, or ductal dilation. Spleen: Spleen measures 17.1 cm in length. Adrenal glands: Normal configuration. Kidneys and ureters: Kidneys enhance symmetrically and demonstrate no evidence of mass, calculus, obstruction, or inflammation. Stomach and bowel: Diffuse thickening of the gastric folds without visible ulcer. There is severe diffuse edema the entire duodenum with edema extending into the mesenteric root. Fluid-filled stomach. No small bowel dilation. There is diverticulosis in the distal colon without evidence of acute diverticulitis. Low-density mural thickening of the ascending colon likely reflects portal colopathy. Appendix: Prior appendectomy. Intraperitoneal space: See Stomach and bowel finding. Vasculature: Recanalized umbilical vein. Mild aortoiliac calcific atherosclerosis without aneurysm. Enlarged but patent portal vein. Lymph nodes: Numerous non pathologically enlarged gastrohepatic ligament and periportal lymph nodes are stable when compared to prior exam several years ago. Urinary bladder: Unremarkable as visualized. Reproductive: Prior hysterectomy. No evidence of vaginal cuff or adnexal mass. Bones/joints: Mild lower lumbar degenerative disc disease. Adequate spinal canal. There is bilateral neural foraminal stenosis at L4-L5. Mild bilateral hip arthropathy. No findings to suggest avascular necrosis. Soft tissues: Unremarkable. CT/CT abdomen pelvis w con* [id number] IMPRESSION: 1. Exam demonstrates severe edema the entire duodenum suggesting duodenitis. In addition, there is gastric fold thickening which may reflect gastritis. No visible ulcer or mass. 2. Cirrhosis with features of portal hypertension including splenomegaly. No significant esophageal or gastric varices are appreciated.
[2023-08-14] MEDS: sodium chloride 0.9% 500 ML IV (19:13)
[2023-08-14] MEDS: ondansetron 2 mg/ML SDV 2 mL 4 MG IVP (19:13)
[2023-08-14 19:25] LABS: Basophils % 0.5 %; Eosinophils # 0.4 10^3/uL (0.0-0.8); Eosinophils % 4.6 %; Hematocrit 31.3 % (36-47); Mean Corpuscular HGB Conc 32.3 g/dL (30-55); Mean Corpuscular Hemoglobin 26.9 pg (27-33); Mean Corpuscular Volume 83.2 fl (85-98); Mean Platelet Volume 12.6 fL (7.4-10.4); Monocytes # 0.6 10^3/uL (0.2-0.9); Monocytes % 7.6 %; Neutrophils # 5.92 10^3/uL (1.8-7.7); Neutrophils % 74.8 %; Nucleated Red Blood Cells % 0 %; Platelet Count 93 10^3/cmm (157-399); Red Blood Count 3.76 10^6/uL (3.85-5.65); Red Cell Distribution Width 15.8 % (12.1-15.1); White Blood Count 7.91 10^3/uL (3.29-11.43)
[2023-08-14 19:37] LABS: Alanine Aminotransferase 37 U/L (0-33); Alkaline Phosphatase 149 U/L (35-105); Aspartate Amino Transferase 47 U/L (0-32); Blood Urea Nitrogen 9 mg/dL (8-23); Carbon Dioxide 19 mmol/L (22-29); Chloride 99 mmol/L (98-107); Creatinine Clr Calc Pharmacy 95.8862; Globulin 3.2 g/dL (1.3-4.6); Glucose 234 mg/dL (65-115); Lipase 62 U/L (13-60); Osmolality Calculated 282 mOsm/kg (285-295); Sodium 133 mmol/L (136-145); Total Protein 7.2 g/dL (6.6-8.7)
[2023-08-14] MEDS: iohexol 350 mg/mL 500 mL Btl (per mL) IV (19:52)
[2023-08-14 20:28] VITALS: BP 173/74; PULSE 77; RESP 16; O2SAT 97
[2023-08-14 20:30] VITALS: BP 160/69; PULSE 71; RESP 16; O2SAT 97
[2023-08-14] MEDS: metoclopramide 5 mg/mL SDV 2 mL 10 MG IVP (21:13)
[2023-08-14] MEDS: pantoprazole 40 mg SDV IVP (21:13)
[2023-08-14 21:39] VITALS: BP 126/50; PULSE 70; RESP 16; O2SAT 96
== END 2023-08-14 21:40 | disposition home or self-care (01) ==
PROVIDERS: Emergency Provider Nurse Practitioner Family; PCP Family Medicine
DX: K29.80 Duodenitis without bleeding (principal); Z79.84 Long term (current) use of oral hypoglycemic drugs; E78.5 Hyperlipidemia, unspecified; I10 Essential (primary) hypertension; E11.9 Type 2 diabetes mellitus without complications
CPT/HCPCS: 74177; 80053; 83690; 85025; 96361; 96374; 96375; 99285; C9113; J2405; J2765; J7040; Q9967

== ENCOUNTER → 2023-08-19 13:40 | Outpatient (CLI) | payer MEDICARE, MEDICAID, SELFPAY ==
--- NOTE | 2023-08-19 13:41 | MM_ITS ---
WS: [id number] DIAGNOSTIC BILATERAL DIGITAL BREAST TOMOSYNTHESIS MAMMOGRAPHY WITH CAD LEFT breast ultrasound, limited HISTORY: MASTODYNIA/LEFT BREAST PAIN COMPARISON: 06/24/2022, 02/05/2021 TECHNIQUE: Bilateral craniocaudad, mediolateral oblique, and mediolateral views are submitted with to mosynthesis and SM. Spot compression LEFT CC and MLO. Computer aided detection utilized. Breast composition: There are scattered areas of fibroglandular density. Marker is placed along the m edial LEFT breast near 9:00 at the site of pain. There is no underlying mass or abnormality. Bilatera l benign calcifications within each breast. LEFT breast ultrasound, limited. No mass or distortion or shadowing noted in the LEFT breast at 8:00 at the site of pain. MM/[place] [id number] IMPRESSION: BI-RADS: 2-Benign FOLLOW UP: 1 Year Follow-up
== END | disposition home or self-care (01) ==
LOC: RAD 13:40
PROVIDERS: PCP Family Medicine; Visit Provider Family Medicine
DX: N64.4 Mastodynia (principal); R92.323 Mammographic fibroglandular density, bilateral breasts; R92.1 Mammographic calcification found on diagnostic imaging of breast
CPT/HCPCS: 76642; 77062; G0279

== ENCOUNTER 2023-12-04 22:07 | Emergency (ER) | payer MEDICARE, MEDICAID, SELFPAY ==
[2023-12-04 22:09] VITALS: BP 149/71; PULSE 95; RESP 20; TEMP 37.2; O2SAT 98; BMI 41.8
--- NOTE | 2023-12-04 22:22 | XRR_ITS ---
PROCEDURE INFORMATION: Exam: XR Chest Exam date and time: 12/04/2023 11:02 PM Age: 67 years old Clinical indication: Other: Fatigue, nausea TECHNIQUE: Imaging protocol: Radiologic exam of the chest. Views: 1 view. COMPARISON: CR XR chest 1V portable [id number] 05/28/2021 1:06 AM FINDINGS: Lungs: No consolidation. Pleural spaces: No pleural effusion. No pneumothorax. Heart/Mediastinum: Stable cardiac contour. Bones/joints: No acute findings. XR/XR chest 1V portable [id number] IMPRESSION: No acute chest findings.
--- NOTE | 2023-12-04 22:22 | ECG_ITS ---
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 Measurements Intervals [place] Rate: 89 P: 49 AL: 169 QRS: -13 QRSD: 82 T: 66 QT: 368 QTc: 448 Interpretive Statements SINUS RHYTHM POSSIBLE LEFT ATRIAL ENLARGEMENT [-0.1mV P-WAVE IN V1/V2] LOW QRS VOLTAGE IN PRECORDIAL LEADS [QRS DEFLECTION < 1.0 mV IN CHEST LEADS] POSSIBLE ANTERIOR MYOCARDIAL INFARCTION , OF INDETERMINATE AGE [30 ms Q WAVE IN V3/V4, OR R < 0.2 mV IN V4] Compared to ECG 03/26/2015 11:45:57 Myocardial infarct finding now present T-wave abnormality no longer present Possible ischemia no longer present Electronically Signed On 12-06-2023 20:52:59 CDT by Jeane Amaral M.D. [email or web address]
[2023-12-04 22:44] VITALS: BP 149/71; PULSE 88; RESP 16; O2SAT 95
[2023-12-04 22:47] LABS: Bilirubin Urine Negative (Negative); Blood Urine 2+ (Negative); Glucose Urine UA Negative (Normal); Ketones Urine Negative (Negative); Leukocyte Esterase Urine 3+ (Negative); Nitrate Urine Positive (Negative); Protein Urine 1+ (Negative); Specific Gravity, Urine 1.017 (1.005-1.030); Urine Appearance Cloudy (CLEAR); Urine Color Dark Yellow (Yellow); pH Urine 5.5 (5-7)
--- NOTE | 2023-12-04 22:48 | W.ED.FALL ---
HPI - Fall General: Chief Complaint: Fall Stated Complaint: Fall Time Seen by Provider: 12/04/23 22:09 History of Present Illness: Patient presents to the ER with complaint of bleeding over the dog he supplies and she, lost her balance and slid down the wall. Patient does states has been having more back pain as well this shortness of breath with nausea for the last several days. Patient denies any chest pain. Related Data Home Medications Medication Instructions Recorded Confirmed Probiotic 1 cap PO DAILY PRN gut health 01/14/20 04/09/23 lactulose 10 gram/15 mL oral See Rx Instructions .Route .COMPLEX 01/14/20 04/09/23 solution levothyroxine 25 mcg tablet 25 mcg PO DAILY 01/14/20 04/09/23 metformin 500 mg tablet See Rx Instructions .Route .COMPLEX 01/14/20 04/09/23 rifaximin 550 mg tablet (Xifaxan) 550 mg PO BID 01/14/20 04/09/23 sitagliptin phosphate 50 mg tablet 50 mg PO DAILY 01/14/20 04/09/23 (Januvia) spironolactone 50 mg tablet 50 mg PO BID 01/04/21 04/09/23 omeprazole 10 mg capsule,delayed 10 mg PO DAILY 11/14/21 04/09/23 release glipizide 5 mg tablet, extended 5 mg PO DAILY 01/01/22 04/09/23 release 24 hr pantoprazole 40 mg tablet,delayed 40 mg PO DAILY PRN 01/01/22 04/09/23 release (Protonix) Previous Rx's Medication Instructions Recorded ondansetron 4 mg disintegrating 4 mg PO Q6H PRN nausea and 01/14/20 tablet vomiting #14 tabs hydrocodone 5 mg-acetaminophen 325 1 tab PO Q6H PRN pain #10 tabs 07/02/21 mg tablet Custom Insoles #1 ea 09/11/22 ondansetron HCl 4 mg tablet 4 mg PO Q8H PRN nausea and 12/05/23 vomiting #14 tabs sulfamethoxazole 800 1 tab PO BID #14 tabs 12/05/23 mg-trimethoprim 160 mg tablet (Bactrim DS) Allergies Allergy/AdvReac Type Severity Reaction Status Date / Time acetaminophen [From Percocet] Allergy ALGY-Swell Verified 04/09/23 11:18 Lip/Tongue/Throat carisoprodol [From Soma] Allergy ADR-Irritab Verified 04/09/23 11:18 le cefuroxime [From Ceftin] Allergy ALGY-Difficulty Verified 04/09/23 11:18 Breathing ciprofloxacin [From Cipro] Allergy ADR-Itching Verified 04/09/23 11:18 codeine Allergy ADR-Itching Verified 04/09/23 11:18 gabapentin [From Neurontin] Allergy ALGY-Wheezi Verified 04/09/23 11:18 ng NSAIDS (Non-Steroidal Allergy ALGY-Swell Verified 04/09/23 11:18 Anti-Inflamma Lip/Tongue/Throat oxaprozin [From Daypro] Allergy ADR-Itching Verified 04/09/23 11:18 oxycodone [From Percocet] Allergy ALGY-Swell Verified 04/09/23 11:18 Lip/Tongue/Throat pregabalin [From Lyrica] Allergy ALGY-Swell Verified 04/09/23 11:18 Lip/Tongue/Throat tramadol [From Ultram] Allergy ADR-Itching Verified 04/09/23 11:18 Review of Systems General: Reports: 10 or more systems reviewed and unremarkable except in HPI and below PFSH ED PFSH: Medical History Iron deficiency anemia 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 Obstructive sleep apnea Hypothyroidism Hyperlipidemia Type 2 diabetes mellitus Hypertension Surgical History History of esophagogastroduodenoscopy EGD with esophageal banding History of hysterectomy with unilateral oophorectomy History of laparoscopic cholecystectomy History of back surgery x 5 History of colonoscopy (~07/2019) History of x 3 History of appendectomy History of carpal tunnel release of both wrists Family History Denies family history of Anesthesia complication Bleeding disorder Social History Smoking and tobacco/nicotine status: never used tobacco/nicotine Physical Exam Const: COMMON NORMALS: no acute distress, average body habitus, patient oriented x3, no limitations, healthy appearing, alert and well nourished HENMT: COMMON NORMALS: normocephalic, atraumatic, hearing grossly normal bilaterally, external ears normal, Normal external nose present and moist oral mucous membranes HEAD & SCALP: normocephalic and atraumatic NOSE: Normal external nose present EXTERNAL EAR: Yes external ears normal Neck/C-Spine: COMMON NORMALS: no JVD Chest: COMMONS NORMALS: normal inspection of the chest and normal palpation of entire chest wall Resp: COMMON NORMALS: normal respiratory effort, No retractions, No use of accessory muscles and clear to auscultation bilaterally AUSCULTATION: clear to auscultation bilaterally Cardio: COMMON NORMALS: no JVD, regular rate, regular rhythm, S1 normal heart sound present, S2 normal heart sound present, No gallops present (Cardio), No clicks present (Cardio), No murmurs present (Cardio) and No rub (Cardio) RATE: regular rate RHYTHM: regular rhythm HEART SOUNDS: S1 normal heart sound present and S2 normal heart sound present GI: COMMON NORMALS: Normal to inspection, nondistended, normoactive bowel sounds present, Soft to palpation, non-tender, No hepatosplenomegaly present and no masses PALPATION: Yes Soft to palpation and Yes No hepatosplenomegaly present Neuro: COMMON NORMALS: patient oriented x3 SENSORIUM/ORIENTATION: Yes alert Course Vital Signs: Vital signs: Vital Signs Temperature 99 F 12/04/23 22:09 Pulse Rate 88 12/04/23 22:44 Respiratory Rate 16 12/04/23 22:44 Blood Pressure 149/71 12/04/23 22:44 Pulse Oximetry 95 12/04/23 22:44 Oxygen Delivery Me thod Room Air 12/04/23 22:44 MDM - Fall Medical Decision Making Patient's workup showed she had an elevated white count 13.5, positive urinary tract infection, chest x-ray showed no acute findings, patient was given Zofran 4 mg p.o. and Bactrim DS p.o. here in ER and will be sent home with these prescriptions well. Patient to follow-up with her PCP in approximately 7 days. Medical Records I reviewed the patient's medical records. Lab Data I reviewed the patient's lab results. 12/04/23 23:14 12/04/23 23:14 Radiology Impressions Chest X-Ray 12/04/23 22:22 IMPRESSION: No acute chest findings. Laboratory Results WBC 13.55 10^3/uL (3.29-11.43) H 12/04/23 23:14 RBC 3.61 10^6/uL (3.85-5.65) L 12/04/23 23:14 Hgb 10.90 g/dL (11.27-16.99) L 12/04/23 23:14 Hct 32.3 % (36-47) L 12/04/23 23:14 MCV 89.5 fl (85-98) 12/04/23 23:14 MCH 30.2 pg (27-33) 12/04/23 23:14 MCHC 33.7 g/dL (30-55) 12/04/23 23:14 RDW 14.1 % (12.1-15.1) 12/04/23 23:14 Plt Count 60 10^3/cmm (157-399) L 12/04/23 23:14 MPV 12.1 fL (7.4-10.4) H 12/04/23 23:14 Neut % (Auto) 82.8 % 12/04/23 23:14 Lymph % (Auto) 5.2 % 12/04/23 23:14 [place] % (Auto) 11.2 % 12/04/23 23:14 Eos % (Auto) 0.1 % 12/04/23 23:14 Baso % (Auto) 0.3 % 12/04/23 23:14 Neut # (Auto) 11.20 10^3/uL (1.8-7.7) H 12/04/23 23:14 Lymph # (Auto) 0.7 10^3/uL (0.8-4.8) L 12/04/23 23:14 [place] # (Auto) 1.5 10^3/uL (0.2-0.9) H 12/04/23 23:14 Eos # (Auto) 0.0 10^3/uL (0.0-0.8) 12/04/23 23:14 Baso # (Auto) 0.0 10^3/uL (0.0-0.1) 12/04/23 23:14 Nucleated RBC % (auto) 0 % 12/04/23 23:14 Nucleated RBCs # 0.0 /100WBC 12/04/23 23:14 Sodium 132 mmol/L (136-145) L 12/04/23 23:14 Potassium 4.2 mmol/L (3.5-5.1) 12/04/23 23:14 Chloride 99 mmol/L (98-107) 12/04/23 23:14 Carbon Dioxide 16 mmol/L (22-29) L 12/04/23 23:14 Anion Gap 21.2 (5-19) H 12/04/23 23:14 BUN 15 mg/dL (8-23) 12/04/23 23:14 Creatinine 1.3 mg/dL (0.5-0.9) H 12/04/23 23:14 GFR Calculation 41.1 mL/min (90-130) L 12/04/23 23:14 Glucose 308 mg/dL (65-115) H 12/04/23 23:14 Calculated Osmolality 286 mOsm/kg (285-295) 12/04/23 23:14 Calcium 9.6 mg/dL (8.5-10.5) 12/04/23 23:14 Total Bilirubin 2.0 mg/dL (0.15-1.2) H 12/04/23 23:14 AST 34 U/L (0-32) H 12/04/23 23:14 ALT 27 U/L (0-33) 12/04/23 23:14 Alkaline Phosphatase 98 U/L (35-105) 12/04/23 23:14 Creatine Kinase 236 U/L (26-192) H 12/04/23 23:14 Total Protein 6.7 g/dL (6.6-8.7) 12/04/23 23:14 Albumin 3.8 g/dL (3.5-5.2) 12/04/23 23:14 Globulin 2.9 g/dL (1.3-4.6) 12/04/23 23:14 Urine Color Dark yellow (Yellow) A 12/04/23 22:44 Urine Appearance Cloudy (CLEAR) A 12/04/23 22:44 Urine pH 5.5 (5-7) 12/04/23 22:44 Ur Specific [place] 1.017 (1.005-1.030) 12/04/23 22:44 Urine Protein 1+ (Negative) A 12/04/23 22:44 Urine Glucose (UA) Negative (Normal) 12/04/23 22:44 Urine Ketones Negative (Negative) 12/04/23 22:44 Urine Blood 2+ (Negative) A 12/04/23 22:44 Urine Nitrate Positive (Negative) A 12/04/23 22:44 Urine Bilirubin Negative (Negative) 12/04/23 22:44 Urine Urobilinogen 1.0 mg/dL (Negative) 12/04/23 22:44 Ur Leukocyte Esterase 3+ (Negative) A 12/04/23 22:44 Urine RBC 11-20 /hpf (0-2) H 12/04/23 22:44 Urine WBC >100 /hpf (0-5) H 12/04/23 22:44 Ur Squamous Epith Cells 6-10 /hpf (0-5) 12/04/23 22:44 Amorphous Sediment Not Reportable 12/04/23 22:44 Urine Bacteria 4+ /hpf (NONE) H 12/04/23 22:44 Hyaline Casts 6.61 /lpf 12/04/23 22:44 All radiology interpretation(s) finalized by discharge Discharge Plan Discharge Patient Disposition: Home Clinical Impression: Urinary tract infection Qualifiers: Urinary tract infection type: acute cystitis Hematuria presence: with hematuria Qualified Code(s): N30.01 - Acute cystitis with hematuria Nausea & vomiting Qualifiers: Vomiting type: unspecified Qualified Code(s): R11.2 - Nausea with vomiting, unspecified Condition: Stable Prescriptions: New ondansetron HCl 4 mg tablet 4 mg PO Q8H PRN (Reason: nausea and vomiting) Qty: 14 0RF sulfamethoxazole-trimethoprim [Bactrim DS] 800-160 mg tablet 1 tab PO BID Qty: 14 0RF No Action spironolactone 50 mg tablet 50 mg PO BID pantoprazole [Protonix] 40 mg tablet,delayed release (DR/EC) 40 mg PO DAILY PRN omeprazole 10 mg capsule,delayed release(DR/EC) 10 mg PO DAILY (DME) Custom Insoles See Rx Instructions .Route .MEDSUPPLY Qty: 1 0RF Rx Instructions: As directed metformin 500 mg tablet See Rx Instructions .ROUTE .COMPLEX Rx Instructions: 500mg po qam and 1000mg po bedtime levothyroxine 25 mcg tablet 25 mcg PO DAILY lactulose 10 gram/15 mL solution See Rx Instructions .ROUTE .COMPLEX Rx Instructions: 2 tablespoons po prn Januvia 50 mg tablet 50 mg PO DAILY Xifaxan 550 mg tablet 550 mg PO BID Probiotic 1 cap PO DAILY PRN (Reason: gut health) ondansetron 4 mg tablet,disintegrating 4 mg PO Q6H PRN (Reason: nausea and vomiting) Qty: 14 0RF glipizide 5 mg tablet extended release 24hr 5 mg PO DAILY hydrocodone-acetaminophen 5-325 mg tablet 1 tab PO Q6H PRN (Reason: pain) Qty: 10 0RF Discharge Orders: Discharge ED (Routine); Ordered 12/05/23 Ordered By: Jatinder Collins Referrals: Kami Mcgee MD [Primary Care Provider] - 1 week Patient Instructions: Urinary Tract Infection in Older Adults (ED) Activity Restrictions/Additional Instructions: A prescription for Zofran and Bactrim DS was called into your pharmacy. Please take them as directed. Please follow-up with your family practitioner in the next 7 days for further evaluation treatment as needed. Thank you for choosing [facility] for your healthcare needs today. Please realize that you were seen in the emergency department and that we are providing you with an emergency medical screening exam and this may not be a complete and all exclusive of all testing and/or medical workup we may need to determine your element or severity of your illness. It is very important that you follow-up as instructed with your primary care provider or specialist for the additional evaluation and to discuss your medical treatment plan. You may return to the emergency department should you have concerns or if your condition changes or worsens in any way. Coding Level of Care Code ED Still Operator for Roberta Valdes
[2023-12-04 22:52] LABS: Add Urine Microscopic? YES; Bacteria Urine 4+ /hpf; Hyaline Casts Urine 6.61 /lpf; WBC Urine >100 /hpf (0-5)
[2023-12-04 23:03] LABS: Add Urine Culture? Yes
[2023-12-04 23:28] LABS: Basophils % 0.3 %; Eosinophils % 0.1 %; Hematocrit 32.3 % (36-47); Lymphocytes # 0.7 10^3/uL (0.8-4.8); Lymphocytes % 5.2 %; Mean Corpuscular HGB Conc 33.7 g/dL (30-55); Mean Corpuscular Hemoglobin 30.2 pg (27-33); Mean Corpuscular Volume 89.5 fl (85-98); Mean Platelet Volume 12.1 fL (7.4-10.4); Monocytes # 1.5 10^3/uL (0.2-0.9); Monocytes % 11.2 %; Neutrophils % 82.8 %; Nucleated Red Blood Cells % 0 %; Platelet Count 60 10^3/cmm (157-399); Red Blood Count 3.61 10^6/uL (3.85-5.65); Red Cell Distribution Width 14.1 % (12.1-15.1); White Blood Count 13.55 10^3/uL (3.29-11.43)
[2023-12-04 23:42] LABS: Alanine Aminotransferase 27 U/L (0-33); Albumin Level 3.8 g/dL (3.5-5.2); Alkaline Phosphatase 98 U/L (35-105); Anion Gap 21.2 (5-19); Aspartate Amino Transferase 34 U/L (0-32); Blood Urea Nitrogen 15 mg/dL (8-23); Calcium 9.6 mg/dL (8.5-10.5); Carbon Dioxide 16 mmol/L (22-29); Chloride 99 mmol/L (98-107); Creatinine Clr Calc Pharmacy 61.7871; Globulin 2.9 g/dL (1.3-4.6); Glomerular Filtration Rate 41.1 mL/min (90-130); Glucose 308 mg/dL (65-115); Osmolality Calculated 286 mOsm/kg (285-295); Potassium 4.2 mmol/L (3.5-5.1); Sodium 132 mmol/L (136-145); Total Protein 6.7 g/dL (6.6-8.7)
[2023-12-05 00:14] VITALS: BP 129/69; PULSE 84; RESP 18; O2SAT 99
[2023-12-05 00:20] LABS: Creatine Phosphokinase 236 U/L (26-192)
[2023-12-05] MEDS: sulfamethoxazole-trimeth DS 160-800 mg Tablet 1 TAB PO (00:23)
[2023-12-05] MEDS: ondansetron 4 MG Tablet PO (00:41)
[2023-12-05 01:01] VITALS: BP 137/74; PULSE 77; O2SAT 95
== END 2023-12-05 01:02 | disposition home or self-care (01) ==
PROVIDERS: Emergency Provider Emergency Medicine; PCP Family Medicine
DX: N30.01 Acute cystitis with hematuria (principal); R11.2 Nausea with vomiting, unspecified; Z79.84 Long term (current) use of oral hypoglycemic drugs; E78.5 Hyperlipidemia, unspecified; E11.9 Type 2 diabetes mellitus without complications; I10 Essential (primary) hypertension
CPT/HCPCS: 36415; 71045; 80053; 81001; 82550; 85025; 87077; 87086; 87186; 93005; 99285; Q0162

== ENCOUNTER 2023-12-06 06:07 | Inpatient (IN) | payer MEDICARE, MEDICAID, SELFPAY ==
[2023-12-06] VITALS (14 sets, daily range): BP systolic 122–164; BP diastolic 61–89; PULSE 70–96; RESP 14–20; TEMP 36.4–38.2; O2SAT 94–97; BMI 45.4; BMI 37.7
[2023-12-06 06:20] LABS: Glucose Point of Care 291 mg/dL (70-110)
--- NOTE | 2023-12-06 06:30 | CTR_ITS ---
PROCEDURE INFORMATION: Exam: CT Cervical Spine Without Contrast Exam date and time: 12/06/2023 6:48 AM Age: 67 years old Clinical indication: Injury or trauma; Blunt trauma; Patient HX: EMS arrival from home for fall. C/O head and neck pain. TECHNIQUE: Imaging protocol: Computed tomography of the cervical spine without contrast. Radiation optimization: All CT scans at this facility use at least one of these dose optimization techniques: automated exposure control; mA and/or kV adjustment per patient size (includes targeted exams where dose is matched to clinical indication); or iterative reconstruction. COMPARISON: CT cervical spin wo con* [id number] 03/02/2017 1:43 PM RADIATION DOSE METRICS: Total DLP (mGy-cm): 993.1 FINDINGS: Bones: No acute fracture. Normal alignment. Mild spondylotic changes throughout, most prominent at C5-C6 level with minimal uncovertebral joint hypertrophy. No significant disc bulge or herniation. No severe spinal canal stenosis. No significant neural foraminal narrowing. Lungs: Lung apices are normal. Soft tissues: Calcifications in bilateral carotid bulbs. CT/CT cervical spin wo con* [id number] IMPRESSION: No acute findings.
--- NOTE | 2023-12-06 06:31 | XRR_ITS ---
PROCEDURE INFORMATION: Exam: XR Chest Exam date and time: 12/06/2023 6:58 AM Age: 67 years old Clinical indication: Prior surgery; Surgery date: 6+ months; Surgery type: Gb; Patient HX: C/O cough; Additional info: Dyspnea/cough TECHNIQUE: Imaging protocol: Radiologic exam of the chest. Views: 1 view. COMPARISON: CR XR chest 1V portable [id number] 12/04/2023 11:02 PM FINDINGS: Lungs: Unremarkable. No consolidation. Pleural spaces: Unremarkable. No pleural effusion. No pneumothorax. Heart/Mediastinum: Stable. Bones/joints: Unremarkable. XR/XR chest 1V portable [id number] IMPRESSION: No acute findings.
--- NOTE | 2023-12-06 06:31 | CTR_ITS ---
PROCEDURE INFORMATION: Exam: CT Head Without Contrast Exam date and time: 12/06/2023 6:48 AM Age: 67 years old Clinical indication: Injury or trauma; Blunt trauma (contusions or hematomas); Patient HX: EMS arrival from home for fall. C/O head and neck pain. TECHNIQUE: Imaging protocol: Computed tomography of the head without contrast. Radiation optimization: All CT scans at this facility use at least one of these dose optimization techniques: automated exposure control; mA and/or kV adjustment per patient size (includes targeted exams where dose is matched to clinical indication); or iterative reconstruction. COMPARISON: CT head wo con* [id number] 03/02/2017 1:37 PM RADIATION DOSE METRICS: Total DLP (mGy-cm): 1115 FINDINGS: Brain: No hemorrhage. Chronic small vessel ischemic changes patent mild hypodensities in white matter. No mass effect. Cerebral ventricles: No ventriculomegaly. Paranasal sinuses: Visualized sinuses are unremarkable. No fluid levels. Mastoid air cells: Visualized mastoid air cells are well aerated. Bones: Unremarkable. No acute fracture. Soft tissues: Unremarkable. CT/CT head wo con* [id number] IMPRESSION: No acute intracranial abnormality.
[2023-12-06 06:52] LABS: Basophils % 0.2 %; Lymphocytes # 0.5 10^3/uL (0.8-4.8); Lymphocytes % 4.4 %; Mean Corpuscular HGB Conc 34.7 g/dL (30-55); Mean Corpuscular Hemoglobin 30.4 pg (27-33); Mean Corpuscular Volume 87.6 fl (85-98); Monocytes # 0.7 10^3/uL (0.2-0.9); Monocytes % 6.9 %; Neutrophils # 9.31 10^3/uL (1.8-7.7); Neutrophils % 88.1 %; Nucleated Red Blood Cells % 0 %; Platelet Count 74 10^3/cmm (157-399); Red Blood Count 3.88 10^6/uL (3.85-5.65); Red Cell Distribution Width 14.2 % (12.1-15.1); White Blood Count 10.57 10^3/uL (3.29-11.43)
[2023-12-06 06:54] LABS: Bilirubin Urine Negative (Negative); Blood Urine 1+ (Negative); Glucose Urine UA Negative (Normal); Ketones Urine 1+ (Negative); Leukocyte Esterase Urine 1+ (Negative); Nitrate Urine Negative (Negative); Protein Urine 1+ (Negative); Specific Gravity, Urine 1.018 (1.005-1.030); Urine Appearance Clear (CLEAR); Urine Color Dark Yellow (Yellow)
[2023-12-06 06:56] LABS: Add Urine Microscopic? YES; Bacteria Urine None Seen /hpf; RBC Urine 0-2 /hpf (0-2); Squamous Epithelial Cell Urine 0-5 /hpf (0-5); WBC Urine 21-50 /hpf (0-5)
[2023-12-06 07:11] LABS: Add Urine Culture? Yes
[2023-12-06 07:24] LABS: Alanine Aminotransferase 31 U/L (0-33); Albumin Level 3.8 g/dL (3.5-5.2); Alkaline Phosphatase 90 U/L (35-105); Blood Urea Nitrogen 14 mg/dL (8-23); Calcium 9.5 mg/dL (8.5-10.5); Carbon Dioxide 18 mmol/L (22-29); Chloride 95 mmol/L (98-107); Creatinine Clr Calc Pharmacy 70.2829; Globulin 3.1 g/dL (1.3-4.6); Glomerular Filtration Rate 45.1 mL/min (90-130); Glucose 280 mg/dL (65-115); Osmolality Calculated 277 mOsm/kg (285-295); Sodium 128 mmol/L (136-145); Total Protein 6.9 g/dL (6.6-8.7)
[2023-12-06 07:25] LABS: Lactic Sepsis W/Reflex 3.5 mmol/L (0.5-2.2)
[2023-12-06 07:29] LABS: Anion Gap 19.8 (5-19); Aspartate Amino Transferase 91 U/L (0-32); Potassium 4.8 mmol/L (3.5-5.1)
--- NOTE | 2023-12-06 07:38 | W.ED.FALL ---
HPI - Fall General: Chief Complaint: Fall Stated Complaint: Fall Time Seen by Provider: 12/06/23 06:08 History of Present Illness: 67-year-old female presents emergency room complaining of head and neck pain although she did mention to back pain to the nurse as well. She had fallen 2 days ago was seen in the emergency room evaluation at that time was unremarkable she reportedly fell again since then. She reports she fell around 9:00 last time he had hard time getting up was unable to come in until this morning. She arrives by EMS. She denies losing consciousness. When she was seen on the evening of December 03 of this year patient did have a urinary tract infection and was given Bactrim DS. Labs from that visit were were reviewed. Associated symptoms-after fall: Reports headache(s) and neck pain; Denies abdominal pain or chest pain Related Data Home Medications Medication Instructions Recorded Confirmed Probiotic 1 cap PO DAILY PRN gut health 01/14/20 04/09/23 lactulose 10 gram/15 mL oral See Rx Instructions .Route .COMPLEX 01/14/20 04/09/23 solution levothyroxine 25 mcg tablet 25 mcg PO DAILY 01/14/20 04/09/23 metformin 500 mg tablet See Rx Instructions .Route .COMPLEX 01/14/20 04/09/23 rifaximin 550 mg tablet (Xifaxan) 550 mg PO BID 01/14/20 04/09/23 sitagliptin phosphate 50 mg tablet 50 mg PO DAILY 01/14/20 04/09/23 (Januvia) spironolactone 50 mg tablet 50 mg PO BID 01/04/21 04/09/23 omeprazole 10 mg capsule,delayed 10 mg PO DAILY 11/14/21 04/09/23 release glipizide 5 mg tablet, extended 5 mg PO DAILY 01/01/22 04/09/23 release 24 hr pantoprazole 40 mg tablet,delayed 40 mg PO DAILY PRN 01/01/22 04/09/23 release (Protonix) Previous Rx's Medication Instructions Recorded ondansetron 4 mg disintegrating 4 mg PO Q6H PRN nausea and 01/14/20 tablet vomiting #14 tabs hydrocodone 5 mg-acetaminophen 325 1 tab PO Q6H PRN pain #10 tabs 07/02/21 mg tablet Custom Insoles #1 ea 07/12/23 ondansetron HCl 4 mg tablet 4 mg PO Q8H PRN nausea and 12/05/23 vomiting #14 tabs sulfamethoxazole 800 1 tab PO BID #14 tabs 12/05/23 mg-trimethoprim 160 mg tablet (Bactrim DS) Allergies Allergy/AdvReac Type Severity Reaction Status Date / Time acetaminophen [From Percocet] Allergy ALGY-Swell Verified 04/09/23 11:18 Lip/Tongue/Throat carisoprodol [From Soma] Allergy ADR-Irritab Verified 04/09/23 11:18 le cefuroxime [From Ceftin] Allergy ALGY-Difficulty Verified 04/09/23 11:18 Breathing ciprofloxacin [From Cipro] Allergy ADR-Itching Verified 04/09/23 11:18 codeine Allergy ADR-Itching Verified 04/09/23 11:18 gabapentin [From Neurontin] Allergy ALGY-Wheezi Verified 04/09/23 11:18 ng NSAIDS (Non-Steroidal Allergy ALGY-Swell Verified 04/09/23 11:18 Anti-Inflamma Lip/Tongue/Throat oxaprozin [From Daypro] Allergy ADR-Itching Verified 04/09/23 11:18 oxycodone [From Percocet] Allergy ALGY-Swell Verified 04/09/23 11:18 Lip/Tongue/Throat pregabalin [From Lyrica] Allergy ALGY-Swell Verified 04/09/23 11:18 Lip/Tongue/Throat tramadol [From Ultram] Allergy ADR-Itching Verified 04/09/23 11:18 Review of Systems Const: Denies: fever(s) or chills Card: Denies: chest pain Resp: Denies: dyspnea GI: Denies: abdominal pain : Reports: dysuria; Denies: urinary frequency or urinary urgency Musc: Reports: neck pain; Denies: back pain Skin/Breast: Denies: rash Neuro: Reports: headache(s) PFSH ED PFSH: Medical History Iron deficiency anemia 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 Obstructive sleep apnea Hypothyroidism Hyperlipidemia Type 2 diabetes mellitus Hypertension Surgical History History of esophagogastroduodenoscopy EGD with esophageal banding History of hysterectomy with unilateral oophorectomy History of laparoscopic cholecystectomy History of back surgery x 5 History of colonoscopy (~07/2019) History of x 3 History of appendectomy History of carpal tunnel release of both wrists Family History Denies family history of Anesthesia complication Bleeding disorder Social History Smoking and tobacco/nicotine status: never used tobacco/nicotine Physical Exam Const: GENERAL APPEARANCE: cooperative and comfortable ORIENTATION/CONSCIOUSNESS: Yes awake HENMT: COMMON NORMALS: normocephalic, atraumatic and hearing grossly normal bilaterally HEAD & SCALP: normocephalic and atraumatic Resp: COMMON NORMALS: normal respiratory effort, No retractions, No use of accessory muscles and clear to auscultation bilaterally AUSCULTATION: clear to auscultation bilaterally Cardio: COMMON NORMALS: regular rate, regular rhythm and No murmurs present (Cardio) RATE: regular rate RHYTHM: regular rhythm GI: COMMON NORMALS: Soft to palpation and No hepatosplenomegaly present AUSCULTATION: Yes normoactive bowel sounds PALPATION: Yes Soft to palpation, No Tenderness to palpation present (GI), No Guarding due to palpation present (GI) and Yes No hepatosplenomegaly present Extremity: COMMON NORMALS: normal to inspection, capillary refill normal, no clubbing, cyanosis or edema, no calf tenderness and no pedal edema Skin: COMMON NORMALS: no rashes or lesions noted GENERAL SKIN EXAM: no rashes or lesions noted Course Vital Signs: Vital signs: Vital Signs Temperature 98.8 F 12/06/23 08:00 Pulse Rate 92 12/06/23 09:58 Respiratory Rate 20 H 12/06/23 06:09 Blood Pressure 149/74 12/06/23 09:58 Pulse Oximetry 95 12/06/23 09:58 Oxygen Delivery Me thod Room Air 12/06/23 10:21 MDM - Fall Medical Decision Making Failed outpatient therapy she is fallen several times and is feeling more ill lactate elevated. Culture from the urine from the previous visit is not yet resulted will start on IV antibiotics admit with IV fluids discussed with hospitalist orders written. Patient does not have any significant flank pain at this time. Medical Records I reviewed the patient's medical records. Lab Data I reviewed the patient's lab results. 12/06/23 06:43 12/06/23 06:43 Radiology Impressions Cervical Spine CT 12/06/23 06:30 IMPRESSION: No acute findings. Chest X-Ray 12/06/23 06:31 IMPRESSION: No acute findings. Head CT 12/06/23 06:31 IMPRESSION: No acute intracranial abnormality. Laboratory Results WBC 10.57 10^3/uL (3.29-11.43) 12/06/23 06:43 RBC 3.88 10^6/uL (3.85-5.65) 12/06/23 06:43 Hgb 11.80 g/dL (11.27-16.99) 12/06/23 06:43 Hct 34.0 % (36-47) L 12/06/23 06:43 MCV 87.6 fl (85-98) 12/06/23 06:43 MCH 30.4 pg (27-33) 12/06/23 06:43 MCHC 34.7 g/dL (30-55) 12/06/23 06:43 RDW 14.2 % (12.1-15.1) 12/06/23 06:43 Plt Count 74 10^3/cmm (157-399) L 12/06/23 06:43 MPV 12.0 fL (7.4-10.4) H 12/06/23 06:43 Neut % (Auto) 88.1 % 12/06/23 06:43 Lymph % (Auto) 4.4 % 12/06/23 06:43 [place] % (Auto) 6.9 % 12/06/23 06:43 Eos % (Auto) 0.0 % 12/06/23 06:43 Baso % (Auto) 0.2 % 12/06/23 06:43 Neut # (Auto) 9.31 10^3/uL (1.8-7.7) H 12/06/23 06:43 Lymph # (Auto) 0.5 10^3/uL (0.8-4.8) L 12/06/23 06:43 [place] # (Auto) 0.7 10^3/uL (0.2-0.9) 12/06/23 06:43 Eos # (Auto) 0.0 10^3/uL (0.0-0.8) 12/06/23 06:43 Baso # (Auto) 0.0 10^3/uL (0.0-0.1) 12/06/23 06:43 Nucleated RBC % (auto) 0 % 12/06/23 06:43 Nucleated RBCs # 0.0 /100WBC 12/06/23 06:43 Sodium 128 mmol/L (136-145) L 12/06/23 06:43 Potassium 4.8 mmol/L (3.5-5.1) 12/06/23 06:43 Chloride 95 mmol/L (98-107) L 12/06/23 06:43 Carbon Dioxide 18 mmol/L (22-29) L 12/06/23 06:43 Anion Gap 19.8 (5-19) H 12/06/23 06:43 BUN 14 mg/dL (8-23) 12/06/23 06:43 Creatinine 1.2 mg/dL (0.5-0.9) H 12/06/23 06:43 GFR Calculation 45.1 mL/min (90-130) L 12/06/23 06:43 Glucose 280 mg/dL (65-115) H 12/06/23 06:43 POC Glucose 291 mg/dL (70-110) H 12/06/23 06:17 Calculated Osmolality 277 mOsm/kg (285-295) L 12/06/23 06:43 Lactic Acid 3.5 mmol/L (0.5-2.2) H 12/06/23 06:43 Calcium 9.5 mg/dL (8.5-10.5) 12/06/23 06:43 Total Bilirubin 2.0 mg/dL (0.15-1.2) H 12/06/23 06:43 AST 91 U/L (0-32) H 12/06/23 06:43 ALT 31 U/L (0-33) 12/06/23 06:43 Alkaline Phosphatase 90 U/L (35-105) 12/06/23 06:43 Total Protein 6.9 g/dL (6.6-8.7) 12/06/23 06:43 Albumin 3.8 g/dL (3.5-5.2) 12/06/23 06:43 Globulin 3.1 g/dL (1.3-4.6) 12/06/23 06:43 Urine Color Dark yellow (Yellow) A 12/06/23 06:30 Urine Appearance Clear (CLEAR) 12/06/23 06:30 Urine pH 6.0 (5-7) 12/06/23 06:30 Ur Specific [place] 1.018 (1.005-1.030) 12/06/23 06:30 Urine Protein 1+ (Negative) A 12/06/23 06:30 Urine Glucose (UA) Negative (Normal) 12/06/23 06:30 Urine Ketones 1+ (Negative) H 12/06/23 06:30 Urine Blood 1+ (Negative) A 12/06/23 06:30 Urine Nitrate Negative (Negative) 12/06/23 06:30 Urine Bilirubin Negative (Negative) 12/06/23 06:30 Urine Urobilinogen 1.0 mg/dL (Negative) 12/06/23 06:30 Ur Leukocyte Esterase 1+ (Negative) A 12/06/23 06:30 Urine RBC 0-2 /hpf (0-2) 12/06/23 06:30 Urine WBC 21-50 /hpf (0-5) H 12/06/23 06:30 Ur Squamous Epith Cells 0-5 /hpf (0-5) 12/06/23 06:30 Amorphous Sediment Not Reportable 12/06/23 06:30 Urine Bacteria None seen /hpf (NONE) 12/06/23 06:30 Hyaline Casts 3.30 /lpf 12/06/23 06:30 All radiology interpretation(s) finalized by discharge Discharge Plan Discharge Patient Disposition: Admitted As Inpatient Admit Provider: Pablo Delong Clinical Impression: Urinary tract infection, Nausea & vomiting Condition: Stable Coding Level of Care Code ED Road Design Draftsperson for Roberta Valdes
[2023-12-06 08:34] LABS: Reflex Lactate Order REFLEX LACTIC ORDERD
[2023-12-06] MEDS: piperacillin-tazobactam 3.375 GM in sodium chloride 0.9% (plus) 50 ML IV ×2 (08:36→17:25)
[2023-12-06] MEDS: sodium chloride 0.9% 1,000 ML 100 ML IV ×2 (11:00→21:15)
--- NOTE | 2023-12-06 12:05 | CTR_ITS ---
PROCEDURE INFORMATION: Exam: CT Abdomen And Pelvis Without Contrast Exam date and time: 12/06/2023 3:34 PM Age: 67 years old Clinical indication: Condition or disease; Kidney or ureter condition; Acute renal insufficiency; Prior surgery; Surgery date: 6+ months; Surgery type: Gb; Additional info: Pyelonephritis, javi TECHNIQUE: Imaging protocol: Computed tomography of the abdomen and pelvis without contrast. Radiation optimization: All CT scans at this facility use at least one of these dose optimization techniques: automated exposure control; mA and/or kV adjustment per patient size (includes targeted exams where dose is matched to clinical indication); or iterative reconstruction. COMPARISON: CT abdomen pelvis w con* [id number] 08/14/2023 7:49 PM RADIATION DOSE METRICS: Total DLP (mGy-cm): 845.9 FINDINGS: Lungs: Less than 3 mm scattered nodules in visualized lower lungs are stable. Liver: Macronodular cirrhotic changes. Gallbladder and biliary ducts: Cholecystectomy. Pancreas: Unremarkable Spleen: Splenomegaly, measures 7.5 x 12 x 17 cm, similar to previous study. Adrenal glands: Normal. Kidneys and ureters: No calculus. No significant perinephric fat stranding. Ureters are normal in caliber. No hydronephrosis. Stomach and bowel: Mucosal thickening of the stomach. Minimal edema of the duodenal. No obstruction. Appendix: Not identified. Intraperitoneal space: No free air. Fat stranding in upper retroperitoneum, lesser sac and mesentery. Small amount of free fluid in the upper abdomen. Vasculature: Atherosclerotic calcifications. No abdominal aortic aneurysm. Varices noted in left upper abdomen and retroperitoneum. Lymph nodes: No significant lymphadenopathy. Urinary bladder: Unremarkable as visualized. Reproductive: Hysterectomy noted. Bones/joints: No acute fracture. Moderate facet joint arthritic changes at L4-L5 and L5/S1 level. Soft tissues: No significant ventral hernia. CT/CT abdomen pelvis wo con [id number] IMPRESSION: 1. Edema and inflammatory changes of stomach and duodenum without obstruction. 2. Cirrhosis with portal hypertension suspected. Small ascites. Edema and inflammatory changes in upper abdomen, retroperitoneum, lesser sac and mesentery is probably related to portal hypertension and gastritis, duodenitis. Superimposed pancreatitis or other etiology cannot be excluded. Recommend follow-up studies.
--- NOTE | 2023-12-06 12:10 | P.HP_ITS ---
Providers/Chief Complaint 2 Admitting Physician: Pablo Delong MD Primary Care Provider: Kami Mcgee MD Chief Complaint: Fall History of Present Illness Phyllis Hall is a 67 year old female with past medical history of type 2 diabetes mellitus, hypothyroidism, GEORGE presented to the hospital for generalized weakness which has been getting worse over the last week along with recurrent falls. Patient was in the ER 3 days ago because of fall and and weakness and was diagnosed of urinary tract infection was discharged back home on oral Bactrim. Patient has been taking her medications for last 2 days but did not take last night because of feeling extremely weak. Last fall was yesterday evening when she was trying to get out of bed to go to her bathroom and her legs felt weak. She denies of hitting head. Currently she is denying of any nausea, vomiting, headache, dizziness, abdominal pain, diarrhea. She does give complaints of dysuria, burning, painful micturition for last 1 week. Also complains of generalized weakness and body pain of more so in the back. Patient lives by herself. Denies any changes in medications recently. Review of Systems 2 General: Reports: 10 or more systems reviewed and unremarkable except in HPI and below Const: Denies: fever(s), chills, body aches, change in appetite, change in weight, malaise, night sweats, diaphoresis, change in sleep pattern, daytime sleepiness or snoring Eyes: Denies: change in vision, blurry vision, photophobia, eye discomfort or eye discharge ENMT: Denies: throat pain, enlarged tonsils, hoarseness, mouth pain, oral sores, dry mouth, tinnitus, nasal congestion or post nasal drip Card: Denies: chest pain, palpitations, irregular heart rhythm, edema, swelling of feet/ankles, lightheadedness, syncope, pre-syncope, dyspnea on exertion, orthopnea, leg pain with exertion or acrocyanosis Resp: Denies: dyspnea, productive cough, non-productive cough, wheezing, stridor, pain on inspiration, change in phlegm color, hemoptysis or chest congestion GI: Denies: abdominal pain, nausea, vomiting, hematemesis, coffee ground emesis, dysphagia, heartburn, diarrhea, constipation, bloating, GI cramping, change in bowel habits, pain on defecation, hematochezia or melena : Denies: flank pain, dysuria, urinary frequency, urinary urgency, urinary hesitancy, nocturia or hematuria Musc: Denies: neck pain, back pain, extremity pain, joint pain, joint swelling, joint redness, joint stiffness or limited range of motion Neuro: Denies: headache(s), numbness in extremities, weakness in extremities, sensory changes, lack of coordination, difficulty walking, frequent falls, dizziness, vertigo, confusion, Slurred speech present, difficulty communicating thoughts or seizure-like activity Psych: Denies: anxiety, depression, mood swings, panic attacks, hopelessness or irritability Endo: Denies: polyuria, polydipsia, tired all the time, cold intolerance, excessive sweating, flushing or heat intolerance Prabhu/Lymph: Denies: easy bruising or easy bleeding All/Imm: Denies: tongue swelling, facial swelling or acute wheezing Medications/Allergies Home Medications Medication Instructions Recorded Confirmed Last Taken Type Probiotic 1 cap PO DAILY PRN gut health 01/14/20 04/09/23 Unknown History lactulose 10 gram/15 mL oral See Rx Instructions .Route .COMPLEX 01/14/20 04/09/23 01/14/20 History solution levothyroxine 25 mcg tablet 25 mcg PO DAILY 01/14/20 04/09/23 07/01/21 History metformin 500 mg tablet See Rx Instructions .Route .COMPLEX 01/14/20 04/09/23 07/01/21 History ondansetron 4 mg disintegrating 4 mg PO Q6H PRN nausea and 01/14/20 04/09/23 Unknown Rx tablet vomiting #14 tabs rifaximin 550 mg tablet (Xifaxan) 550 mg PO BID 01/14/20 04/09/23 07/01/21 History sitagliptin phosphate 50 mg tablet 50 mg PO DAILY 01/14/20 04/09/23 07/01/21 History (Januvia) spironolactone 50 mg tablet 50 mg PO BID 01/04/21 04/09/23 07/01/21 History hydrocodone 5 mg-acetaminophen 325 1 tab PO Q6H PRN pain #10 tabs 07/02/21 04/09/23 Unknown Rx mg tablet omeprazole 10 mg capsule,delayed 10 mg PO DAILY 11/14/21 04/09/23 Unknown History release glipizide 5 mg tablet, extended 5 mg PO DAILY 01/01/22 04/09/23 Unknown History release 24 hr pantoprazole 40 mg tablet,delayed 40 mg PO DAILY PRN 01/01/22 04/09/23 Unknown History release (Protonix) Custom Insoles #1 ea 09/11/22 04/09/23 Unknown Rx ondansetron HCl 4 mg tablet 4 mg PO Q8H PRN nausea and 12/05/23 Unknown Rx vomiting #14 tabs sulfamethoxazole 800 1 tab PO BID #14 tabs 12/05/23 Unknown Rx mg-trimethoprim 160 mg tablet (Bactrim DS) Allergies Allergy/AdvReac Type Severity Reaction Status Date / Time acetaminophen [From Percocet] Allergy ALGY-Swell Verified 04/09/23 11:18 Lip/Tongue/Throat carisoprodol [From Soma] Allergy ADR-Irritab Verified 04/09/23 11:18 le cefuroxime [From Ceftin] Allergy ALGY-Difficulty Verified 04/09/23 11:18 Breathing ciprofloxacin [From Cipro] Allergy ADR-Itching Verified 04/09/23 11:18 codeine Allergy ADR-Itching Verified 04/09/23 11:18 gabapentin [From Neurontin] Allergy ALGY-Wheezi Verified 04/09/23 11:18 ng NSAIDS (Non-Steroidal Allergy ALGY-Swell Verified 04/09/23 11:18 Anti-Inflamma Lip/Tongue/Throat oxaprozin [From Daypro] Allergy ADR-Itching Verified 04/09/23 11:18 oxycodone [From Percocet] Allergy ALGY-Swell Verified 04/09/23 11:18 Lip/Tongue/Throat pregabalin [From Lyrica] Allergy ALGY-Swell Verified 04/09/23 11:18 Lip/Tongue/Throat tramadol [From Ultram] Allergy ADR-Itching Verified 04/09/23 11:18 PFSH Acute 2 PFSH: Medical History Iron deficiency anemia 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 Obstructive sleep apnea Hypothyroidism Hyperlipidemia Type 2 diabetes mellitus Hypertension Surgical History History of esophagogastroduodenoscopy EGD with esophageal banding History of hysterectomy with unilateral oophorectomy History of laparoscopic cholecystectomy History of back surgery x 5 History of colonoscopy (~07/2019) History of x 3 History of appendectomy History of carpal tunnel release of both wrists Family History Denies family history of Anesthesia complication Bleeding disorder Social History Smoking and tobacco/nicotine status: never used tobacco/nicotine Vitals/I&O/Wt Last Vital Signs Temp 98.8 F 12/06/23 08:00 Pulse 92 12/06/23 09:58 Resp 20 H 12/06/23 06:09 BP 149/74 12/06/23 09:58 Pulse Ox 95 12/06/23 09:58 O2 Del Method Room Air 12/06/23 10:21 12/05/23 12/06/23 12/06/23 22:59 06:59 14:59 Intake Total 50 / 50 Balance 50 / 50 Weight last 48 hrs Weight 79.016 kg Weight 95.254 kg Physical Exam 2 Narrative: General: No acute distress, AO x3, Dehydrated, sick appearing HEENT: PERRLA, pupils bilaterally equal and reactive Chest: Normal vesicular breath sounds, no added sounds, equal good air entry bilaterally CVS: S1-S2 regular, no murmurs, no tachycardia, no gallops, no rubs Abdomen: Soft, nontender, no organomegaly, bowel sounds present, no flank tenderness Neuro: No focal deficits, no facial deformity, AO x3, power 5/5 in all limbs Data 12/06/23 06:43 12/06/23 06:43 Micro: Microbiology 12/06/23 08:07 Blood Culture - Preliminary Blood SPECIMEN COLLECTED 12/06/23 08:09 Blood Culture - Preliminary Blood SPECIMEN COLLECTED A&P Assessment and plan (1) Sepsis: Present on admission. Source: UTI End organ damage: KELVIN/recurrent falls Lactic acid elevated on admission. Patient did receive full 30 mL/kg BW. Continue with normal saline at 100 cc/h. Monitor blood pressures. Keep mean artery pressure 65 mmHg. Blood culture, urine culture, procalcitonin, bacterial antigen. De-escalate antibiotics as per culture results. (2) Urinary tract infection: Qualifiers: Hematuria presence: with hematuria Urinary tract infection type: acute cystitis Qualified Code(s): N30.01 - Acute cystitis with hematuria (3) Acute kidney injury: (4) Hyponatremia: (5) High anion gap metabolic acidosis: (6) Diabetes: (7) Hypertension: (8) Thrombocytopenia: Chronic. Most likely in setting of GEORGE. Continue to monitor daily. Hemoglobin stable. (9) Fall: (10) Generalized weakness: Plan 67-year-old lady with past medical history of George, type 2 diabetes mellitus, hypertension presents to the ER because of recurrent falls and generalized weakness. She was recently diagnosed of UTI within the last 1 week and was sent home on oral Bactrim. Currently presents with persistent symptoms of UTI, acute kidney injury. Generalized weakness/fall: In setting of UTI/sepsis. Physical therapy evaluation. IV hydration with normal saline at 100 cc/h. UTI: Failure to outpatient Bactrim. Follow-up urine culture. Check blood culture. Check procalcitonin, lactate. Continue with IV Zosyn for now. Cannot use ceftriaxone as patient is allergic with anaphylaxis for cefuroxime. Will de-escalate antibiotics as per culture results. Acute kidney injury: Most likely in setting of dehydration, sepsis, home use of Bactrim and spironolactone. IV fluids as above. Medical reconciliation done for nephrotoxic drugs. Monitor BMP daily for now. Hyponatremia: Most likely in setting of dehydration and acute kidney injury. Normal saline as above. Monitor BMP interval hours for improvement. High anion gap metabolic acidosis: Most likely in setting of KELVIN. Patient does have type 2 diabetes mellitus. Will check ketones. DKA for now less likely. Type 2 diabetes mellitus: Takes glipizide at home along with metformin. Hold OHA. Check A1c. Sliding scale at low-dose protocol. GEORGE: LFTs within normal limits for now. Continue with home dose of rifaximin. Holding off on spironolactone. CODE STATUS: Discussed in detail with the patient. Full code. Daughter will be the DPOA. Carb consistent diet Protonix for PUD prophylaxis Heparin for DVT prophylaxis. Discharge plan: Home with home health versus SNF depending on clinical improvement and PT evaluation. Attestations 2 Medical Necessity Statement*: Admission for more than 2 midnights for management of sepsis in setting of UTI, acute kidney injury with hyponatremia leading to generalized weakness and recurrent falls while safe discharge planning is sought. Diagnoses Sepsis A41.9 Urinary tract infection N30.01 Hematuria presence: with hematuria Urinary tract infection type: acute cystitis Acute kidney injury N17.9 Hyponatremia E87.1 High anion gap metabolic acidosis E87.29 Diabetes E11.9 Hypertension I10 Thrombocytopenia D69.6 Fall W19.XXXA Generalized weakness R53.1
[2023-12-06 12:28] LABS: Ketone (Acetest) Serum Negative (Negative)
[2023-12-06 12:42] LABS: Procalcitonin 1.87 ng/mL (0-0.5); Thyroid Stimulating Hormone 1.12 uIU/mL (0.27-4.20); Vitamin B12 531 pg/mL (232-1245)
[2023-12-06 12:53] LABS: Iron 38 ug/dL (37-145)
[2023-12-06 13:02] LABS: Percent Saturation 9.3 % (20-50); Total Iron Binding Capacity 408 mcg/dl; Unsaturated Iron Binding 370 ug/dL (112-347)
[2023-12-06] MEDS: heparin 5,000 unit/mL INJ 1 mL 5000 UNIT SUBCUT (13:46)
[2023-12-06] MEDS: pantoprazole DR 40 mg Tablet PO (13:46)
[2023-12-06 17:01] LABS: Glucose Point of Care 255 mg/dL (70-110)
[2023-12-06] MEDS: insulin lispro 100 unit/1 mL SUBCUT ×2 (17:26→20:31)
[2023-12-06 20:25] LABS: Glucose Point of Care 195 mg/dL (70-110)
[2023-12-06 21:08] LABS: Glucose Point of Care 181 mg/dL (70-110)
[2023-12-07] VITALS (11 sets, daily range): BP systolic 117–151; BP diastolic 60–71; PULSE 65–83; RESP 16–19; TEMP 36.7–37.9; O2SAT 93–98; BMI 39.9
[2023-12-07] MEDS: heparin 5,000 unit/mL INJ 1 mL 5000 UNIT SUBCUT ×2 (00:26→12:44)
[2023-12-07] MEDS: piperacillin-tazobactam 3.375 GM in sodium chloride 0.9% (plus) 50 ML IV ×4 (00:41→23:32)
[2023-12-07] MEDS: morphine 4 mg/mL SDV 1 mL 2 MG IVP ×2 (02:04→23:32)
[2023-12-07 04:52] LABS: Basophils % 0.3 %; Eosinophils # 0.1 10^3/uL (0.0-0.8); Eosinophils % 0.8 %; Hematocrit 28.6 % (36-47); Lymphocytes # 0.7 10^3/uL (0.8-4.8); Lymphocytes % 11.2 %; Mean Corpuscular HGB Conc 34.6 g/dL (30-55); Mean Corpuscular Hemoglobin 30.9 pg (27-33); Mean Corpuscular Volume 89.4 fl (85-98); Mean Platelet Volume 12.6 fL (7.4-10.4); Monocytes # 0.8 10^3/uL (0.2-0.9); Monocytes % 11.8 %; Neutrophils # 4.94 10^3/uL (1.8-7.7); Neutrophils % 75.6 %; Nucleated Red Blood Cells % 0 %; Platelet Count 56 10^3/cmm (157-399); Red Cell Distribution Width 14.5 % (12.1-15.1); White Blood Count 6.53 10^3/uL (3.29-11.43)
[2023-12-07 05:01] LABS: Alanine Aminotransferase 26 U/L (0-33); Albumin Level 3.2 g/dL (3.5-5.2); Alkaline Phosphatase 78 U/L (35-105); Anion Gap 13.8 (5-19); Aspartate Amino Transferase 76 U/L (0-32); Blood Urea Nitrogen 13 mg/dL (8-23); Calcium 8.3 mg/dL (8.5-10.5); Carbon Dioxide 20 mmol/L (22-29); Chloride 99 mmol/L (98-107); Creatinine Clr Calc Pharmacy 56.9793; Globulin 2.5 g/dL (1.3-4.6); Glomerular Filtration Rate 41.1 mL/min (90-130); Glucose 163 mg/dL (65-115); Magnesium 1.6 mg/dL (1.7-2.3); Osmolality Calculated 270 mOsm/kg (285-295); Phosphorus 2.1 mg/dL (2.5-4.5); Potassium 4.8 mmol/L (3.5-5.1); Sodium 128 mmol/L (136-145); Total Bilirubin 1.4 mg/dL (0.15-1.2); Total Protein 5.7 g/dL (6.6-8.7)
[2023-12-07 05:08] LABS: Procalcitonin 1.38 ng/mL (0-0.5)
[2023-12-07 05:12] LABS: Estmated Average Glucose 200; Hemoglobin A1C 8.6 % (4.0-6.0)
[2023-12-07 05:21] LABS: Cholesterol 145 mg/dL (0-200); HDL Cholesterol 21 mg/dL (60-100); LDL Cholesterol Calculated 96 mg/dL (50-129); LDL HDL Ratio 4.57 RATIO (0.00-3.22); Triglycerides 142 mg/dL (0-150)
[2023-12-07 05:28] LABS: Folate Level 12.3 ng/mL (4.8-37.3)
[2023-12-07] MEDS: sodium chloride 0.9% 1,000 ML 100 ML IV (06:32)
[2023-12-07 06:37] LABS: Glucose Point of Care 137 mg/dL (70-110)
[2023-12-07] MEDS: pantoprazole DR 40 mg Tablet PO (07:51)
[2023-12-07] MEDS: bisacodyl 5 mg Tablet 10 MG PO (07:51)
[2023-12-07 12:03] LABS: Glucose Point of Care 263 mg/dL (70-110)
--- NOTE | 2023-12-07 12:18 | P.PN_ITS ---
Subjective 2 Subjective: No acute vents overnight. Seen with daughter at bedside. Patient states she is feeling stronger today. Denies any nausea, vomiting, headache. Tmax of 100.8 Fahrenheit overnight. Vitals/I&O/Wt Last Vital Signs Temp 99.4 F 12/07/23 08:00 Pulse 78 12/07/23 09:07 Resp 19 H 12/07/23 08:00 BP 117/70 12/07/23 08:00 Pulse Ox 94 12/07/23 09:07 O2 Del Method Room Air 12/07/23 09:07 12/06/23 12/07/23 12/07/23 22:59 06:59 14:59 Intake Total 1170 / 1220 1050 / 2270 705 / 705 Balance 1170 / 1220 1050 / 2270 705 / 705 Weight last 48 hrs Weight 83.659 kg Weight 79.016 kg Weight 95.254 kg Physical Exam 2 Narrative: General: No acute distress, AO x3, Dehydrated, sick appearing HEENT: PERRLA, pupils bilaterally equal and reactive Chest: Normal vesicular breath sounds, no added sounds, equal good air entry bilaterally CVS: S1-S2 regular, no murmurs, no tachycardia, no gallops, no rubs Abdomen: Soft, nontender, no organomegaly, bowel sounds present, no flank tenderness Neuro: No focal deficits, no facial deformity, AO x3, power 5/5 in all limbs Quick SOFA Score: Respiratory Rate: 18 Blood Pressure: 118/69 [place] Coma Scale: 15 qSOFA Score: 0 If qSOFA score 2 or greater, continue: PaO2/FiO2 Ratio (mmHg): 380 Blood Pressure Mean: 85 Bilirubin (mg/dl): 1.4 Platelets (x10?/ml): 56 C reatinine (mg/dl): 1.3 SOFA Score: 5 Evaluation: Current stage of sepsis: sepsis Sepsis stage criteria used: CMS Sep-1 and Sepsis-3 Crystalloid fluids: 30 mL/kg crystalloid fluids ordered and initiated within 3 hours Blood cultures ordered: Yes Possible source: genitourinary Focused Exam: Vital signs: Temp Pulse Resp BP Pulse Ox O2 Del Method O2 Del Method 12/07/23 12:21 98.0 F 75 18 118/69 94 Room Air 12/07/23 09:07 78 94 Room Air 12/07/23 08:00 99.4 F 79 19 H 117/70 96 Room Air 12/07/23 05:09 72 12/07/23 04:00 100.2 F H 78 18 131/71 98 Room Air 12/07/23 02:04 17 95 Date exam was performed: 12/07/23 Time exam was performed: 10:23 2 Sepsis Screen No Definite Risk 12/06/23 09:30 Respiratory Rate 18 breaths/min (12 - 18) 12/07/23 12:21 Blood Pressure 118/69 mmHg 12/07/23 12:21 [place] Coma Scale Score 15 12/06/23 10:21 Quick SOFA Score 0 12/06/23 09:30 SOFA Score: 2 [place] Coma Scale Score 15 12/06/23 10:21 Blood Pressure Mean 85 mmHg 12/07/23 12:21 Total Bilirubin 1.4 mg/dL (0.15-1.2) H 12/07/23 04:12 Platelet Count 56 10^3/cmm (157-399) L 12/07/23 04:12 Creatinine 1.3 mg/dL (0.5-0.9) H 12/07/23 04:12 Data 12/07/23 04:12 12/07/23 04:12 Micro: Microbiology 12/06/23 06:30 Urine Culture - Preliminary Urine,Clean Catch 12/06/23 06:30 Bacterial Antigens - Final Urine Kidney 12/06/23 08:07 Blood Culture - Preliminary Blood NEGATIVE TO DATE 12/06/23 08:09 Blood Culture - Preliminary Blood NEGATIVE TO DATE A&P Assessment and plan (1) Sepsis: Present on admission. Source: UTI End organ damage: KELVIN/recurrent falls Lactic acid elevated on admission. Patient did receive full 30 mL/kg BW. Continue with normal saline at 100 cc/h. Monitor blood pressures. Keep mean artery pressure 65 mmHg. Blood culture, urine culture, procalcitonin, bacterial antigen. De-escalate antibiotics as per culture results. (2) Urinary tract infection: Qualifiers: Hematuria presence: with hematuria Urinary tract infection type: acute cystitis Qualified Code(s): N30.01 - Acute cystitis with hematuria (3) Acute kidney injury: (4) Hyponatremia: (5) High anion gap metabolic acidosis: (6) Diabetes: (7) Hypertension: (8) Thrombocytopenia: Chronic. Most likely in setting of ARELLANO. Continue to monitor daily. Hemoglobin stable. (9) Fall: (10) Generalized weakness: Plan 67-year-old lady with past medical history of Arellano, type 2 diabetes mellitus, hypertension presents to the ER because of recurrent falls and generalized weakness. She was recently diagnosed of UTI within the last 1 week and was sent home on oral Bactrim. Currently presents with persistent symptoms of UTI, acute kidney injury. Generalized weakness/fall: Improving. Out of bed to chair. In setting of UTI/sepsis. Physical therapy evaluation. UTI: Failure to outpatient Bactrim. Follow-up urine culture. Check blood culture. Procalcitonin mildly elevated. Appreciate trend. Continue with IV Zosyn for now. Cannot use ceftriaxone as patient is allergic with anaphylaxis for cefuroxime. Will de-escalate antibiotics as per culture results. Acute kidney injury: Most likely in setting sepsis, home use of Bactrim and spironolactone. Stop IV fluids today. KELVIN slightly worsening. Given significant edema on CT abdomen/pelvis in setting of liver dysfunction cannot rule out mild hepatorenal syndrome. IV Lasix 20 mg one-time. Repeat BMP in evening. Medical reconciliation done for nephrotoxic drugs. Replace 1 g of magnesium. Potassium stable for now. Hyponatremia: Stable. Continues to have hyponatremia. Monitor in afternoon. Switch to regular carb consistent diet. High anion gap metabolic acidosis: Resolving. Most likely in setting of KELVIN. Patient does have type 2 diabetes mellitus. Ketones negative. Type 2 diabetes mellitus: Takes glipizide at home along with metformin. Hold OHA. A1c 8.6 Sliding scale at low-dose protocol. ARELLANO: LFTs within normal limits for now. Continue with home dose of rifaximin. Holding off on spironolactone. CODE STATUS: Discussed in detail with the patient. Full code. Daughter will be the DPOA. Carb consistent diet Protonix for PUD prophylaxis Heparin for DVT prophylaxis. Discharge plan: Home with home health versus SNF depending on clinical improvement and PT evaluation. Attestations 2 Medical Necessity Statement*: Requires further hospitalization for management of sepsis in setting of UTI, acute kidney injury, hyponatremia leading to generalized weakness while physical therapy evaluation is awaited. Diagnoses Sepsis A41.9 Urinary tract infection N30.01 Hematuria presence: with hematuria Urinary tract infection type: acute cystitis Acute kidney injury N17.9 Hyponatremia E87.1 High anion gap metabolic acidosis E87.29 Diabetes E11.9 Hypertension I10 Thrombocytopenia D69.6 Fall W19.XXXA Generalized weakness R53.1
[2023-12-07] MEDS: insulin lispro 100 unit/1 mL SUBCUT ×3 (12:45→20:59)
[2023-12-07] MEDS: magnesium sulfate premix 1 GM/100 ML PIGGYBACK IV (13:46)
[2023-12-07 15:03] LABS: Anion Gap 13.6 (5-19); Blood Urea Nitrogen 15 mg/dL (8-23); Calcium 8.2 mg/dL (8.5-10.5); Carbon Dioxide 18 mmol/L (22-29); Chloride 98 mmol/L (98-107); Creatinine Clr Calc Pharmacy 56.9793; Glomerular Filtration Rate 41.1 mL/min (90-130); Glucose 283 mg/dL (65-115); Osmolality Calculated 271 mOsm/kg (285-295); Potassium 4.6 mmol/L (3.5-5.1); Sodium 125 mmol/L (136-145)
[2023-12-07] MEDS: FUROsemide 10 mg/mL SDV 2mL 20 MG IVP (15:28)
[2023-12-07 16:37] LABS: Glucose Point of Care 261 mg/dL (70-110)
[2023-12-07] MEDS: sodium chloride 1 gm Tablet PO (17:08)
[2023-12-07] MEDS: magnesium hydroxide 30 mL UDC PO (17:08)
[2023-12-07] MEDS: NON-FORMULARY MEDICATION (Rifaximin [Xifaxan] 550 mg tablet) 550 EACH PO (17:08)
[2023-12-07 20:49] LABS: Glucose Point of Care 289 mg/dL (70-110)
[2023-12-08 04:00] VITALS: BP 106/56; PULSE 67; RESP 17; TEMP 36.9; O2SAT 94
[2023-12-08 05:37] LABS: Basophils % 0.4 %; Eosinophils # 0.3 10^3/uL (0.0-0.8); Eosinophils % 5.3 %; Hematocrit 29.6 % (36-47); Lymphocytes # 0.8 10^3/uL (0.8-4.8); Lymphocytes % 16.8 %; Mean Corpuscular HGB Conc 33.4 g/dL (30-55); Mean Corpuscular Hemoglobin 30.4 pg (27-33); Mean Corpuscular Volume 90.8 fl (85-98); Mean Platelet Volume 12.1 fL (7.4-10.4); Monocytes # 0.7 10^3/uL (0.2-0.9); Monocytes % 14.7 %; Neutrophils # 2.96 10^3/uL (1.8-7.7); Neutrophils % 62.2 %; Nucleated Red Blood Cells % 0 %; Platelet Count 62 10^3/cmm (157-399); Red Blood Count 3.26 10^6/uL (3.85-5.65); Red Cell Distribution Width 14.6 % (12.1-15.1); White Blood Count 4.76 10^3/uL (3.29-11.43)
[2023-12-08 05:51] LABS: Alanine Aminotransferase 27 U/L (0-33); Alkaline Phosphatase 77 U/L (35-105); Anion Gap 13.9 (5-19); Aspartate Amino Transferase 69 U/L (0-32); Blood Urea Nitrogen 15 mg/dL (8-23); Calcium 7.8 mg/dL (8.5-10.5); Carbon Dioxide 20 mmol/L (22-29); Chloride 98 mmol/L (98-107); Globulin 2.8 g/dL (1.3-4.6); Glomerular Filtration Rate 45.1 mL/min (90-130); Glucose 137 mg/dL (65-115); Osmolality Calculated 269 mOsm/kg (285-295); Potassium 3.9 mmol/L (3.5-5.1); Sodium 128 mmol/L (136-145); Total Bilirubin 1.2 mg/dL (0.15-1.2); Total Protein 5.8 g/dL (6.6-8.7)
[2023-12-08 06:22] LABS: Glucose Point of Care 134 mg/dL (70-110)
[2023-12-08 07:50] VITALS: BP 112/54; PULSE 61; RESP 19; TEMP 36.7; O2SAT 96
[2023-12-08] MEDS: sodium chloride 1 gm Tablet PO ×2 (08:29→17:30)
[2023-12-08] MEDS: piperacillin-tazobactam 3.375 GM in sodium chloride 0.9% (plus) 50 ML IV ×2 (08:29→17:30)
[2023-12-08] MEDS: pantoprazole DR 40 mg Tablet PO (08:29)
[2023-12-08] MEDS: levothyroxine 25 mcg Tablet PO (08:32)
[2023-12-08] MEDS: NON-FORMULARY MEDICATION (Rifaximin [Xifaxan] 550 mg tablet) 550 EACH PO ×2 (08:32→17:30)
[2023-12-08] MEDS: FERROUS FUMARATE 324 EACH PO (08:33)
[2023-12-08 10:27] VITALS: O2SAT 96
--- NOTE | 2023-12-08 10:30 | PC.SOCIAL ---
IMM Update pg 2 of IMM Updated and reviewed w/ patient. Copy provided and copy dated, initialed and placed in chart.
[2023-12-08 11:47] LABS: Glucose Point of Care 339 mg/dL (70-110)
[2023-12-08 12:00] VITALS: BP 119/58; PULSE 64; RESP 19; TEMP 36.7; O2SAT 96
[2023-12-08] MEDS: insulin lispro 100 unit/1 mL SUBCUT ×3 (12:05→21:34)
--- NOTE | 2023-12-08 12:11 | PC.NURSE ---
Notified Dr. Perez Pltlt count 62, per Dr. Perez hold heparin shot.
--- NOTE | 2023-12-08 13:52 | P.PN_ITS ---
Subjective 2 Subjective: Seen this morning. Patient interested in going to rehab if needed. She states she feels very weak. Symptoms have improved however. Currently on Zosyn. Family member at bedside. Vitals/I&O/Wt Last Vital Signs Temp 98.0 F 12/08/23 12:00 Pulse 64 12/08/23 12:00 Resp 19 H 12/08/23 12:00 BP 119/58 12/08/23 12:00 Pulse Ox 96 12/08/23 12:00 O2 Del Method Room Air 12/08/23 12:00 12/07/23 12/08/23 12/08/23 22:59 06:59 14:59 Intake Total 510 / 1625 50 / 1675 930 / 930 Output Total 500 / 900 500 / 500 Balance 50 / 775 430 / 430 Weight last 48 hrs Weight 81.788 kg Weight 83.659 kg Weight 83.659 kg Physical Exam 2 Narrative: General: No acute distress, AO x3, Dehydrated, sick appearing HEENT: PERRLA, pupils bilaterally equal and reactive Chest: Normal vesicular breath sounds, no added sounds, equal good air entry bilaterally CVS: S1-S2 regular, no murmurs, no tachycardia, no gallops, no rubs Abdomen: Soft, nontender, no organomegaly, bowel sounds present, no flank tenderness Neuro: No focal deficits. Data 12/08/23 05:08 12/08/23 05:08 Micro: Microbiology 12/06/23 06:30 Urine Culture - Final Urine,Clean Catch 12/06/23 06:30 Bacterial Antigens - Final Urine Kidney A&P Assessment and plan (1) Sepsis: Present on admission. Source: UTI End organ damage: KELVIN/recurrent falls Lactic acid elevated on admission. Patient did receive full 30 mL/kg BW. Continue with normal saline at 100 cc/h. Monitor blood pressures. Keep mean artery pressure 65 mmHg. Blood culture, urine culture, procalcitonin, bacterial antigen. De-escalate antibiotics as per culture results. (2) Urinary tract infection: Qualifiers: Hematuria presence: with hematuria Urinary tract infection type: acute cystitis Qualified Code(s): N30.01 - Acute cystitis with hematuria (3) Acute kidney injury: (4) Hyponatremia: (5) High anion gap metabolic acidosis: (6) Diabetes: (7) Hypertension: (8) Thrombocytopenia: Chronic. Most likely in setting of ARELLANO. Continue to monitor daily. Hemoglobin stable. (9) Fall: (10) Generalized weakness: Plan 67-year-old lady with past medical history of Arellano, type 2 diabetes mellitus, hypertension presents to the ER because of recurrent falls and generalized weakness. She was recently diagnosed of UTI within the last 1 week and was sent home on oral Bactrim. Currently presents with persistent symptoms of UTI, acute kidney injury. Generalized weakness/fall: Improving. Out of bed to chair. In setting of UTI/sepsis. Physical therapy evaluation. UTI: Failure to outpatient Bactrim. Follow-up urine culture. Check blood culture. Procalcitonin mildly elevated. Appreciate trend. Continue with IV Zosyn for now. Cannot use ceftriaxone as patient is allergic with anaphylaxis for cefuroxime. Will de-escalate antibiotics as per culture results. Acute kidney injury: Most likely in setting sepsis, home use of Bactrim and spironolactone. Stop IV fluids today. KELVIN slightly worsening. Given significant edema on CT abdomen/pelvis in setting of liver dysfunction cannot rule out mild hepatorenal syndrome. IV Lasix 20 mg one-time. Repeat BMP in evening. Medical reconciliation done for nephrotoxic drugs. Replace 1 g of magnesium. Potassium stable for now. Hyponatremia: Stable. Continues to have hyponatremia. Monitor in afternoon. Switch to regular carb consistent diet. High anion gap metabolic acidosis: Resolving. Most likely in setting of KELVIN. Patient does have type 2 diabetes mellitus. Ketones negative. Type 2 diabetes mellitus: Takes glipizide at home along with metformin. Hold OHA. A1c 8.6 Sliding scale at low-dose protocol. ARELLANO: LFTs within normal limits for now. Continue with home dose of rifaximin. Holding off on spironolactone. CODE STATUS: Discussed in detail with the patient. Full code. Daughter will be the DPOA. Carb consistent diet Protonix for PUD prophylaxis Heparin for DVT prophylaxis. Discharge plan: Home with home health versus SNF depending on clinical improvement and PT evaluation. 12/07 ? KELVIN improving. Creatinine 1.2 today. ? AST 69, sodium improved to 128. ? Continue Zosyn at this time. ? Continue rifaximin. Spironolactone being held. ? Urine culture from 12/03 positive for E. coli pansensitive. ? Continue sliding scale insulin at low-dose protocol. ? Platelets 62. Will hold heparin subcu dose. ? PT recommends home health. ? Attestations 2 Medical Necessity Statement*: Continue to treat UTI with IV antibiotics. Awaiting physical therapy assessment. Diagnoses Sepsis A41.9 Urinary tract infection N30.01 Hematuria presence: with hematuria Urinary tract infection type: acute cystitis Acute kidney injury N17.9 Hyponatremia E87.1 High anion gap metabolic acidosis E87.29 Diabetes E11.9 Hypertension I10 Thrombocytopenia D69.6 Fall W19.XXXA Generalized weakness R53.1
[2023-12-08 16:24] VITALS: BP 147/63; PULSE 65; RESP 18; TEMP 36.7; O2SAT 97
[2023-12-08 17:10] LABS: Glucose Point of Care 272 mg/dL (70-110)
[2023-12-08 20:00] VITALS: BP 124/59; PULSE 67; RESP 17; TEMP 36.7; O2SAT 95
[2023-12-08 21:04] LABS: Glucose Point of Care 301 mg/dL (70-110)
[2023-12-09] VITALS (8 sets, daily range): BP systolic 109–145; BP diastolic 54–71; PULSE 58–64; RESP 16–18; TEMP 36.4–36.7; O2SAT 94–99
[2023-12-09] MEDS: heparin 5,000 unit/mL INJ 1 mL 5000 UNIT SUBCUT ×2 (00:32→12:29)
[2023-12-09] MEDS: piperacillin-tazobactam 3.375 GM in sodium chloride 0.9% (plus) 50 ML IV ×3 (00:33→16:35)
[2023-12-09 05:50] LABS: Basophils % 0.4 %; Eosinophils # 0.3 10^3/uL (0.0-0.8); Hematocrit 30.1 % (36-47); Lymphocytes % 21.6 %; Mean Corpuscular HGB Conc 33.2 g/dL (30-55); Mean Corpuscular Hemoglobin 30.1 pg (27-33); Mean Corpuscular Volume 90.7 fl (85-98); Mean Platelet Volume 12.5 fL (7.4-10.4); Monocytes # 0.5 10^3/uL (0.2-0.9); Monocytes % 11.6 %; Nucleated Red Blood Cells % 0 %; Platelet Count 62 10^3/cmm (157-399); Red Blood Count 3.32 10^6/uL (3.85-5.65); Red Cell Distribution Width 14.2 % (12.1-15.1)
[2023-12-09 06:05] LABS: Anion Gap 15.1 (5-19); Blood Urea Nitrogen 15 mg/dL (8-23); Calcium 8.1 mg/dL (8.5-10.5); Carbon Dioxide 21 mmol/L (22-29); Chloride 100 mmol/L (98-107); Glomerular Filtration Rate 45.1 mL/min (90-130); Glucose 134 mg/dL (65-115); Osmolality Calculated 277 mOsm/kg (285-295); Potassium 4.1 mmol/L (3.5-5.1); Sodium 132 mmol/L (136-145)
[2023-12-09 06:32] LABS: Glucose Point of Care 148 mg/dL (70-110)
[2023-12-09] MEDS: FERROUS FUMARATE 324 EACH PO (09:00)
[2023-12-09] MEDS: pantoprazole DR 40 mg Tablet PO (09:00)
[2023-12-09] MEDS: levothyroxine 25 mcg Tablet PO (09:00)
[2023-12-09] MEDS: sodium chloride 1 gm Tablet PO (09:00)
[2023-12-09] MEDS: ondansetron 2 mg/ML SDV 2 mL 4 MG IVP (09:01)
[2023-12-09] MEDS: insulin lispro 100 unit/1 mL SUBCUT ×4 (09:02→21:51)
[2023-12-09] MEDS: NON-FORMULARY MEDICATION (Rifaximin [Xifaxan] 550 mg tablet) 550 EACH PO ×2 (09:06→17:43)
--- NOTE | 2023-12-09 09:38 | P.CONIM_ITS ---
Providers/Reason For Consult 2 Consulting Physician/Specialty*: sunday lucas md / telenephrology Reason for Consult*: hyponatremia, renal insufficiency Requesting Physician: Dr Perez Attending Physician: Estrellita Perez MD Primary Care Provider: Kami Mcgee MD History of Present Illness History of Present Illness Phyllis Hall is a 67 year old female history of type 2 diabetes, hypothyroidism, ARELLANO. Patient presented after falling. She was seen in the ER recently was diagnosed with UTI and treated with Bactrim. On admission the patient had a sodium of 128 and an elevated lactic acid. She was fluid restricted given normal saline. Antibiotics changed to IV Zosyn from Bactrim. Patient abdominal CT scan and she was given Lasix. Patient was started on rifaximin. The patient was found to have mild thrombocytopenia, with platelets as low as 62. Renal was called to see the patient for renal insufficiency and to comment on her hyponatremia. Review of Systems 2 Narrative: Weak lethargic. The patient states that she drinks a lot of fluids at home she was not drinking a lot of fluids here. She has nausea she has weakness but she wants to go home she has no chest pain denies fevers or chills she is no longer lightheaded. She has not been walking much. She tells me she has foot drop and neuropathy and plantar fasciitis issues. For which she follows with a drainlayer Dr. Rivera. She denies difficulty urinating. Rest review of systems within normal limits. She says her appetite is somewhat improving but she did not eat the day before admission. Medications/Allergies Home Medications Medication Instructions Recorded Confirmed Last Taken Type Probiotic 1 cap PO DAILY PRN gut health 01/14/20 12/06/23 Unknown History lactulose 10 gram/15 mL oral See Rx Instructions .Route .COMPLEX 01/14/20 12/06/23 01/14/20 History solution levothyroxine 25 mcg tablet 25 mcg PO DAILY 01/14/20 12/06/23 07/01/21 History metformin 500 mg tablet See Rx Instructions .Route .COMPLEX 01/14/20 12/06/23 07/01/21 History ondansetron 4 mg disintegrating 4 mg PO Q6H PRN nausea and 01/14/20 12/06/23 Unknown Rx tablet vomiting #14 tabs rifaximin 550 mg tablet (Xifaxan) 550 mg PO BID 01/14/20 12/06/23 07/01/21 History spironolactone 50 mg tablet 100 mg PO DAILY 01/04/21 12/06/23 07/01/21 History glipizide 5 mg tablet, extended 5 mg PO DAILY 01/01/22 12/06/23 Unknown History release 24 hr pantoprazole 40 mg tablet,delayed 40 mg PO DAILY PRN Nausea And 01/01/22 12/06/23 Unknown History release (Protonix) Vomiting Custom Insoles #1 ea 09/11/22 12/06/23 Unknown Rx ondansetron HCl 4 mg tablet 4 mg PO Q8H PRN nausea and 12/05/23 12/06/23 Unknown Rx vomiting #14 tabs sulfamethoxazole 800 1 tab PO BID #14 tabs 12/05/23 12/06/23 Unknown Rx mg-trimethoprim 160 mg tablet (Bactrim DS) ferrous fumarate 324 mg (106 mg 324 mg PO DAILY 12/06/23 12/06/23 Unknown History iron) tablet (Ferrocite) sitagliptin phosphate 100 mg 100 mg PO DAILY 12/06/23 12/06/23 Unknown History tablet (Januvia) Allergies Allergy/AdvReac Type Severity Reaction Status Date / Time acetaminophen [From Percocet] Allergy ALGY-Swell Verified 12/06/23 20:13 Lip/Tongue/Throat carisoprodol [From Soma] Allergy ADR-Irritab Verified 12/06/23 20:13 le cefuroxime [From Ceftin] Allergy ALGY-Difficulty Verified 12/06/23 20:13 Breathing ciprofloxacin [From Cipro] Allergy ADR-Itching Verified 12/06/23 20:13 codeine Allergy ADR-Itching Verified 12/06/23 20:13 gabapentin [From Neurontin] Allergy ALGY-Wheezi Verified 12/06/23 20:13 ng NSAIDS (Non-Steroidal Allergy ALGY-Swell Verified 12/06/23 20:13 Anti-Inflamma Lip/Tongue/Throat oxaprozin [From Daypro] Allergy ADR-Itching Verified 12/06/23 20:13 oxycodone [From Percocet] Allergy ALGY-Swell Verified 12/06/23 20:13 Lip/Tongue/Throat pregabalin [From Lyrica] Allergy ALGY-Swell Verified 12/06/23 20:13 Lip/Tongue/Throat tramadol [From Ultram] Allergy ADR-Itching Verified 12/06/23 20:13 Current Medications Generic Name Dose Route Start Last Admin Trade Name Freq PRN Reason Stop Dose Admin Bisacodyl 10 mg 12/06/23 12:05 12/07/23 07:51 Bisacodyl 5 Mg Tablet PO 10 mg DAILY PRN Administration Constipation (see protocol) Protocol Heparin Sodium (Porcine) 5,000 unit 12/06/23 12:15 12/09/23 00:32 Heparin 5,000 Unit/Ml Inj 1 Ml SUBCUT 5,000 unit Q12H MANUELA Administration Piperacillin Sod/Tazobactam 50 mls @ 12.5 mls/hr 12/06/23 16:00 12/09/23 09:01 Sod 3.375 gm/ Sodium Chloride IV 12.5 mls/hr Q8H MANUELA Administration Protocol Insulin Human Lispro 0 unit 12/06/23 18:00 12/09/23 09:02 Insulin Lispro 100 Unit/1 Ml SUBCUT 2 unit WM&BEDTIME MANUELA Administration Protocol Levothyroxine Sodium 25 mcg 12/08/23 09:00 12/09/23 09:00 Levothyroxine 25 Mcg Tablet PO 25 mcg DAILY MANUELA Administration Magnesium Hydroxide 30 ml 12/06/23 12:05 12/07/23 17:08 Magnesium Hydroxide 30 Ml Udc PO 30 ml DAILY PRN Administration Constipation (see protocol) Protocol Morphine Sulfate 2 mg 12/06/23 12:05 12/07/23 23:32 Morphine 4 Mg/Ml Sdv 1 Ml IVP 2 mg Q4H PRN Administration SEVERE PAIN Non-Formulary Medication 324 mg 12/07/23 11:00 12/09/23 09:00 Ferrous Fumarate [Ferrocite] PO 324 mg DAILY MANUELA Administration Non-Formulary Medication 550 mg 12/07/23 18:00 12/09/23 09:06 Rifaximin [Xifaxan] PO 550 mg BID MANUELA Administration Ondansetron HCl 4 mg 12/06/23 10:15 12/09/23 09:01 Ondansetron 2 Mg/Ml Sdv 2 Ml IVP 4 mg Q6H PRN Administration NAUSEA AND VOMITING Pantoprazole Sodium 40 mg 12/06/23 12:05 12/09/23 09:[address] 40 Mg Tablet PO 40 mg DAILY MANUELA Administration Sodium Chloride 1 gm 12/07/23 18:00 12/09/23 09:00 Sodium Chloride 1 Gm Tablet PO 1 gm BID MANUELA Administration PFSH Acute 2 PFSH: Medical History Iron deficiency anemia 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 Obstructive sleep apnea Hypothyroidism Hyperlipidemia Type 2 diabetes mellitus Hypertension Surgical History History of esophagogastroduodenoscopy EGD with esophageal banding History of hysterectomy with unilateral oophorectomy History of laparoscopic cholecystectomy History of back surgery x 5 History of colonoscopy (~07/2019) History of x 3 History of appendectomy History of carpal tunnel release of both wrists Family History Denies family history of Anesthesia complication Bleeding disorder Social History Smoking and tobacco/nicotine status: never used tobacco/nicotine Vitals/I&O/Wt Last Vital Signs Temp 97.6 F 12/09/23 08:00 Pulse 61 12/09/23 08:00 Resp 17 12/09/23 08:00 BP 127/64 12/09/23 08:00 Pulse Ox 96 12/09/23 08:00 O2 Del Method Room Air 12/09/23 04:00 12/08/23 12/09/23 12/09/23 22:59 06:59 14:59 Intake Total 360 / 1290 100 / 1390 Balance 360 / 790 100 / 890 Weight last 48 hrs Weight 81.76 kg Weight 81.788 kg Weight 83.659 kg Physical Exam 2 Narrative: Obese lady in bed no apparent respiratory distress. Vital signs noted. HEENT normocephalic atraumatic. Neck is supple. Lungs dull bases. Heart regular. Positive S1-S2. Abdomen is soft positive bowel sounds. Extremities no significant edema. Neuro awake alert oriented x 3. Data 12/09/23 05:18 12/09/23 05:18 Micro: Microbiology 12/06/23 06:30 Urine Culture - Final Urine,Clean Catch A&P Assessment and plan (1) Hyponatremia: 67-year-old lady with recent UTI and Bactrim not feeling well who presented after a fall. 1. Hyponatremia improving. Patient was given fluids salt tablets and Lasix. She was also fluid restricted. At this time continue fluid restriction would avoid IV fluids would avoid Lasix. Will send urine electrolytes. 2. It appears that patient has some degree of hyponatremia at baseline reviewing her sodiums over the last couple of years have been between 129 and 139. 3. Acute kidney injury baseline creatinine 0.8 creatinine went up to 1.3 remained stable at 1.2. I was concerned that this could be due to Bactrim. However it has been stopped and she is not improving. CT scan reviewed has some cirrhosis and portal hypertension with small ascites and edema however no hydronephrosis. Urinalysis has 1+ protein 1+ ketones on admission 1+ blood 21-50 white cells Will send complements. Avoid nephrotoxic agents. Monitor urine output and chemistries. Will send urine for protein creatinine microalbumin. Given her abdominal pain and thrombocytopenia and anemia we will check an SPEP. Will also check CPK. 4. On admission anion gap was 15 with an albumin of 3-3.8. This is likely due to mild acute kidney injury, lactic acidosis which could have been from hypotension or metformin can also cause a lactic acidosis. Patient's bicarbonate has improved. Her current anion gap is 11. Will stop sodium chloride tablets. She has a normal TSH. Blood pressure is decent, adrenal insufficiency is less likely. Would monitor the patient overnight to ensure the renal function continues to improve and sodium is stable. Renal dose medications. The patient was seen and examined with the nurse using A/V equipment. The patient consented to telehealth visit. Patient's UTI is an E. coli that is pansensitive. Antibiotics as per medicine with attempt to put on oral antibiotics. Plan See above. Consult Attestations 2 Medical Necessity Statement: UTI, falls, hyponatremia, acute kidney injury Time Spent in Patient Care: Greater than 35 minutes (>than 50% of time spent in counselling and/or direct pt care on unit) . Coding Level of Care Code Acute Code for [facility] Diagnoses Hyponatremia E87.1
[2023-12-09 10:47] LABS: 25 Hydroxy Vitamin D 13 ng/mL (30-100)
[2023-12-09 11:06] LABS: Glucose Point of Care 255 mg/dL (70-110)
[2023-12-09 11:55] LABS: Potassium, Radom Urine 16 mmol/L; Urine Creatinine 69 mg/dL (28-217); Urine Random Chloride 29 mmol/L; Urine Random Sodium 43 mmol/L
--- NOTE | 2023-12-09 12:42 | P.PN_ITS ---
Subjective 2 Subjective: seen this morning cr improving pt feeling better says symptoms resolved. Vitals/I&O/Wt Last Vital Signs Temp 97.6 F 12/09/23 12:00 Pulse 61 12/09/23 12:00 Resp 16 12/09/23 12:00 BP 118/60 12/09/23 12:00 Pulse Ox 98 12/09/23 12:00 O2 Del Method Room Air 12/09/23 12:00 12/08/23 12/09/23 12/09/23 22:59 06:59 14:59 Intake Total 360 / 1290 100 / 1390 600 / 600 Balance 360 / 790 100 / 890 600 / 600 Weight last 48 hrs Weight 81.76 kg Weight 81.788 kg Physical Exam 2 Narrative: General: No acute distress, AO x3, HEENT: PERRLA, pupils bilaterally equal and reactive Chest: Normal vesicular breath sounds, no added sounds, equal good air entry bilaterally CVS: S1-S2 regular, no murmurs, no tachycardia, no gallops, no rubs Abdomen: Soft, nontender, no organomegaly, bowel sounds present, no flank tenderness Neuro: No focal deficits. Data 12/09/23 05:18 12/09/23 05:18 Micro: Microbiology 12/06/23 06:30 Urine Culture - Final Urine,Clean Catch A&P Assessment and plan (1) Sepsis: Present on admission. Source: UTI End organ damage: KELVIN/recurrent falls Lactic acid elevated on admission. Patient did receive full 30 mL/kg BW. Continue with normal saline at 100 cc/h. Monitor blood pressures. Keep mean artery pressure 65 mmHg. Blood culture, urine culture, procalcitonin, bacterial antigen. De-escalate antibiotics as per culture results. (2) Urinary tract infection: Qualifiers: Hematuria presence: with hematuria Urinary tract infection type: acute cystitis Qualified Code(s): N30.01 - Acute cystitis with hematuria (3) Acute kidney injury: (4) Hyponatremia: (5) High anion gap metabolic acidosis: (6) Diabetes: (7) Hypertension: (8) Thrombocytopenia: Chronic. Most likely in setting of ARELLANO. Continue to monitor daily. Hemoglobin stable. (9) Fall: (10) Generalized weakness: Plan 67-year-old lady with past medical history of Arellano, type 2 diabetes mellitus, hypertension presents to the ER because of recurrent falls and generalized weakness. She was recently diagnosed of UTI within the last 1 week and was sent home on oral Bactrim. Currently presents with persistent symptoms of UTI, acute kidney injury. Generalized weakness/fall: Improving. Out of bed to chair. In setting of UTI/sepsis. Physical therapy evaluation. UTI: Failure to outpatient Bactrim. Follow-up urine culture. Check blood culture. Procalcitonin mildly elevated. Appreciate trend. Continue with IV Zosyn for now. Cannot use ceftriaxone as patient is allergic with anaphylaxis for cefuroxime. Will de-escalate antibiotics as per culture results. Acute kidney injury: Most likely in setting sepsis, home use of Bactrim and spironolactone. Stop IV fluids today. KELVIN slightly worsening. Given significant edema on CT abdomen/pelvis in setting of liver dysfunction cannot rule out mild hepatorenal syndrome. IV Lasix 20 mg one-time. Repeat BMP in evening. Medical reconciliation done for nephrotoxic drugs. Replace 1 g of magnesium. Potassium stable for now. Hyponatremia: Stable. Continues to have hyponatremia. Monitor in afternoon. Switch to regular carb consistent diet. High anion gap metabolic acidosis: Resolving. Most likely in setting of KELVIN. Patient does have type 2 diabetes mellitus. Ketones negative. Type 2 diabetes mellitus: Takes glipizide at home along with metformin. Hold OHA. A1c 8.6 Sliding scale at low-dose protocol. ARELLANO: LFTs within normal limits for now. Continue with home dose of rifaximin. Holding off on spironolactone. CODE STATUS: Discussed in detail with the patient. Full code. Daughter will be the DPOA. Carb consistent diet Protonix for PUD prophylaxis Heparin for DVT prophylaxis. Discharge plan: Home with home health versus SNF depending on clinical improvement and PT evaluation. 12/07 ? KELVIN improving. Creatinine 1.2 today. ? AST 69, sodium improved to 129 ? stop zosyn ? Continue rifaximin. Spironolactone being held. ? Urine culture from 12/03 positive for E. coli pansensitive. ? Continue sliding scale insulin at low-dose protocol. ? Platelets 62. Will hold heparin subcu dose. ? PT recommends home health. ? thrombocytopenia and anemia present. spep, upep ordered - nephro consulted. appreciate recommendations - place on ceftriaxone daily - if renal fxn remains stable, plan to dc in am - pt to f/u with nephro and gi outpatient. Attestations 2 Medical Necessity Statement*: Continue hospitalize to monitor renal function. Diagnoses Sepsis A41.9 Urinary tract infection N30.01 Hematuria presence: with hematuria Urinary tract infection type: acute cystitis Acute kidney injury N17.9 Hyponatremia E87.1 High anion gap metabolic acidosis E87.29 Diabetes E11.9 Hypertension I10 Thrombocytopenia D69.6 Fall W19.XXXA Generalized weakness R53.1
[2023-12-09 17:15] LABS: Glucose Point of Care 230 mg/dL (70-110)
[2023-12-09 20:23] LABS: Glucose Point of Care 309 mg/dL (70-110)
[2023-12-10] MEDS: cyclobenzaprine 10 mg Tablet 5 MG PO (00:13)
[2023-12-10] MEDS: heparin 5,000 unit/mL INJ 1 mL 5000 UNIT SUBCUT ×2 (00:14→12:19)
[2023-12-10] MEDS: piperacillin-tazobactam 3.375 GM in sodium chloride 0.9% (plus) 50 ML IV ×2 (00:14→08:41)
[2023-12-10 04:00] VITALS: BP 117/64; PULSE 58; RESP 18; TEMP 36.4; O2SAT 96
[2023-12-10 05:33] LABS: Alanine Aminotransferase 28 U/L (0-33); Albumin Level 3.3 g/dL (3.5-5.2); Alkaline Phosphatase 104 U/L (35-105); Anion Gap 12.2 (5-19); Aspartate Amino Transferase 54 U/L (0-32); Blood Urea Nitrogen 14 mg/dL (8-23); Calcium 8.1 mg/dL (8.5-10.5); Carbon Dioxide 22 mmol/L (22-29); Chloride 106 mmol/L (98-107); Creatinine Clr Calc Pharmacy 63.3097; Globulin 2.2 g/dL (1.3-4.6); Glomerular Filtration Rate 49.8 mL/min (90-130); Glucose 132 mg/dL (65-115); Osmolality Calculated 284 mOsm/kg (285-295); Phosphorus 2.6 mg/dL (2.5-4.5); Potassium 4.2 mmol/L (3.5-5.1); Sodium 136 mmol/L (136-145); Total Bilirubin 0.9 mg/dL (0.15-1.2); Total Protein 5.5 g/dL (6.6-8.7)
[2023-12-10 05:38] LABS: Cortisol Random 4.98 ug/dL (2.47-19.5)
[2023-12-10 05:44] LABS: PROTEIN, TOTAL 6.2 g/dL (6.1-8.1)
[2023-12-10 06:28] LABS: Glucose Point of Care 125 mg/dL (70-110)
--- NOTE | 2023-12-10 06:59 | PM.PN ---
Subjective Subjective: The patient was seen and examined. Patient is awake and alert. No nausea or vomiting. States she had a headache earlier this morning. Had shortness of breath last night. He is eating well no difficulty urinating. Medications: Reviewed: Yes Medication Review Details: Current Medications Bisacodyl (Bisacodyl 5 Mg Tablet) 10 mg PO DAILY PRN; Protocol PRN Reason: Constipation (see protocol) Last Admin: 12/07/23 07:51 Dose: 10 mg Glucagon (Glucagon 1 Mg/Ml Kit 1 Ml) 1 mg IM ONCE PRN; Protocol PRN Reason: Adult Acute Hypoglycemia Nursing Prot. Heparin Sodium (Porcine) (Heparin 5,000 Unit/Ml Inj 1 Ml) 5,000 unit SUBCUT Q12H MANUELA Last Admin: 12/10/23 00:14 Dose: 5,000 unit Dextrose (D5w) 500 mls @ 0 mls/hr IV ONCE PRN; Protocol PRN Reason: Adult Acute Hypoglycemia Prot Dextrose (D10w) 125 mls @ 750 mls/hr IV PRN PRN; Protocol PRN Reason: Adult Acute Hypoglycemia Nursing Protocol Dextrose (D10w) 250 mls @ 1,000 mls/hr IV PRN PRN; Protocol PRN Reason: Adult Acute Hypoglycemia Nursing Protocol Piperacillin Sod/Tazobactam (Sod 3.375 gm/ Sodium Chloride) 50 mls @ 12.5 mls/hr IV Q8H MANUELA; Protocol Last Infusion: 12/10/23 05:48 Dose: Infused Insulin Human Lispro (Insulin Lispro 100 Unit/1 Ml) 0 unit SUBCUT WM&BEDTIME MANUELA; Protocol Last Admin: 12/09/23 21:51 Dose: 10 unit Lactulose (Lactulose Oral Liq 20 Gm/30 Ml Udc) 10 gm PO DAILY PRN; Protocol PRN Reason: Constipation (see protocol) Levothyroxine Sodium (Levothyroxine 25 Mcg Tablet) 25 mcg PO DAILY MANUELA Last Admin: 12/09/23 09:00 Dose: 25 mcg Magnesium Hydroxide (Magnesium Hydroxide 30 Ml Udc) 30 ml PO DAILY PRN; Protocol PRN Reason: Constipation (see protocol) Last Admin: 12/07/23 17:08 Dose: 30 ml Morphine Sulfate (Morphine 4 Mg/Ml Sdv 1 Ml) 2 mg IVP Q4H PRN PRN Reason: SEVERE PAIN Last Admin: 12/07/23 23:32 Dose: 2 mg Non-Formulary Medication (Ferrous Fumarate [Ferrocite]) 324 mg PO DAILY [facility] Last Admin: 12/09/23 09:00 Dose: 324 mg Non-Formulary Medication (Rifaximin [Xifaxan]) 550 mg PO BID [facility] Last Admin: 12/09/23 17:43 Dose: 550 mg Ondansetron HCl (Ondansetron 2 Mg/Ml Sdv 2 Ml) 4 mg IVP Q6H PRN PRN Reason: NAUSEA AND VOMITING Last Admin: 12/09/23 09:01 Dose: 4 mg Pantoprazole Sodium (Pantoprazole Dr 40 Mg Tablet) 40 mg PO DAILY [facility] Last Admin: 12/09/23 09:00 Dose: 40 mg Vitals/I&O/Wt Last Vital Signs Temp 97.5 F L 12/10/23 04:00 Pulse 58 L 12/10/23 04:00 Resp 18 12/10/23 04:00 BP 117/64 12/10/23 04:00 Pulse Ox 96 12/10/23 04:00 O2 Del Method Room Air 12/09/23 12:00 12/09/23 12/09/23 12/10/23 14:59 22:59 06:59 Intake Total 650 / 650 530 / 1180 170 / 1350 Balance 650 / 650 530 / 1180 170 / 1350 Weight last 48 hrs Weight 78.653 kg Weight 81.76 kg Physical Exam Narrative: Obese lady in bed no apparent respiratory distress. Vital signs noted. HEENT normocephalic atraumatic. Neck is supple. Lungs dull bases. Heart regular. Positive S1-S2. Abdomen is soft positive bowel sounds. Extremities no significant edema. Neuro awake alert oriented x 3. Data 12/09/23 05:18 12/10/23 04:40 A&P Assessment and plan (1) Hyponatremia: 67-year-old lady with recent UTI and Bactrim not feeling well who presented after a fall. 1. Hyponatremia improving. Patient was given fluids salt tablets and Lasix. She was also fluid restricted. At this time continue fluid restriction would avoid IV fluids would avoid Lasix. -Urine sodium 43. However her serum sodium is relatively normal. She does not appear to be drinking too much water. -Reviewing old labs her serum sodium of 139 is the best I have seen it. 2. Acute kidney injury baseline creatinine 0.8 creatinine went up to 1.3 remained stable at 1.2. I was concerned that this could be due to Bactrim. However it has been stopped and she is not improving. CT scan reviewed has some cirrhosis and portal hypertension with small ascites and edema however no hydronephrosis. Urinalysis has 1+ protein 1+ ketones on admission 1+ blood 21-50 white cells -Creatinine is now improved to 1.1 mg/dL Will send complements. Avoid nephrotoxic agents. Monitor urine output and chemistries. Will send urine for protein creatinine microalbumin. Given her abdominal pain and thrombocytopenia and anemia we will check an SPEP. Will also check CPK. 4. On admission anion gap was 15 with an albumin of 3-3.8. This is likely due to mild acute kidney injury, lactic acidosis which could have been from hypotension or metformin can also cause a lactic acidosis. Patient's bicarbonate has improved. She has a normal anion gap. Monitor her sodium off of sodium chloride tablets. She has a normal TSH. Blood pressure is decent, adrenal insufficiency is less likely. Though she has a low a.m. cortisol level. Consider further evaluation as per primary care team. Overall patient's sodium has improved. Renal functions improving. Continue fluid restriction Acid base status has improved. The patient was seen and examined with the nurse using A/V equipment. The patient consented to telehealth visit. Patient's UTI is an E. coli that is pansensitive. Antibiotics as per medicine Plan See above. Attestations Medical Necessity Statement*: Per medicine. Time Spent in Patient Care: 16 - 35 minutes (>than 50% of time spent in counselling and/or direct pt care on unit). Coding Level of Care Code Acute Code for [facility] Diagnoses Hyponatremia E87.1
[2023-12-10 07:43] LABS: Complement C3 124 mg/dL (90-180); Creatine Phosphokinase 119 U/L (26-192)
[2023-12-10 08:00] VITALS: BP 122/64; PULSE 59; RESP 16; TEMP 36.4; O2SAT 97
[2023-12-10] MEDS: levothyroxine 25 mcg Tablet PO (08:40)
[2023-12-10] MEDS: pantoprazole DR 40 mg Tablet PO (08:40)
[2023-12-10] MEDS: NON-FORMULARY MEDICATION (Rifaximin [Xifaxan] 550 mg tablet) 550 EACH PO (08:41)
[2023-12-10] MEDS: FERROUS FUMARATE 324 EACH PO (08:41)
[2023-12-10 11:05] LABS: Glucose Point of Care 203 mg/dL (70-110)
[2023-12-10 12:00] VITALS: BP 122/63; PULSE 60; RESP 16; TEMP 37.1; O2SAT 97
--- NOTE | 2023-12-10 12:09 | P.DS_ITS ---
Discharge Providers Date of Admission: 12/06/23 09:10 Date of Discharge: December 10, 2023 Attending Provider at Admission: Pablo Delong MD Attending Provider at Discharge: Estrellita Perez MD Primary Care Provider: Kami Mcgee MD Diagnoses at Discharge Discharge Diagnosis (1) Hyponatremia: Status: Resolved Reason for Visit Reason for Visit: Fall Hospital Course Hospital Course Patient was admitted for KELVIN most likely secondary to use of Bactrim and spironolactone. She was treated for KELVIN and was also diagnosed with a UTI during hospitalization. She was discharged home on Macrobid. Metformin was restarted however spironolactone was held. Patient has to follow-up with primary care doctor. UPEP SPEP and workup was ordered by nephrology. Patient to follow-up with primary care doctor for results. Discharging home in stable condition at this time. Of note there was a question of hepatorenal syndrome however that was ruled out. Patient was placed on a fluid restriction. Physical Exam Narrative: Obese lady in bed no apparent respiratory distress. Vital signs noted. HEENT normocephalic atraumatic. Neck is supple. Lungs dull bases. Heart regular. Positive S1-S2. Abdomen is soft positive bowel sounds. Extremities no significant edema. Neuro awake alert oriented x 3. Discharge Data Studies Completed and Pending Completed Studies During Hospitalization Category Date Time Status CT abdomen pelvis wo con [id number] Routine Cat Scan 12/06/23 12:[address] cervical spin wo con* [id number] Stat Cat Scan 12/06/23 06:[address] head wo con* [id number] Stat Cat Scan 12/06/23 06:31 Completed XR chest 1V portable [id number] Stat Exams 12/06/23 06:31 Completed Pending at discharge Category Date Time Status Blood Culture Stat Lab 12/06/23 08:07 Results Comprehensive Metabolic Panel AM LABS Lab 12/11/23 04:00 Ordered Comprehensive Metabolic Panel AM LABS Lab 12/11/23 04:00 Ordered Comprehensive Metabolic Panel AM LABS Lab 12/12/23 04:00 Ordered Comprehensive Metabolic Panel AM LABS Lab 12/12/23 04:00 Ordered Comprehensive Metabolic Panel AM LABS Lab 12/13/23 04:00 Ordered Immunofixation Serum Routine Lab 12/09/23 12:16 Received KAPPA/LAMBDA Light Free Serum Routine Lab 12/09/23 12:16 Received Magnesium AM LABS Lab 12/11/23 04:00 Ordered Magnesium AM LABS Lab 12/12/23 04:00 Ordered Phosphorus AM LABS Lab 12/11/23 04:00 Ordered Phosphorus AM LABS Lab 12/12/23 04:00 Ordered Serum Protien Electrophoresis [Total Protein Lab 12/09/23 12:16 Results Electrophoresis] Routine Radiology Impressions Cervical Spine CT 12/06/23 06:30 IMPRESSION: No acute findings. Chest X-Ray 12/06/23 06:31 IMPRESSION: No acute findings. Head CT 12/06/23 06:31 IMPRESSION: No acute intracranial abnormality. Abdomen/Pelvis CT 12/06/23 12:05 IMPRESSION: 1. Edema and inflammatory changes of stomach and duodenum without obstruction. 2. Cirrhosis with portal hypertension suspected. Small ascites. Edema and inflammatory changes in upper abdomen, retroperitoneum, lesser sac and mesentery is probably related to portal hypertension and gastritis, duodenitis. Superimposed pancreatitis or other etiology cannot be excluded. Recommend follow-up studies. Laboratory Results WBC 4.50 10^3/uL (3.29-11.43) 12/09/23 05:18 RBC 3.32 10^6/uL (3.85-5.65) L 12/09/23 05:18 Hgb 10.00 g/dL (11.27-16.99) L 12/09/23 05:18 Hct 30.1 % (36-47) L 12/09/23 05:18 MCV 90.7 fl (85-98) 12/09/23 05:18 MCH 30.1 pg (27-33) 12/09/23 05:18 MCHC 33.2 g/dL (30-55) 12/09/23 05:18 RDW 14.2 % (12.1-15.1) 12/09/23 05:18 Plt Count 62 10^3/cmm (157-399) L 12/09/23 05:18 MPV 12.5 fL (7.4-10.4) H 12/09/23 05:18 Neut % (Auto) 60.0 % 12/09/23 05:18 Lymph % (Auto) 21.6 % 12/09/23 05:18 [place] % (Auto) 11.6 % 12/09/23 05:18 Eos % (Auto) 6.0 % 12/09/23 05:18 Baso % (Auto) 0.4 % 12/09/23 05:18 Neut # (Auto) 2.70 10^3/uL (1.8-7.7) 12/09/23 05:18 Lymph # (Auto) 1.0 10^3/uL (0.8-4.8) 12/09/23 05:18 [place] # (Auto) 0.5 10^3/uL (0.2-0.9) 12/09/23 05:18 Eos # (Auto) 0.3 10^3/uL (0.0-0.8) 12/09/23 05:18 Baso # (Auto) 0.0 10^3/uL (0.0-0.1) 12/09/23 05:18 Nucleated RBC % (auto) 0 % 12/09/23 05:18 Nucleated RBCs # 0.0 /100WBC 12/09/23 05:18 Sodium 136 mmol/L (136-145) 12/10/23 04:40 Potassium 4.2 mmol/L (3.5-5.1) 12/10/23 04:40 Chloride 106 mmol/L (98-107) 12/10/23 04:40 Carbon Dioxide 22 mmol/L (22-29) 12/10/23 04:40 Anion Gap 12.2 (5-19) 12/10/23 04:40 BUN 14 mg/dL (8-23) 12/10/23 04:40 Creatinine 1.1 mg/dL (0.5-0.9) H 12/10/23 04:40 GFR Calculation 49.8 mL/min (90-130) L 12/10/23 04:40 Glucose 132 mg/dL (65-115) H 12/10/23 04:40 POC Glucose 203 mg/dL (70-110) H 12/10/23 10:48 Estimat Average Glucose 200 12/07/23 04:12 Hemoglobin A1c 8.6 % (4.0-6.0) H 12/07/23 04:12 Calculated Osmolality 284 mOsm/kg (285-295) L 12/10/23 04:40 Lactic Acid 3.5 mmol/L (0.5-2.2) H 12/06/23 06:43 Lactic Acid (Sepsis) 2.0 mmol/L (0.5-2.2) 12/06/23 09:57 Uric Acid 3.0 mg/dL (2.4-5.7) 12/09/23 05:18 Calcium 8.1 mg/dL (8.5-10.5) L 12/10/23 04:40 Phosphorus 2.6 mg/dL (2.5-4.5) 12/10/23 04:40 Magnesium 2.0 mg/dL (1.7-2.3) 12/10/23 04:40 Iron 38 ug/dL (37-145) 12/06/23 06:43 TIBC 408 mcg/dl 12/06/23 06:43 % Saturation 9.3 % (20-50) L 12/06/23 06:43 Unsat Iron Binding 370 ug/dL (112-347) H 12/06/23 06:43 Total Bilirubin 0.9 mg/dL (0.15-1.2) 12/10/23 04:40 AST 54 U/L (0-32) H 12/10/23 04:40 ALT 28 U/L (0-33) 12/10/23 04:40 Alkaline Phosphatase 104 U/L (35-105) 12/10/23 04:40 Creatine Kinase 119 U/L (26-192) 12/10/23 04:40 Total Protein 5.5 g/dL (6.6-8.7) L 12/10/23 04:40 Albumin 3.3 g/dL (3.5-5.2) L 12/10/23 04:40 Globulin 2.2 g/dL (1.3-4.6) 12/10/23 04:40 Triglycerides 142 mg/dL (0-150) 12/07/23 04:12 Cholesterol 145 mg/dL (0-200) 12/07/23 04:12 LDL Cholesterol, Calc 96 mg/dL (50-129) 12/07/23 04:12 HDL Cholesterol 21 mg/dL (60-100) L 12/07/23 04:12 LDL/HDL Ratio 4.57 RATIO (0.00-3.22) H 12/07/23 04:12 Cholesterol/HDL Ratio 6.90 mg/dL (0.0-4.40) H 12/07/23 04:12 Vitamin B12 531 pg/mL (232-1245) 12/06/23 06:43 25-OH Vitamin D Total 13 ng/mL (30-100) L 12/09/23 05:18 Folate 12.3 ng/mL (4.8-37.3) 12/07/23 04:12 Procalcitonin 1.38 ng/mL (0-0.5) H 12/07/23 04:12 TSH 1.12 uIU/mL (0.27-4.20) 12/06/23 06:43 Random Cortisol 4.98 ug/dL (2.47-19.5) 12/10/23 04:40 Urine Color Dark yellow (Yellow) A 12/06/23 06:30 Urine Appearance Clear (CLEAR) 12/06/23 06:30 Urine pH 6.0 (5-7) 12/06/23 06:30 Ur Specific [place] 1.018 (1.005-1.030) 12/06/23 06:30 Urine Protein 1+ (Negative) A 12/06/23 06:30 Urine Glucose (UA) Negative (Normal) 12/06/23 06:30 Urine Ketones 1+ (Negative) H 12/06/23 06:30 Urine Blood 1+ (Negative) A 12/06/23 06:30 Urine Nitrate Negative (Negative) 12/06/23 06:30 Urine Bilirubin Negative (Negative) 12/06/23 06:30 Urine Urobilinogen 1.0 mg/dL (Negative) 12/06/23 06:30 Ur Leukocyte Esterase 1+ (Negative) A 12/06/23 06:30 Urine RBC 0-2 /hpf (0-2) 12/06/23 06:30 Urine WBC 21-50 /hpf (0-5) H 12/06/23 06:30 Ur Squamous Epith Cells 0-5 /hpf (0-5) 12/06/23 06:30 Amorphous Sediment Not Reportable 12/06/23 06:30 Urine Bacteria None seen /hpf (NONE) 12/06/23 06:30 Hyaline Casts 3.30 /lpf 12/06/23 06:30 Ur Random Sodium 43 mmol/L 12/09/23 11:12 Ur Random Potassium 16 mmol/L 12/09/23 11:12 Ur Random Chloride 29 mmol/L 12/09/23 11:12 Urine Creatinine 69 mg/dL (28-217) 12/09/23 11:12 Serum Ketones Negative (Negative) 12/06/23 06:43 Complement C3 124 mg/dL (90-180) 12/10/23 04:40 Complement C4 17 mg/dL (10-40) 12/10/23 04:40 Vitals Last Vital Signs Temp 97.6 F 12/10/23 08:00 Pulse 59 L 12/10/23 08:00 Resp 16 12/10/23 08:00 BP 122/64 12/10/23 08:00 Pulse Ox 97 12/10/23 08:00 O2 Del Method Room Air 12/09/23 12:00 Discharge Plan Discharge Patient Disposition: Home Health Service Condition: Stable Prescriptions: New nitrofurantoin monohyd/m-cryst [Macrobid] 100 mg capsule 100 mg PO BID Qty: 4 0RF Rx Instructions: must administer with a meal/food Continued pantoprazole [Protonix] 40 mg tablet,delayed release (DR/EC) 40 mg PO DAILY PRN (Reason: Nausea And Vomiting) (DME) Custom Insoles See Rx Instructions .Route .MEDSUPPLY Qty: 1 0RF Rx Instructions: As directed metformin 500 mg tablet See Rx Instructions .ROUTE .COMPLEX Rx Instructions: 500mg po qam and 1000mg po bedtime levothyroxine 25 mcg tablet 25 mcg PO DAILY lactulose 10 gram/15 mL solution See Rx Instructions .ROUTE .COMPLEX Rx Instructions: 2 tablespoons po prn Xifaxan 550 mg tablet 550 mg PO BID Probiotic 1 cap PO DAILY PRN (Reason: gut health) ondansetron 4 mg tablet,disintegrating 4 mg PO Q6H PRN (Reason: nausea and vomiting) Qty: 14 0RF glipizide 5 mg tablet extended release 24hr 5 mg PO DAILY ondansetron HCl 4 mg tablet 4 mg PO Q8H PRN (Reason: nausea and vomiting) Qty: 14 0RF Januvia 100 mg tablet 100 mg PO DAILY ferrous fumarate [Ferrocite] 324 mg (106 mg iron) Tablet 324 mg PO DAILY Held spironolactone 50 mg tablet 100 mg PO DAILY Hold Instructions: see pcp Discontinued sulfamethoxazole-trimethoprim [Bactrim DS] 800-160 mg tablet 1 tab PO BID Qty: 14 0RF Discharge Orders: Discharge Order (Routine); Ordered 12/10/23 Ordered By: Estrellita Perez Other Ambulatory Orders: DME: Walker (Order) Location: None Selected Ordered By: Estrellita Perez DME: Walker (Order) Location: None Selected Ordered By: Estrellita Perez Basic Metabolic Panel (Routine) Timeframe: 1 Week Facility: [facility] - Location: Lab - Main Lab Ordered By: Estrellita Perez Referrals: [facility] Home Care ([facility]) [Outside] (This [facility] has accepted you for Home Health for Physical therapy at home. They will call you to schedule appointment time. ) Kami Mcgee MD [Primary Care Provider] - 12/19/23 11:00 am Discharge Diet: Cardiac and Diabetic Discharge Activity: As per PT/OT instructions Patient Instructions: Fluconazole (By mouth), Nitrofurantoin Combination (By mouth), A-fib (Atrial Fibrillation) (GEN), Thrombocytopenia (DC), Opioid Safety Discharge Attestations Time Spent in Discharge Care*: greater than 30 min Quality Metrics Clinical Quality Measures [ No reported AMI, CVA or VTE this stay] Coding Level of Care Code Acute Code for Chg Fwd Diagnoses Hyponatremia E87.1
--- NOTE | 2023-12-10 12:14 | PC.SOCIAL ---
IMM Update Pg. 2 of IMM updated and reviewed with patient who verbalized understanding. Copy provided.
[2023-12-10 12:15] LABS: KAPPA LIGHT CHAIN, FREE, SERUM 30.4 mg/L (3.3-19.4); KAPPA/LAMBDA LIGHT CHAINS FREE 1.16 (0.26-1.65); LAMBDA LIGHT CHAIN, FREE, SERU 26.2 mg/L (5.7-26.3)
[2023-12-10] MEDS: insulin lispro 100 unit/1 mL SUBCUT (12:20)
[2023-12-10 14:55] VITALS: BP 122/63; PULSE 60; RESP 16; TEMP 37.1; O2SAT 97
[2023-12-11 10:29] LABS: ALBUMIN 3.4 g/dL (3.8-4.8); ALPHA 1 GLOBULIN 0.4 g/dL (0.2-0.3); ALPHA 2 GLOBULIN 0.8 g/dL (0.5-0.9); BETA 1 GLOBULIN 0.4 g/dL (0.4-0.6); BETA 2 GLOBULIN 0.4 g/dL (0.2-0.5); GAMMA GLOBULIN 0.9 g/dL (0.8-1.7)
[2023-12-13 22:14] LABS: Immunofixation Serum Normal pattern.
== END 2023-12-10 14:55 | disposition home health service (06) | DRG 872 ==
LOC: ER 07:42 → MEDSURG 09:34
PROVIDERS: Internal Medicine Nephrology; Admitting Provider Student in an Organized Health Care Education/Training Program; Emergency Provider Family Medicine; PCP Family Medicine; Visit Provider Internal Medicine
DX: A41.9 Sepsis, unspecified organism (principal); N30.01 Acute cystitis with hematuria; E87.1 Hypo-osmolality and hyponatremia; E87.20 Acidosis, unspecified; R65.20 Severe sepsis without septic shock; E11.42 Type 2 diabetes mellitus with diabetic polyneuropathy; E03.9 Hypothyroidism, unspecified; K75.81 Nonalcoholic steatohepatitis (NASH); K74.69 Other cirrhosis of liver; R29.6 Repeated falls; Z79.84 Long term (current) use of oral hypoglycemic drugs; G47.33 Obstructive sleep apnea (adult) (pediatric); E78.5 Hyperlipidemia, unspecified; I10 Essential (primary) hypertension; Z90.710 Acquired absence of both cervix and uterus; D69.59 Other secondary thrombocytopenia; E86.0 Dehydration; M21.379 Foot drop, unspecified foot; B96.20 Unspecified Escherichia coli [E. coli] as the cause of diseases classified elsewhere
CPT/HCPCS: 36415; 36416; 70450; 71045; 72125; 74176; 80048; 80053; 80061; 81001; 82009; 82306; 82436; 82533; 82550; 82570; 82607; 82746; 82962; 83036; 83540; 83550; 83605; 83735; 83883; 84100; 84133; 84145; 84155; 84165; 84300; 84443; 84550; 85025; 86160; 86334; 86403; 87040; 87077; 87086; 87186; 93005; 94664; 96365; 96372; 97116; 97161; 99285; J1644; J1815; J1940; J2270; J2405; J2543; J3475; J7030; Q0162; Q3014

== ENCOUNTER 2024-01-08 09:33 | Outpatient (CLI) | payer MEDICARE, MEDICAID, SELFPAY ==
[2024-01-08 10:03] LABS: Basophils % 0.7 %; Eosinophils # 0.3 10^3/uL (0.0-0.8); Eosinophils % 5.5 %; Hematocrit 34.2 % (36-47); Lymphocytes # 0.7 10^3/uL (0.8-4.8); Lymphocytes % 11.2 %; Mean Corpuscular Hemoglobin 30.1 pg (27-33); Mean Corpuscular Volume 91.2 fl (85-98); Mean Platelet Volume 11.7 fL (7.4-10.4); Monocytes # 0.3 10^3/uL (0.2-0.9); Monocytes % 5.6 %; Neutrophils # 4.63 10^3/uL (1.8-7.7); Neutrophils % 76.5 %; Nucleated Red Blood Cells % 0 %; Platelet Count 90 10^3/cmm (157-399); Red Blood Count 3.75 10^6/uL (3.85-5.65); Red Cell Distribution Width 14.6 % (12.1-15.1); White Blood Count 6.05 10^3/uL (3.29-11.43)
[2024-01-08 10:27] LABS: Iron 53 ug/dL (37-145)
[2024-01-08 10:29] LABS: Estmated Average Glucose 148; Hemoglobin A1C 6.8 % (4.0-6.0)
== END 2024-01-08 09:34 | disposition home or self-care (01) ==
LOC: LAB 09:37
PROVIDERS: PCP Family Medicine; Visit Provider Family Medicine
DX: D64.9 Anemia, unspecified (principal); E11.9 Type 2 diabetes mellitus without complications
CPT/HCPCS: 36415; 83036; 83540; 85025

== ENCOUNTER 2024-02-05 11:52 | Outpatient (CLI) | payer MEDICARE, MEDICAID, SELFPAY ==
[2024-02-05 12:38] LABS: Bilirubin Urine Negative (Negative); Blood Urine Negative (Negative); Glucose Urine UA Negative (Normal); Ketones Urine Negative (Negative); Leukocyte Esterase Urine 2+ (Negative); Nitrate Urine Negative (Negative); Protein Urine Negative (Negative); Specific Gravity, Urine 1.007 (1.005-1.030); Urine Appearance Clear (CLEAR); Urine Color Yellow (Yellow); Urobilinogen Urine 0.2 mg/dL (Negative); pH Urine 6.5 (5-7)
[2024-02-05 12:40] LABS: Add Urine Microscopic? YES; Bacteria Urine 2+ /hpf; Hyaline Casts Urine 0.81 /lpf; RBC Urine 0-2 /hpf (0-2); Squamous Epithelial Cell Urine 0-5 /hpf (0-5); WBC Urine >100 /hpf (0-5)
[2024-02-05 12:46] LABS: Add Urine Culture? No
== END 2024-02-05 11:53 | disposition home or self-care (01) ==
LOC: LAB 11:54
PROVIDERS: PCP Family Medicine; Visit Provider Family Medicine
DX: R30.0 Dysuria (principal)
CPT/HCPCS: 81001; 87077; 87086; 87186

== ENCOUNTER 2024-05-03 09:29 | Outpatient (CLI) | payer MEDICARE, MEDICAID, SELFPAY ==
[2024-05-03 09:57] LABS: Basophils # 0.1 10^3/uL (0.0-0.1); Basophils % 0.8 %; Eosinophils # 0.4 10^3/uL (0.0-0.8); Eosinophils % 5.5 %; Hematocrit 37.3 % (36-47); Lymphocytes # 0.9 10^3/uL (0.8-4.8); Lymphocytes % 11.4 %; Mean Corpuscular Hemoglobin 30.9 pg (27-33); Mean Corpuscular Volume 90.8 fl (85-98); Mean Platelet Volume 11.9 fL (7.4-10.4); Monocytes # 0.5 10^3/uL (0.2-0.9); Monocytes % 6.8 %; Neutrophils # 5.73 10^3/uL (1.8-7.7); Nucleated Red Blood Cells % 0 %; Platelet Count 89 10^3/cmm (157-399); Red Blood Count 4.11 10^6/uL (3.85-5.65); Red Cell Distribution Width 13.3 % (12.1-15.1); White Blood Count 7.64 10^3/uL (3.29-11.43)
[2024-05-03 10:18] LABS: Creatinine Urine, Random 132 mg/dL (28-217); Microalbum Creatinine Ratio Ur 8 mg/dL (0-20); Microalbumin Random Urine 1 ug/dL (0-20)
[2024-05-03 10:21] LABS: Estmated Average Glucose 200; Hemoglobin A1C 8.6 % (4.0-6.0)
[2024-05-03 11:19] LABS: Alanine Aminotransferase 34 U/L (0-33); Albumin Level 4.1 g/dL (3.5-5.2); Alkaline Phosphatase 152 U/L (35-105); Anion Gap 16.7 (5-19); Aspartate Amino Transferase 41 U/L (0-32); Blood Urea Nitrogen 11 mg/dL (8-23); Calcium 10.2 mg/dL (8.5-10.5); Carbon Dioxide 20 mmol/L (22-29); Chloride 99 mmol/L (98-107); Chol HDL Ratio 4.47 mg/dL (0.0-4.40); Cholesterol 219 mg/dL (0-200); Globulin 2.8 g/dL (1.3-4.6); Glomerular Filtration Rate 62.6 mL/min (90-130); Glucose 266 mg/dL (65-115); HDL Cholesterol 49 mg/dL (60-100); Iron 76 ug/dL (37-145); LDL Cholesterol Calculated 130 mg/dL (50-129); LDL HDL Ratio 2.65 RATIO (0.00-3.22); Osmolality Calculated 281 mOsm/kg (285-295); Potassium 4.7 mmol/L (3.5-5.1); Sodium 131 mmol/L (136-145); Thyroid Stimulating Hormone 1.92 uIU/mL (0.27-4.20); Total Protein 6.9 g/dL (6.6-8.7); Triglycerides 202 mg/dL (0-150)
== END 2024-05-03 09:30 | disposition home or self-care (01) ==
LOC: LAB 09:35
PROVIDERS: PCP Family Medicine; Visit Provider Family Medicine
DX: D64.9 Anemia, unspecified (principal); E11.9 Type 2 diabetes mellitus without complications; E03.9 Hypothyroidism, unspecified; I10 Essential (primary) hypertension; E78.00 Pure hypercholesterolemia, unspecified
CPT/HCPCS: 36415; 80053; 80061; 82044; 83036; 83540; 84443; 85025

== ENCOUNTER 2024-05-18 13:11 | Outpatient (CLI) | payer MEDICARE, MEDICAID, SELFPAY ==
--- NOTE | 2024-05-18 13:16 | XR_ITS ---
WS: [id number] DEXA (DUAL ENERGY X-RAY ABSORPTIOMETRY) Bone mineral density was performed using a Meetric[employer] machine. HISTORY: ASYMPTOMATIC MENOPAUSAL STATE COMPARISON: None available. Lumbar spine BMD (L1-L4): 1.068 g/cm2 T score: -0.9 Z score: 0.3 Total hip BMD: Left: 0.867 g/cm2. T score: -1.1 Z score: -0.1 Right: 0.889 g/cm2. T score: -0.9 Z score: 0.1 10 year probability of a major osteoporotic fracture is 16.2%. XR/XR DEXA axial skeleton* [id number] IMPRESSION: OSTEOPENIA based upon the WHO classification for females.
== END 2024-05-18 13:12 | disposition home or self-care (01) ==
LOC: RAD 13:13
PROVIDERS: PCP Family Medicine; Visit Provider Family Medicine
DX: Z78.0 Asymptomatic menopausal state (principal); M85.80 Other specified disorders of bone density and structure, unspecified site
CPT/HCPCS: 77080

== ENCOUNTER → 2024-06-29 10:46 | Outpatient (BNVA) | payer MEDICARE, MEDICAID, SELFPAY | PROVIDERS: PCP Family Medicine; Visit Provider Podiatrist Foot & Ankle Surgery | DX: M21.621 Bunionette of right foot (principal); M21.622 Bunionette of left foot; M72.2 Plantar fascial fibromatosis; M21.41 Flat foot [pes planus] (acquired), right foot; M21.42 Flat foot [pes planus] (acquired), left foot; E11.42 Type 2 diabetes mellitus with diabetic polyneuropathy; M20.41 Other hammer toe(s) (acquired), right foot; M20.42 Other hammer toe(s) (acquired), left foot | CPT/HCPCS: 99214 ==

== ENCOUNTER 2024-08-03 08:12 | Outpatient (CLI) | payer MEDICARE, MEDICAID, SELFPAY ==
[2024-08-03 10:08] LABS: Alanine Aminotransferase 27 U/L (0-33); Albumin Level 4.3 g/dL (3.5-5.2); Alkaline Phosphatase 110 U/L (35-105); Anion Gap 18.8 (5-19); Aspartate Amino Transferase 34 U/L (0-32); Blood Urea Nitrogen 12 mg/dL (8-23); Calcium 10.7 mg/dL (8.5-10.5); Carbon Dioxide 20 mmol/L (22-29); Chloride 99 mmol/L (98-107); Globulin 2.9 g/dL (1.3-4.6); Glomerular Filtration Rate 62.6 mL/min (90-130); Glucose 124 mg/dL (65-115); Osmolality Calculated 279 mOsm/kg (285-295); Potassium 3.8 mmol/L (3.5-5.1); Sodium 134 mmol/L (136-145); Total Bilirubin 1.4 mg/dL (0.15-1.2); Total Protein 7.2 g/dL (6.6-8.7)
[2024-08-03 10:13] LABS: Estmated Average Glucose 103; Hemoglobin A1C 5.2 % (4.0-6.0)
== END 2024-08-03 08:13 | disposition home or self-care (01) ==
PROVIDERS: PCP Family Medicine; Visit Provider Family Medicine
DX: E11.9 Type 2 diabetes mellitus without complications (principal)
CPT/HCPCS: 36415; 80053; 83036

== ENCOUNTER 2024-08-20 10:50 | Outpatient (CLI) | payer MEDICARE, MEDICAID, SELFPAY ==
--- NOTE | 2024-08-20 | MM_ITS ---
WS: [id number] BILATERAL SCREENING DIGITAL TOMOSYNTHESIS MAMMOGRAM WITH CAD HISTORY: ANNUAL SCREENING COMPARISON: 08/19/2023, 06/24/2022 Bilateral CC and MLO views with tomosynthesis and synthetic mammography submitted. Computer aided detection analyzed. Breast composition: The breasts are almost entirely fatty. No suspicious masses, microcalcifications or architectural distortion. Numerous coarse benign calcifications in each breast. MM/MM scr BI tomosynthesis [id number] IMPRESSION: BI-RADS: 2 - Benign. FOLLOW UP: 1 Year Follow-up
== END 2024-08-20 10:51 | disposition home or self-care (01) ==
LOC: RAD 10:51
PROVIDERS: PCP Family Medicine; Visit Provider Nurse Practitioner Family
DX: Z12.31 Encounter for screening mammogram for malignant neoplasm of breast (principal)
CPT/HCPCS: 77063; 77067

== ENCOUNTER → 2024-09-07 09:09 | Outpatient (BNVA) | payer MEDICARE, MEDICAID, SELFPAY | PROVIDERS: PCP Family Medicine; Visit Provider Podiatrist Foot & Ankle Surgery | DX: E11.42 Type 2 diabetes mellitus with diabetic polyneuropathy (principal); L60.3 Nail dystrophy; E11.8 Type 2 diabetes mellitus with unspecified complications; M21.621 Bunionette of right foot; M21.622 Bunionette of left foot; M21.41 Flat foot [pes planus] (acquired), right foot; M21.42 Flat foot [pes planus] (acquired), left foot; M20.41 Other hammer toe(s) (acquired), right foot; M20.42 Other hammer toe(s) (acquired), left foot | CPT/HCPCS: 11721; 99213 ==

== ENCOUNTER 2025-01-10 17:52 | Emergency (ER) | payer MEDICARE, MEDICAID, SELFPAY ==
[2025-01-10 17:53] VITALS: BP 137/60; PULSE 78; TEMP 36.4; O2SAT 98; BMI 29.8
--- OUTSIDE RECORDS SUMMARY | 2025-01-10 17:58 | XMS_ITS | Data Portability ---
Author Organization [facility] Emanuel [facility]ita [facility] Address [address] [facility] [address] [place] [address] Care Team Providers Care Box Sealing Machine Catcher Name Role Phone KOMALTR SONIA Primary Care Provider Assessment Encounter Date Assessment Date Assessment LastModified by Organization Details LastModified Time 06/07/2024 06/07/2024 symptoms no c/w UTI or diverticuliti s. counseled on s/s of each and of concern. [email or web address] Not available 06/07/2024 13:50:43 Plan of Treatment Reminders Order Date Submit Date Provider Last Modified By Organization Details Last Modified Time Details Appointments None recorded. Lab culture, urine 2024 025 Mr Banana [place] [address], [facility] [address] [place], [address], 5 23:18:50 urinalysis, dipstick 2024 025 [facility] ([facility]), [address] [place] [address], [address], 5 09:43:13 urinalysis, dipstick 2024 025 [email or web address] [facility] ([facility]), [address] [place] [address], [address], 5 14:15:06 culture, urine 2024 025 [facility], [address] [place] [address], [address], [place], [address], 5 23:50:09 urinalysis, dipstick 2024 025 [email or web address] [facility] ([facility] [address] [place], [address], 5 11:54:24 culture, urine 2024 025 [facility], [address] [facility] [address], [address], [place], [address], 5 00:24:14 SARS CoV 2 RNA, QL, nasopharynx [email or web address] ([facility]), [address] [place], [address], 4 18:40:03 Referral None recorded. Procedures None recorded. Surgeries None recorded. Imaging XR, kidney + ureter + bladder 2024 025 [facility] ([facility]), [address] [place], [address], 5 17:50:26 Medication Orders fluconazole 150 mg tablet 2024 025 [facility], [address] [place] [address], [address], 5 09:51:32 Paxlovid 300 mg (150 mg x 2)-100 mg tablets in a dose pack 2023 025 [facility], [address] [place] [address], [address], 5 11:22:33 Patient TargetsNo targets recorded. Patient InstructionsNo instructions recorded. Reason for Referral None Reported. Results Created Date Observation Date Name Description Value Unit Range Abnormal Flag Note LastModifiedBy Organization Detail LastModifiedTime 09/22/19 24 09/22/2023 SARS CoV 2 RNA, QL, nasop haryn x COVID positi ve Not Available [facility] ([facility]) [address] [place], [address], 09/22/2023 18:28:03 04/15/19 25 04/16/2024 CULTU RE, URINE , ROUTI NE culture, urine, routine SEE NOTE CULTU RE, URINE , ROUTI NE Micro Numbe r: [id number] Test Statu s: Final Speci men Sourc e: Urine , clean catch Speci men Quali ty: Adequ ate Resul t: Mixed genit al zackery isola gloria. These super ficia l bacte yao are not indic ative of a urina ry tract infec tion. No furth er organ ism ident ifica tion is warra nted on this speci men. If clini sangeeta indic ated, recol lect clean -catc h, mid-s tream urine and trans siria immed iatel y to Urine Cultu re Trans port Tube. Not Available [facility] [address] [place], [address], 04/17/2024 00:24:14 04/15/19 25 04/15/2024 urina lysis , dipst ick Leukocytes Trace Not Available [facility] ( [facility] [address] [place], [address], 04/15/2024 11:14:53 04/15/19 25 04/15/2024 urina lysis , dipst ick Nitrite negati ve Not Available [facility] ([facility]) [address] [place], [address], 04/15/2024 11:14:53 04/15/19 25 04/15/2024 urina lysis , dipst ick Urobilinogen .2 Not Available [facility] ([facility]) [address] [place], [address], 04/15/2024 11:14:53 04/15/19 25 04/15/2024 urina lysis , dipst ick Protein Negati ve Not Available [facility] ([facility]) [address] [place], [address], 04/15/2024 11:14:53 04/15/19 25 04/15/2024 urina lysis , dipst ick pH 6.0 Not Available [facility] [address] [place], [address], 04/15/2024 11:14:53 04/15/19 25 04/15/2024 urina lysis , dipst ick Blood Negati ve Not Available [facility] ([facility]) [address] [place], [address], 04/15/2024 11:14:53 04/15/19 25 04/15/2024 urina lysis , dipst ick Specific Mcbrides 1.025 Not Available [facility] ( [facility]) [address] [place], [address], 04/15/2024 11:14:53 04/15/19 25 04/15/2024 urina lysis , dipst ick Ketone Negati ve Not Available [facility] ([facility]) [address] [place], [address], 04/15/2024 11:14:53 04/15/19 25 04/15/2024 urina lysis , dipst ick Bilirubin Negati ve Not Available [facility] ([facility]) [address] [place], [address], 04/15/2024 11:14:53 04/15/19 25 04/15/2024 urina lysis , dipst ick Glucose Negati ve Not Available [facility] ([facility]) [address] [place], [address], 04/15/2024 11:14:53 04/15/19 25 04/15/2024 urina lysis , dipst ick Appearance Clear Not Available [facility] ( [facility]) [address] [place], [address], 04/15/2024 11:14:53 04/15/19 25 04/15/2024 urina lysis , dipst ick Color Yellow Not Available [facility] ([facility]) [address] [place], [address], 04/15/2024 11:14:53 06/08/19 25 06/08/2024 CULTU RE, URINE , ROUTI NE culture, urine, routine SEE NOTE CULTU RE, URINE , ROUTI NE Micro Numbe r: [id number] Test Statu s: Final Speci men Sourc e: Urine Speci men Quali ty: Adequ ate Resul t: Mixed genit al zackery isola gloria. These super ficia l bacte yao are not indic ative of a urina ry tract infec tion. No furth er organ ism ident ifica tion is warra nted on this speci men. If clini sangeeta indic ated, recol lect clean -catc h, mid-s tream urine and trans siria immed iatel y to Urine Cultu re Trans port Tube. Not Available [facility] [address] [place], [address], 06/08/2024 23:50:09 06/08/19 25 06/07/2024 urina lysis , dipst ick Leukocytes Trace Not Available [facility] ( [facility]) [address] [place], [address], 06/07/2024 13:17:16 06/08/19 25 06/07/2024 urina lysis , dipst ick Nitrite negati ve Not Available [facility] ([facility]) [address] [place], [address], 06/07/2024 13:17:16 06/08/19 25 06/07/2024 urina lysis , dipst ick Urobilinogen .2 Not Available [facility] ([facility]) [address] [place], [address], 06/07/2024 13:17:16 06/08/19 25 06/07/2024 urina lysis , dipst ick Protein Negati ve Not Available [facility] ([facility]) [address] [place], [address], 06/07/2024 13:17:16 06/08/19 25 06/07/2024 urina lysis , dipst ick pH 6.0 Not Available [facility] [address] [place], [address], 06/07/2024 13:17:16 06/08/19 25 06/07/2024 urina lysis , dipst ick Blood Negati ve Not Available [facility] ([facility]) [address] [place], [address], 06/07/2024 13:17:16 06/08/19 25 06/07/2024 urina lysis , dipst ick Specific Mcbrides 1.005 Not Available [facility] ( [facility]) [address] [place], [address], 06/07/2024 13:17:16 06/08/19 25 06/07/2024 urina lysis , dipst ick Ketone Negati ve Not Available [facility] ([facility]) [address] [place], [address], 06/07/2024 13:17:16 06/08/19 25 06/07/2024 urina lysis , dipst ick Bilirubin Negati ve Not Available [facility] ([facility]) [address] [place], [address], 06/07/2024 13:17:16 06/08/19 25 06/07/2024 urina lysis , dipst ick Color Yellow Not Available [facility] ([facility]) [address] [place], [address], 06/07/2024 13:17:16 06/08/19 25 06/07/2024 urina lysis , dipst ick Appearance Clear Not Available [facility] ([facility]) [address] [place], [address], 06/07/2024 13:17:16 06/08/19 25 06/07/2024 urina lysis , dipst ick Glucose Negati ve Not Available [facility] ([facility]) [address] [place], [address], 06/07/2024 13:17:16 11/24/19 25 11/24/2024 CULTU RE, URINE , ROUTI NE culture, urine, routine SEE NOTE CULTU RE, URINE , ROUTI NE Micro Numbe r: [id number] Test Statu s: Final Speci men Sourc e: Urine , clean catch Speci men Quali ty: Adequ ate Resul t: Less than 10,00 0 CFU/m L of singl e Gram posit neri organ ism isola gloria. No furth er testi ng will be perfo rmed. If clini sangeeta indic ated, recol lecti on using a metho d to minim ize conta minat ion, with promp t trans siria to Urine Cultu re Trans port Tube, is recom rian d. Not Available [facility] [address] [place], [address], 11/24/2024 23:18:50 11/24/19 25 11/23/2024 urina lysis , dipst ick Leukocytes Negati ve Not Available [facility] ([facility]) [address] [place], [address], 11/23/2024 09:22:06 11/24/19 25 11/23/2024 urina lysis , dipst ick Nitrite negati ve Not Available [facility] ([facility]) [address] [place], [address], 11/23/2024 09:22:06 11/24/19 25 11/23/2024 urina lysis , dipst ick Urobilinogen .2 Not Available [facility] ([facility]) [address] [place], [address], 11/23/2024 09:22:06 11/24/19 25 11/23/2024 urina lysis , dipst ick Protein Negati ve Not Available [facility] ([facility]) [address] [place], [address], 11/23/2024 09:22:06 11/24/19 25 11/23/2024 urina lysis , dipst ick pH 6.0 Not Available [facility] [address] [place], [address], 11/23/2024 09:22:06 11/24/19 25 11/23/2024 urina lysis , dipst ick Blood Negati ve Not Available [facility] ([facility]) [address] [place], [address], 11/23/2024 09:22:06 11/24/19 25 11/23/2024 urina lysis , dipst ick Specific Mcbrides 1.020 Not Available [facility] ( [facility]) [address] [place], [address], 11/23/2024 09:22:06 11/24/19 25 11/23/2024 urina lysis , dipst ick Ketone Negati ve Not Available [facility] ([facility]) [address] [place], [address], 11/23/2024 09:22:06 11/24/19 25 11/23/2024 urina lysis , dipst ick Bilirubin Negati ve Not Available [facility] ([facility]) [address] [place], [address], 11/23/2024 09:22:06 11/24/19 25 11/23/2024 urina lysis , dipst ick Glucose Negati ve Not Available [facility] ([facility]) [address] [place], [address], 11/23/2024 09:22:06 11/24/19 25 11/23/2024 urina lysis , dipst ick Appearance Clear Not Available [facility] ([facility]) [address] [place], [address], 11/23/2024 09:22:06 11/24/1911/23/2024 urina lysis , dipst ick Color Dark Yellow Not Available [facility] ([facility]) [address] [place], [address], 11/23/2024 09:22:06 11/24/19 25 11/23/2024 XR, kidne y + urete r + bladd er No observ ation record ed. [facility] [address] [place], [address], 11/24/2024 11:03:40 Result Notes None recorded. Problems Name Problem SNOMED Code Status Onset Date Resolution Date Notes Provider Name and Address Organization Details Recorded Time section Active 2021 . .1978,1979 ,1980; 02/21/2022 7:26AM by Tesha Miranda, Office Visit; Promoted; acuity set as *; Not Available [facility] 03:16:38 Benign essential hypertens ion 7855630 Active 2021 Hypertensi on; 02/21/2022 7:25AM by Tesha Miranda, Office Visit; Promoted; acuity set as *; Not Available [facility] 3 03:16:41 Gastroeso phageal reflux disease 396204498 Active 2021 GERD; 02/21/2022 7:25AM by Tesha Miranda, Office Visit; Promoted; acuity set as *; Not Available [facility] 3 03:16:41 Other carpal synostosi s Active 2021 Carpal tunnel repair; 02/21/2022 7:26AM by Tesha Miranda, Office Visit; Promoted; acuity set as *; Not Available [facility] 3 03:16:42 Type 2 diabetes mellitus without complicat ion 408665285 Active 2021 Diabetes Mellitus, Type II; 02/21/2022 7:26AM by Tesha Miranda, Office Visit; Promoted; acuity set as *; Not Available [facility] 3 03:16:44 Appendect tianna Active 2021 Appendecto my; 02/21/2022 7:25AM by Tesha Miranda, Office Visit; Promoted; acuity set as *; Not Available [facility] 3 03:16:44 Gallbladd er endoscopy Active 2021 Gallbladde r Removed; 02/21/2022 7:26AM by Tesha Miranda, Office Visit; Promoted; acuity set as *; Not Available [facility] 3 03:16:45 Hysterect tianna Active 2021 Hysterecto my; 02/21/2022 7:26AM by Tesha Miranda, Office Visit; Promoted; acuity set as *; Not Available [facility] 3 03:16:46 Candidias is of vagina 44551212 Active 2024 Wojciech Quintana MD [address] [place] [address], [address] , [facility], [facility] 5 11:38:20 Dysuria 45952017 Active 2024 Wojciech Quintana MD [address] [place] [address] [place], [address] , [facility] 5 11:09:18 Chronic constipat ion 770064793 Active 2024 Lawrence Loyola DO [address] [place], [address] , [facility] 5 13:50:18 Problem Notes None recorded. Medical Equipment None Reported. Allergies Allergen ID Allergen Name Allergen Category Reaction Reaction Severity Criticality Documentation Date Start Date Code Code System Note Provider Name and Address Organization Details Recorded Time 12261 Tylox medicatio n headache Not available Not available 09/28/202219700 5 RxNorm React ion: Heada pedro, Nause a; Comme nt: Recor ded 02/21 7:26A M by Tesha Miranda, Offic e Visit ; Promo gloria; Signi fican ce: *; ; Not Available [facility] 3 02:24:23 12825 codeine hydrochlo ride Not available headache Not available Not available 09/28/2022 57099 66 RxNorm React ion: Heada pedro, Nause a; Comme nt: Recor ded 02/21 7:25A M by Tesha Miranda, Offic e Visit ; Promo gloria; Signi fican ce: *; ; Not Available [facility] 3 02:24:23 60973 Soma Compound with Codeine medicatio n confusion Not available Not available 09/28/2022 19634 0 RxNorm React ion: Confu davon; Comme nt: Recor ded 02/21 7:26A M by Tesha Miranda, Offic e Visit ; Promo gloria; Signi fican ce: *; ; Not Available [facility] 3 02:24:23 15818 Neurontin medicatio n Not available Not available Not available 09/28/2022 92949 8 RxNorm Comme nt: Recor ded 02/21 7:25A M by Tesha Miranda, Offic e Visit ; Promo gloria; Signi fican ce: *; Reaso n: Drug aller gy; ; Not Available [facility] 3 02:24:27 61484 ibuprofen medicatio n hives Not available Not available 09/28/2022 5640 RxNorm React ion: Hives ; Comme nt: Recor ded 02/21 7:26A M by Tesha Miranda, Offic e Visit ; Promo gloria; Signi fican ce: *; ; Not Available [facility] 3 02:24:27 38905 Ceftin medicatio n Not available Not available Not available 09/28/2022 49114 6 RxNorm Comme nt: Recor ded 02/21 7:25A M by Tesha Miranda, Offic e Visit ; Promo gloria; Signi fican ce: *; ; Not Available [facility] 3 02:24:27 24198 Lyrica medicatio n Not available Not available Not available 09/28/2022 24696 1 RxNorm Comme nt: Recor ded 02/21 7:25A M by Tesha Miranda, Offic e Visit ; Promo gloria; Signi fican ce: *; Reaso n: Drug aller gy; ; Not Available [facility] 3 02:24:27 4721 Soma medicatio n other severe Not available 08/24/2022 57736 2 RxNorm Sailaja lemus [facility] 3 10:00:11 4722 Cipro medicatio n Not available Not available Not available 08/24/2022 97318 3 RxNorm Sailaja lemus [facility] 3 10:09:33 4723 Substance with sulfonami de structure and antibacte rial mechanism of action (substanc e) medicatio n Not available Not available Not available 08/24/2022 11659 8003 SNOMED Sailaja lemus [facility] 3 10:09:39 4724 Daypro medicatio n Not available Not available Not available 08/24/2022 39414 1 RxNorm Sailaja lemus [facility] 3 10:09:48 4725 Ultram medicatio n Not available Not available Not available 08/24/2022 76404 6 RxNorm [facility] 3 10:09:56 4726 Non-stero idal anti-infl ammatory agent (substanc e) medicatio n Not available Not available Not available 08/24/2022 42690 5008 SNOMED [facility] Michelle [facility] 3 10:10:02 4727 acetamino phen / oxycodone medicatio n Not available Not available Not available 08/24/2022 34248 3 RxNorm [facility] 3 10:10:23 4728 gabapenti n medicatio n Not available Not available Not available 08/24/2022 47747 RxNorm [facility] 3 10:10:54 Medications Name Sig Start Date Stop Date Status Note LastModified by Organization Details LastModified Time cyclobenz aprine 10 mg tablet at bedtime 09/21 completed Not Available Not Available Not Available amoxicill in 500 mg capsule take 1 capsule BY MOUTH THREE TIMES DAILY for 7 days 09/21 completed Not Available Not Available Not Available metformin 500 mg tablet TAKE 2 TABLETS BY MOUTH EVERY MORNING and ONE EVERY EVENING with meals active Not Available Not Available No t Available Augmentin 875 mg-125 mg tablet Take 1 tablet every 12 hours by oral route for 7 days. 09/21 completed Not Available Not Available Not Available Toprol XL 25 mg tablet,ex tended release daily 09/21 completed Not Available Not Available Not Available fluconazo le 150 mg tablet Take 1 tablet every 72 hours by oral route for 1 day. 11/23 completed Not Available Not Available Not Available valacyclo vir 1 gram tablet TAKE 1 TABLET BY MOUTH THREE TIMES DAILY 09/21 completed Not Available Not Available Not Available hydrocodo ne 5 mg-acetam inophen 325 mg tablet every four hours, as needed 09/21 completed written Not Available Not Available Not Available prednison e 20 mg tablet as directed 09/21 completed Daily dose in mg beginnin g today: 60, 40, 40, 20, 20 Not Available Not Available Not Available glipizide ER 5 mg tablet, extended release 24 hr TAKE 2 TABLETS BY MOUTH EVERY DAY active Not Available Not Available No t Available omeprazol e 40 mg capsule,d elayed release TAKE 1 CAPSULE BY MOUTH EVERY DAY 30 MINUTES BEFORE BREAKFAS T ON EMPTY STOMACH active Not Available Not Available No t Available levothyro xine 25 mcg tablet TAKE 1 TABLET BY MOUTH EVERY DAY active Not Available Not Available No t Available Macrobid 100 mg capsule Take 1 capsule every 12 hours by oral route for 7 days. 09/21 completed Not Available Not Available Not Available OneTouch Ultra Test strips CHECK BLOOD SUGAR ONCE A DAY active Not Available Not Available No t Available Accupril 40 mg tablet daily active Not Available Not Available Not Available benzonata te 100 mg capsule take 1 capsule BY MOUTH THREE TIMES DAILY 09/21 completed Not Available Not Available Not Available pantopraz ole 40 mg tablet,de layed release TAKE 1 TABLET BY MOUTH EVERY DAY ON EMPTY STOMACH HALF HOUR BEFORE BREAKFAS T active Not Available Not Available No t Available montel[address] st 10 mg tablet daily 09/21 completed as needed for congesti on and drainage Not Available Not Available Not Available fluticaso ne propionat e 50 mcg/actua tion nasal spray,manuel pension daily 09/21 completed 2 sprasy to each nare twice a day for 2 wks - then decrease to 1 spray each nostril BID Not Available Not Available Not Available loratadin e 10 mg tablet TAKE 1 TABLET BY MOUTH EVERY DAY active Not Available Not Available No t Available spironola ctone 50 mg tablet TAKE 2 TABLETS BY MOUTH EVERY DAY active Not Available Not Available No t Available lactulose 10 gram/15 mL oral solution TAKE 15ML BY MOUTH THREE TIMES DAILY. TITRATE DOWN TO TWICE DAILY OR EVERY DAY NEEDED TO TARGET 2-3 SOFT STOOLS PER DAY active Not Available Not Available No t Available Aspirin EC at bedtime 09/21 completed Not Available Not Available Not Available Dora daily 2013 active Not Available Not Available Not Avai lable Januvia 50 mg tablet TAKE 1 TABLET BY MOUTH EVERY DAY 06/07 completed Not Available Not Available Not Available Xifaxan 550 mg tablet 04/15 completed Not Available Not Available Not Available OneTouch Ultra2 Meter USE TO test blood sugar ONCE PER DAY active Not Available Not Available No t Available OneTouch Delica Plus Lancet 33 gauge CHECK BLOOD SUGAR EVERY DAY active Not Available Not Available No t Available Paxlovid 300 mg (150 mg x 2)-100 mg tablets in a dose pack Take 3 tablets every 12 hours by oral route for 5 days. 04/15 completed Not Available Not Available Not Available Ramon active Not Available Not Avai lable Not Available Vitals Date Recorded Body height Body mass index (BMI) Body weight Oxygen saturation Oxygen saturation in Arterial blood by Pulse oximetry Heart rate Respiratory rate Body temperature Systolic And Diastolic Provider Name and Address Organization Details Last Updated DateTime 5 146.05 cm 35.5 kg/m2 07554.9 3 g 97 % 97 % 84 /min 16 /min 98.2 [degF] 160/100 mm[Hg] Clair Johnson [facility] 5 11:18:05 Date Recorded Body height Body mass index (BMI) Body weight Body temperature Heart rate Oxygen saturation Oxygen saturation in Arterial blood by Pulse oximetry Systolic And Diastolic Provider Name and Address Organization Details Last Updated DateTime 5 146.05 cm 35.1 kg/m2 64088.7 4 g 97.6 [degF] 79 /min 97 % 97 % 146/82 mm[Hg] Ellyn Cunningham [facility] 5 13:23:40 Date Recorded Body height Body mass index (BMI) Body weight Oxygen saturation Oxygen saturation in Arterial blood by Pulse oximetry Heart rate Respiratory rate Body temperature Systolic And Diastolic Provider Name and Address Organization Details Last Updated DateTime 4 146.05 cm 36.6 kg/m2 99364.8 9 g 98 % 98 % 88 /min 16 /min 98.9 [degF] 202/88 mm[Hg] Chaim Macdonald [facility] 4 18:20:01 Date Recorded Body height Body mass index (BMI) Body weight Body temperature Respiratory rate Heart rate Oxygen saturation Oxygen saturation in Arterial blood by Pulse oximetry Systolic And Diastolic Provider Name and Address Organization Details Last Updated DateTime 3 146.05 cm 38.1 kg/m2 88754.0 3 g 97.8 [degF] 19 /min 81 /min 92 % 92 % 140/76 mm[Hg] BRYANNAJUDITH CISSE [facility] 3 12:51:23 Date Recorded Body height Body mass index (BMI) Body weight Respiratory rate Oxygen saturation Oxygen saturation in Arterial blood by Pulse oximetry Heart rate Body temperature Systolic And Diastolic Provider Name and Address Organization Details Last Updated DateTime 5 146.05 cm 30 kg/m2 56889.2 2 g 17 /min 96 % 96 % 70 /min 97.9 [degF] 138/82 mm[Hg] [facility] 5 09:19:44 Social History Question Answer Notes LastModified by Organizat ion Details LastModified Time Tobacco Smoking Status Never Smoker [facility] 04/15/2024 11:16:22 What Was The Date Of Your Most Recent Tobacco Screening? 11/23/2024 [email or web address] Information not available 11/23/2024 Sex: Unknown Functional Status Question Answer Note LastModified by Organization D etails LastModified Time Do you or have you ever used any other forms of tobacco or nicotine? No [email or web address] Information not available 11/23/2024 Do you or have you ever used any nicotine-free cigarettes, vape, or chewing tobacco? No [email or web address] Information not available 11/23/2024 Mental Status None recorded. Family History Nothing Reported. Medical History No medical history recorded. Gynecological HistoryNo gynecological history recorded. Obstetrics History GPAL:G 0 P 0 0 0 0 Immunizations Vaccine Type Date Status Note Provider Nam e and Address Organization Details Recorded Time Influenza, split virus, trivalent, preservative 2 completed Not Available [facility] 09/28/2022 02:39:23 Pneumococcal conjugate PCV 13 5 completed CARLO [facility] [place] 09/22/2023 18:06:10 Past Encounters Encounter ID Performer Location Encounter Start Date Encounter Closed Date Diagnosis/Indication Diagnosis SNOMED-CT Code Diagnosis ICD10 Code Diagnosis IMO Codes Diagnosis Note [id number] SRINIVAS FERRARO [facility] ([facility]) [address] [place] [phone] 5 08/24/2022 09:46:32 09/04/2022 08:24:30 Dysuria [id number] R30.0 Acute urin rosa tract infection [id number] N39.0 Start Macrobid BID x7 days, take as prescribed . Diflucan sent for yeast infection, take at end of antibiotic s if having symptoms. Encouraged to increase water intake and decrease caffeine and sugary drinks. If still having symptoms after completion of antibiotic s, recommend a urine re-check. Urine was sent for culture. Will call with culture results. If worsening condition or no improvemen t in 3-5 days, recommend returning for re-evaluat ion. Patient verbalized understand ing. [id number] SRINIVAS FERRARO [facility] ([facility]) [address] [place] [address] [phone] 09/27/2022 12:20:01 09/27/2022 16:45:53 Obstruction of salivary duct [id number] K11.8 Encouraged patient to suck on hard candies and sour candies to increase saliva production . Discussed with patient that she can use heat for relief as well. No facial swelling was noted today. Encouraged patient to follow up with PCP next week if not seeing any improvemen t. Patient verbalized understand ing. [id number] TOOTIE BRANDON PA-C [facility] ([facility]) [address] [place] [address] [phone] 5 09/22/2023 18:03:13 09/22/2023 18:46:08 Cough [id number] R05.9 COVID-19 [id number] U07.1 [id number] Wojciech Quintana MD [facility] ([facility]) [address] [place] [address] 04/15/2024 11:11:06 04/16/2024 10:25:47 Dysuria [id number] R30.0 UA was not consistent with infection. Culture is pending. Candidiasis of vagina [id number] B37.31 History is more suggestive of a yeast infection. Will treat with fluconazol e. Follow-up with PCP if symptoms do not improve. [id number] Lawrence Loyola DO [facility] ([facility]) [address] [place] [address] 06/07/2024 13:11:55 06/07/2024 14:23:26 Dysuria [id number] R30.0 Chronic constipation 236 [id number] K59.09 acute flair likely 2/2 mounjaro. increase lactulose to 30-45ml BiD. increase fluids. activity. fiber. pt to not increase mounjaro until gut back to normal. [id number] LOUISA MELCHOR [facility] ([facility]) [address] [place] [address] 11/23/2024 09:10:29 11/23/2024 10:58:26 Dysuria [id number] R30.0 [id number] Abdominal discomfort 433 33047 R10.84 [id number] Mostly likely from constipati on. Patient encouraged to increase po fluids and use lactulose 1-2 times daily for the next few days. RTC with any new or worsening symptoms. Health Concerns Section Related Observation LastModified by Organization Detai ls LastModified Time None Recorded Concern Status LastModified by Organization Details LastModified Time None Recorded Advance Directives Directive None Recorded Payers Insurance Date Sequence Insurance Name Policy Number Policy Miles Covered Member ID Miles Member ID Guarantor Name 11/23/2024 2 [place] Phyllis Hall [id number] Phyllis Hall 11/23/2024 1 [facility] (MEDICARE REPLACEMENT/A DVANTAGE - PPO) Phyllis Hall [id number] Phyllis Hall 11/23/2024 [place] Phyllis Hall [id number] Phyllis Hall Notes Date Note Type Note Provider Name and Address Organization Details Recorded Time 09/27/2022 text/html Musculoskeletal PainReported by PatientHPIFor quality, patient reportsdull. For location, patient reportsright neck. For severity, patient reportsno change. For duration, patient reportspresent <1 month.ROS as noted in the HPI walk-in, PCP Dr. Mcgee Patient c/o neck pain. Right side. No known injury. She woke up yesterday with it hurting. Pain has started spreading to her right side of her face. Hugh Duggan MD [address] [place] [address], [phone], [facility] 09/27/2022 13:17:49 09/22/2023 text/html Sore ThroatRepor gloria by Patient CoughReported by PatientHPIFor severity, patient reportspain with coughbut reportsmoderate. For quality, patient reportsproductive. For duration, patient reportsacute (<3 weeks). For onset/timing, patient reportssudden. For context, patient reportsnon-smoker. For modifying factors, (cough syrup not helping). started with upset jardegq9i days. TOOTIE BRANDON PA-C [address] [place] [address], [phone], [facility] 09/22/2023 18:42:30 04/15/2024 text/html Vaginal/Vulvar ProblemReported by Patient Lower Urinary Tract Symptoms (LUTS)Reported by PatientROS as noted in the HPI walk in patientpatient is here today for vaginal itching/burning nausea, lower back pain that started about a week ago. Reports episodes that she has a yeast infection. Wojciech Quintana MD [address] [place] [address], [phone], [facility] 04/21/2024 11:09:53 06/07/2024 text/html walk in ptPt is having lower back pain and abdominal pain for 2 days pt admits to starting mounjaro 5 wks ago. since then, some nausea and progressive constipation.no fevers or chills. no vomiting. no diarrhea. no bloody or dark tarry stools. admits to taking stool softeners regularly and prn lactulose, but lactulose has not been helping with BMs. Lawrence Loyola, DO [address] [place], [phone], [facility], Michael. 06/07/2024 13:53:42 11/23/2024 text/html ROS as noted in the HPI walk-in; PCP Na Gardner Patient c/o urinary symptoms. Difficulty urinating, lower abdominal pain and pressure and lower back pain. Hx of constipation since starting MOunjaro. Had an episode of diarrhea yesterday. Has not had regular bowel movements without the use of lactulose which she states she uses 2-3 times a week. LOUISA MELCHOR [address] [place], [phone], [facility] Josh, LJose. 11/23/2024 10:52:18 OBGyn Episode No OBEpisode recorded.
--- NOTE | 2025-01-10 18:07 | W.ED.ABDPA2 ---
HPI - Abdominal Pain General: Chief Complaint: Abdominal Pain Stated Complaint: Rib pain Time Seen by Provider: 01/10/25 17:54 History of Present Illness: 69-year-old female with a history of cirrhosis, obstructive sleep apnea, hypothyroidism, hyperlipidemia, type 2 diabetes and hypertension who presents to the emergency room with left-sided rib pain. She says she has been moving a bunch of furniture and now it hurts when she breathes. Hurts when she moves. Hurts with palpation. No cough. No fevers. No abdominal pain. She says it hurts so bad it makes her nauseous but she has not vomited. No tenderness on her abdomen on exam. Related Data Home Medications ?Medication ?Instructions ?Recorded ?Confirmed Probiotic 1 cap PO DAILY PRN gut health 01/14/20 09/07/24 lactulose 10 gram/15 mL oral See Rx Instructions .Route .COMPLEX 01/14/20 09/07/24 solution levothyroxine 25 mcg tablet 25 mcg PO DAILY 01/14/20 09/07/24 metformin 500 mg tablet See Rx Instructions .Route .COMPLEX 01/14/20 09/07/24 rifaximin 550 mg tablet (Xifaxan) 550 mg PO BID 01/14/20 09/07/24 spironolactone 50 mg tablet 100 mg PO DAILY 01/04/21 09/07/24 Held on 12/10/23. Instructions: see pcp glipizide 5 mg tablet, extended 5 mg PO DAILY 01/01/22 09/07/24 release 24 hr pantoprazole 40 mg tablet,delayed 40 mg PO DAILY PRN Nausea And 01/01/22 09/07/24 release (Protonix) Vomiting ferrous fumarate 324 mg (106 mg 324 mg PO DAILY 12/06/23 09/07/24 iron) tablet (Ferrocite) sitagliptin phosphate 100 mg 100 mg PO DAILY 12/06/23 09/07/24 tablet (Januvia) Previous Rx's ?Medication ?Instructions ?Recorded ondansetron 4 mg disintegrating 4 mg PO Q6H PRN nausea and 01/14/20 tablet vomiting #14 tabs Custom Insoles #1 ea 09/11/22 ondansetron HCl 4 mg tablet 4 mg PO Q8H PRN nausea and 12/05/23 vomiting #14 tabs nitrofurantoin 100 mg PO BID #4 caps 12/10/23 monohydrate/macrocrystals 100 mg capsule (Macrobid) 1 pair of custom insoles with #1 ea 06/29/24 diabetic shoes dexamethasone 6 mg tablet 6 mg PO DAILY 5 days #5 tabs 01/10/25 ondansetron 4 mg disintegrating 4 mg PO Q8H PRN nausea and 01/10/25 tablet vomiting #10 tabs Allergies Allergy/AdvReac Type Severity Reaction Status Date / Time acetaminophen (From Percocet) Allergy ALGY-Swell Verified 01/10/25 18:00 Lip/Tongue/Throat carisoprodol (From Soma) Allergy ADR-Irritab Verified 01/10/25 18:00 le cefuroxime (From Ceftin) Allergy ALGY-Difficulty Verified 01/10/25 18:00 Breathing ciprofloxacin (From Cipro) Allergy ADR-Itching Verified 01/10/25 18:00 codeine Allergy ADR-Itching Verified 01/10/25 18:00 gabapentin (From Neurontin) Allergy ALGY-Wheezi Verified 01/10/25 18:00 ng NSAIDS (Non-Steroidal Allergy ALGY-Swell Verified 01/10/25 18:00 Anti-Inflamma Lip/Tongue/Throat oxaprozin (From Daypro) Allergy ADR-Itching Verified 01/10/25 18:00 oxycodone (From Percocet) Allergy ALGY-Swell Verified 01/10/25 18:00 Lip/Tongue/Throat pregabalin (From Lyrica) Allergy ALGY-Swell Verified 01/10/25 18:00 Lip/Tongue/Throat tramadol (From Ultram) Allergy ADR-Itching Verified 01/10/25 18:00 Review of Systems Narrative: Constitutional symptoms: Negative except as documented in HPI. Skin symptoms: Negative except as documented in HPI. Eye symptoms: Negative except as documented in HPI. ENMT symptoms: Negative except as documented in HPI. Respiratory symptoms: Negative except as documented in HPI. Cardiovascular symptoms: Negative except as documented in HPI. Gastrointestinal symptoms: Negative except as documented in HPI. Genitourinary symptoms: Negative except as documented in HPI. Musculoskeletal symptoms: Negative except as documented in HPI. Neurologic symptoms: Negative except as documented in HPI. Psychiatric symptoms: Negative except as documented in HPI. Endocrine symptoms: Negative except as documented in HPI. PFSH ED PFSH: Medical History (Updated 01/10/25 @ 18:55 by Helen Love MD) Iron deficiency anemia 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 Obstructive sleep apnea Hypothyroidism Hyperlipidemia Type 2 diabetes mellitus Hypertension Surgical History History of esophagogastroduodenoscopy EGD with esophageal banding History of hysterectomy with unilateral oophorectomy History of laparoscopic cholecystectomy History of back surgery x 5 History of colonoscopy (~07/2019) History of x 3 History of appendectomy History of carpal tunnel release of both wrists Family History Denies family history of Anesthesia complication Bleeding disorder Social History Smoking and tobacco/nicotine status: unknown if used tobacco/nicotine Physical Exam Narrative: EXAM NARRATIVE: General: Alert, no acute distress. Skin: Warm, dry. Head: Normocephalic, atraumatic. Neck: Supple, trachea midline. Eye: Extraocular movements are intact. Ears, nose, mouth and throat: Tacky oral mucosa Cardiovascular: Regular, Normal peripheral perfusion. Respiratory: Lungs are clear to auscultation, respirations are non-labored, breath sounds are equal, Symmetrical chest wall expansion. Gastrointestinal: Soft, Nontender, Non distended Musculoskeletal: Normal ROM, no deformity. Neurological: Alert and oriented, No focal neurological deficit observed. Psychiatric: Cooperative, appropriate mood & affect. Course Vital Signs: Vital signs: Vital Signs Temperature 97.6 F 01/10/25 17:53 Pulse Rate 78 01/10/25 17:53 Blood Pressure 137/60 01/10/25 17:53 Pulse Oximetry 98 01/10/25 17:53 Oxygen Delivery Me thod Room Air 01/10/25 17:53 MDM - Abdominal Pain Medical Decision Making Medical decision making: Patient's reason for coming to the emergency room Social determinants: Retired. I reviewed the patient's medical record. 69-year-old female with a history of cirrhosis, obstructive sleep apnea, hypothyroidism, hyperlipidemia, type 2 diabetes and hypertension I reviewed the patient's current home meds Not currently on any opiate therapy. I did review prescription monitoring program as well. Alternate historians: None needed Differential diagnosis: including but not limited to and based on the above HPI, review of systems and physical exam: With pain in her ribs with breathing touching and movement this is likely a strain of her ribs. Chest x-ray to rule out pneumonia or fractured ribs. Basic lab work. Orders placed to evaluate differential diagnosis based on the above differential, HPI and physical exam EKG: Time 1821. Rate 71. Normal sinus rhythm, ST changes, no ectopy, normal MI & QRS intervals, This was reviewed and interpreted by myself the ER physician at 1828 Chest x-ray: No acute process. No infiltrate. No pneumothorax. This was reviewed and interpreted by myself the emergency room physician. I also reviewed the radiology report. Lab Review: Laboratory results were reviewed and interpreted by myself the emergency room physician. No leukocytosis. No anemia. She has mild thrombocytopenia and elevated liver enzymes which is chronic in nature. No renal failure. Assessment of risk: Level of risk: Moderate. Patient has multiple comorbidities and extensive allergies. Hospitalization considerations: I found no evidence or reason for admission today. Reexamination: Patient remained stable. No increased work of breathing. No altered mental status. No focal motor deficits. No oxygen requirements Assessment and plan: Rib strain/pain ?Decadron in the emergency room - Discharged home - Discussed plan with patient. Answered any questions. - Evaluation and treatment of this problem were appropriate in the emergency setting. Lab Data 01/10/25 18:17 01/10/25 18:17 Labs/Radiology: Radiology Impressions Chest X-Ray 01/10/25 18:31 IMPRESSION: No acute intrathoracic abnormality. Laboratory Results WBC 6.41 10^3/uL (3.29-11.43) 01/10/25 18:17 RBC 3.82 10^6/uL (3.85-5.65) L 01/10/25 18:17 Hgb 12.00 g/dL (11.27-16.99) 01/10/25 18:17 Hct 34.6 % (36-47) L 01/10/25 18:17 MCV 90.6 fl (85-98) 01/10/25 18:17 MCH 31.4 pg (27-33) 01/10/25 18:17 MCHC 34.7 g/dL (30-55) 01/10/25 18:17 RDW 13.6 % (12.1-15.1) 01/10/25 18:17 Plt Count 89 10^3/cmm (157-399) L 01/10/25 18:17 MPV 11.2 fL (7.4-10.4) H 01/10/25 18:17 Neut % (Auto) 69.7 % 01/10/25 18:17 Lymph % (Auto) 14.7 % 01/10/25 18:17 [place] % (Auto) 11.9 % 01/10/25 18:17 Eos % (Auto) 2.8 % 01/10/25 18:17 Baso % (Auto) 0.6 % 01/10/25 18:17 Neut # (Auto) 4.47 10^3/uL (1.8-7.7) 01/10/25 18:17 Lymph # (Auto) 0.9 10^3/uL (0.8-4.8) 01/10/25 18:17 [place] # (Auto) 0.8 10^3/uL (0.2-0.9) 01/10/25 18:17 Eos # (Auto) 0.2 10^3/uL (0.0-0.8) 01/10/25 18:17 Baso # (Auto) 0.0 10^3/uL (0.0-0.1) 01/10/25 18:17 Nucleated RBC % (auto) 0 % 01/10/25 18:17 Nucleated RBCs # 0.0 /100WBC 01/10/25 18:17 Sodium 136 mmol/L (136-145) 01/10/25 18:17 Potassium 3.7 mmol/L (3.5-5.1) 01/10/25 18:17 Chloride 102 mmol/L (98-107) 01/10/25 18:17 Carbon Dioxide 23 mmol/L (22-29) 01/10/25 18:17 Anion Gap 14.7 (5-19) 01/10/25 18:17 BUN 11 mg/dL (8-23) 01/10/25 18:17 Creatinine 0.9 mg/dL (0.5-0.9) 01/10/25 18:17 GFR Calculation 62.5 mL/min (90-130) L 01/10/25 18:17 Glucose 91 mg/dL (65-115) 01/10/25 18:17 Calculated Osmolality 281 mOsm/kg (285-295) L 01/10/25 18:17 Lactic Acid 2.8 mmol/L (0.5-2.2) H 01/10/25 18:17 Calcium 9.9 mg/dL (8.5-10.5) 01/10/25 18:17 Total Bilirubin 1.6 mg/dL (0.15-1.2) H 01/10/25 18:17 AST 42 U/L (0-32) H 01/10/25 18:17 ALT 36 U/L (0-33) H 01/10/25 18:17 Alkaline Phosphatase 125 U/L (35-105) H 01/10/25 18:17 Total Protein 6.9 g/dL (6.6-8.7) 01/10/25 18:17 Albumin 4.0 g/dL (3.5-5.2) 01/10/25 18:17 Globulin 2.9 g/dL (1.3-4.6) 01/10/25 18:17 Lipase 69 U/L (13-60) H 01/10/25 18:17 Urine Color Yellow (Yellow) 01/10/25 18:14 Urine Appearance Clear (CLEAR) 01/10/25 18:14 Urine pH Not Reportable 01/10/25 18:14 Ur Specific Gardner Not Reportable 01/10/25 18:14 Urine Protein Not Reportable 01/10/25 18:14 Urine Glucose (UA) Not Reportable 01/10/25 18:14 Urine Ketones Not Reportable 01/10/25 18:14 Urine Blood Not Reportable 01/10/25 18:14 Urine Nitrate Not Reportable 01/10/25 18:14 Urine Bilirubin Not Reportable 01/10/25 18:14 Urine Urobilinogen Not Reportable 01/10/25 18:14 Ur Leukocyte Esterase Not Reportable 01/10/25 18:14 Urine RBC 0-2 /hpf (0-2) 01/10/25 18:14 Urine WBC 0-4 /hpf (0-5) H 01/10/25 18:14 Ur Squamous Epith Cells 0-4 /hpf (0-5) H 01/10/25 18:14 Amorphous Sediment Not Reportable 01/10/25 18:14 Urine Bacteria Trace /hpf (NONE) 01/10/25 18:14 All radiology interpretation(s) finalized by discharge Discharge Plan Discharge Patient Disposition: Home Clinical Impression: Rib pain Condition: Stable Prescriptions: New dexamethasone 6 mg tablet 6 mg PO DAILY 5 Days Qty: 5 0RF ondansetron 4 mg tablet,disintegrating 4 mg PO Q8H PRN (Reason: nausea and vomiting) Qty: 10 0RF No Action spironolactone 50 mg tablet 100 mg PO DAILY pantoprazole [Protonix] 40 mg tablet,delayed release (DR/EC) 40 mg PO DAILY PRN (Reason: Nausea And Vomiting) (DME) Custom Insoles See Rx Instructions .Route .MEDSUPPLY Qty: 1 0RF Rx Instructions: As directed (DME) 1 pair of custom insoles with diabetic shoes See Rx Instructions .Route .MEDSUPPLY Qty: 1 0RF Rx Instructions: As directed by [facility] metformin 500 mg tablet See Rx Instructions .ROUTE .COMPLEX Rx Instructions: 500mg po qam and 1000mg po bedtime levothyroxine 25 mcg tablet 25 mcg PO DAILY lactulose 10 gram/15 mL solution See Rx Instructions .ROUTE .COMPLEX Rx Instructions: 2 tablespoons po prn Xifaxan 550 mg tablet 550 mg PO BID Probiotic 1 cap PO DAILY PRN (Reason: gut health) ondansetron 4 mg tablet,disintegrating 4 mg PO Q6H PRN (Reason: nausea and vomiting) Qty: 14 0RF glipizide 5 mg tablet extended release 24hr 5 mg PO DAILY ondansetron HCl 4 mg tablet 4 mg PO Q8H PRN (Reason: nausea and vomiting) Qty: 14 0RF Januvia 100 mg tablet 100 mg PO DAILY ferrous fumarate [Ferrocite] 324 mg (106 mg iron) Tablet 324 mg PO DAILY nitrofurantoin monohyd/m-cryst [Macrobid] 100 mg capsule 100 mg PO BID Qty: 4 0RF Rx Instructions: must administer with a meal/food Discharge Orders: Discharge ED (Routine); Ordered 01/10/25 Ordered By: Helen Love Referrals: Kami Mcgee MD [Primary Care Provider, Family Practice] Discharge Diet: Usual diet Discharge Activity: Increase activity as tolerated Patient Instructions: Noncardiac Chest Pain (ED), Opioid Safety, Pain Management, Patient Portal & Vale Instructions Activity Restrictions/Additional Instructions: Thank you for choosing [facility] for your healthcare needs today. You have been screened and evaluated and felt safe for discharge. Health conditions do change or evolve sometimes and as such it is important that you follow up with your Primary Doctor to be re checked, 3-5 days is a general good time frame for follow up. You are always welcome to return to the ED for re assessment if your symptoms are worsening or you have new concerns Print Language: Lebanese Coding Level of Care Code ED Traffic Control Operator for Roberta Valdes
--- NOTE | 2025-01-10 18:08 | ECG_ITS ---
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 Measurements Intervals [place] Rate: 71 P: 42 HI: 172 QRS: -28 QRSD: 85 T: 32 QT: 414 QTc: 451 Interpretive Statements SINUS RHYTHM WITH OCCASIONAL SUPRAVENTRICULAR PREMATURE COMPLEXES LOW QRS VOLTAGE IN PRECORDIAL LEADS [QRS DEFLECTION < 1.0 mV IN CHEST LEADS] POSSIBLE ANTERIOR MYOCARDIAL INFARCTION , PROBABLY OLD [30 ms Q WAVE IN V3/V4, OR R < 0.2 mV IN V4] Compared to ECG 12/04/2023 22:29:28 No significant changes Electronically Signed On 01-12-2025 20:39:29 AUTO CLOCKS REPAIRER by Roberto Belcher M.D. [email or web address]
--- NOTE | 2025-01-10 18:31 | XRR_ITS ---
PROCEDURE INFORMATION: Exam: XR Chest Exam date and time: 01/10/2025 6:34 PM Age: 69 years old Clinical indication: Pain; Left-sided; Additional info: Left rib pain TECHNIQUE: Imaging protocol: Radiologic exam of the chest. Views: 1 view. COMPARISON: CR XR chest 1V portable [id number] 12/06/2023 6:58 AM FINDINGS: Lungs: Unremarkable. No consolidation. Pleural spaces: Unremarkable. No pleural effusion. No pneumothorax. Heart/Mediastinum: Unremarkable. No cardiomegaly. Bones/joints: Multilevel degenerative changes of the thoracic spine. Other findings: No acute intrathoracic abnormality. XR/XR chest 1V portable [id number] IMPRESSION: No acute intrathoracic abnormality.
[2025-01-10 18:33] LABS: UA Manual Slide Review YES; UA Slide Review UA Slide Review Perf
[2025-01-10 18:39] LABS: Hematocrit 34.6 % (36-47); Hemoglobin 12.00 g/dL (11.27-16.99); Mean Corpuscular HGB Conc 34.7 g/dL (30-55); Mean Corpuscular Hemoglobin 31.4 pg (27-33); Mean Corpuscular Volume 90.6 fl (85-98); Nucleated Red Blood Cells % 0 %; Platelet Count 89 10^3/cmm (157-399); Red Blood Count 3.82 10^6/uL (3.85-5.65); White Blood Count 6.41 10^3/uL (3.29-11.43)
[2025-01-10 18:43] LABS: Alanine Aminotransferase 36 U/L (0-33); Albumin Level 4.0 g/dL (3.5-5.2); Alkaline Phosphatase 125 U/L (35-105); Anion Gap 14.7 (5-19); Aspartate Amino Transferase 42 U/L (0-32); Blood Urea Nitrogen 11 mg/dL (8-23); Calcium 9.9 mg/dL (8.5-10.5); Carbon Dioxide 23 mmol/L (22-29); Chloride 102 mmol/L (98-107); Creatinine Clr Calc Pharmacy 59.9395; Globulin 2.9 g/dL (1.3-4.6); Glucose 91 mg/dL (65-115); Lipase 69 U/L (13-60); Osmolality Calculated 281 mOsm/kg (285-295); Potassium 3.7 mmol/L (3.5-5.1); Sodium 136 mmol/L (136-145); Total Protein 6.9 g/dL (6.6-8.7)
[2025-01-10 18:44] LABS: Lactic Sepsis W/Reflex 2.8 mmol/L (0.5-2.2)
[2025-01-10 19:03] VITALS: BP 117/70; PULSE 73; RESP 16; O2SAT 96
[2025-01-10 20:29] LABS: Reflex Lactate Order REFLEX LACTIC ORDERD
== END 2025-01-10 19:18 | disposition home or self-care (01) ==
PROVIDERS: Emergency Provider Emergency Medicine; PCP Family Medicine
DX: R07.89 Other chest pain (principal); Z79.84 Long term (current) use of oral hypoglycemic drugs; E11.9 Type 2 diabetes mellitus without complications; I10 Essential (primary) hypertension; E78.5 Hyperlipidemia, unspecified
CPT/HCPCS: 36415; 71045; 80053; 81001; 83605; 83690; 85025; 87040; 93005; 96372; 99285; J1100

== ENCOUNTER 2025-01-13 10:05 | Outpatient (CLI) | payer MEDICARE, MEDICAID, SELFPAY ==
[2025-01-13 11:10] LABS: Hematocrit 37.5 % (36-47); Hemoglobin 13.00 g/dL (11.27-16.99); Mean Corpuscular HGB Conc 34.7 g/dL (30-55); Mean Corpuscular Hemoglobin 31.0 pg (27-33); Mean Corpuscular Volume 89.5 fl (85-98); Nucleated Red Blood Cells % 0 %; Platelet Count 101 10^3/cmm (157-399); Red Blood Count 4.19 10^6/uL (3.85-5.65); White Blood Count 9.51 10^3/uL (3.29-11.43)
[2025-01-13 11:20] LABS: Estmated Average Glucose 85; Hemoglobin A1C 4.6 % (4.0-6.0)
[2025-01-13 11:40] LABS: Alanine Aminotransferase 54 U/L (0-33); Albumin Level 4.2 g/dL (3.5-5.2); Alkaline Phosphatase 123 U/L (35-105); Anion Gap 17.2 (5-19); Aspartate Amino Transferase 40 U/L (0-32); Blood Urea Nitrogen 21 mg/dL (8-23); Calcium 9.7 mg/dL (8.5-10.5); Carbon Dioxide 21 mmol/L (22-29); Chloride 105 mmol/L (98-107); Globulin 2.7 g/dL (1.3-4.6); Glucose 95 mg/dL (65-115); Osmolality Calculated 291 mOsm/kg (285-295); Potassium 4.2 mmol/L (3.5-5.1); Sodium 139 mmol/L (136-145); Total Protein 6.9 g/dL (6.6-8.7)
[2025-01-13 12:36] LABS: Iron 74 ug/dL (37-145)
== END 2025-01-13 10:06 | disposition home or self-care (01) ==
LOC: LAB 10:07
PROVIDERS: PCP Nurse Practitioner Family; Visit Provider Nurse Practitioner Family
DX: E11.9 Type 2 diabetes mellitus without complications (principal); I10 Essential (primary) hypertension; D64.9 Anemia, unspecified
CPT/HCPCS: 36415; 80053; 83036; 83540; 85025